=== PATIENT | female | born 1965 | race Hispanic/Latino ===

== ENCOUNTER 2019-08-10 18:23 | Emergency (ER) | payer OTHER, SELFPAY ==
[2019-08-10 18:50] LABS: Urine Blood 1+ (NEG); Urine Glucose NEGATIVE (NEG); Urine Protein NEGATIVE (NEG); Urine Specific Gravity >1.030 (1.005-1.030)
[2019-08-10 19:41] LABS: Absolute Lymphocytes (CBC) 2.3 K/uL (0.7-4.9); Basophils % 1.1 % (0-1.3); Hematocrit 32.2 % (36.0-45.0); Lymphocytes % 29.3 % (15.3-44.8); MPV 10.4 fL (7.6-11.3); RBC Red Blood Cell Count 4.62 M/uL (3.86-4.86)
[2019-08-10 20:06] LABS: Potassium 3.6 mmol/L (3.5-5.1)
[2019-08-10 20:08] LABS: ALT/SGPT 26 U/L (12-78); AST/SGOT 15 U/L (15-37); Albumin 3.8 g/dL (3.4-5.0); Alkaline Phosphatase 28 U/L (45-117); Bilirubin Direct < 0.1 mg/dL (0-0.2); Bilirubin Total 0.3 mg/dL (0.2-1.0); Lipase 93 U/L (73-393)
[2019-08-10] MEDS ORDERED: KETOROLAC 30 MG/ML INJ ONE (20:30)
[2019-08-10 20:35] LABS: Blood Morphology Comment NOTED (NOT SEEN); Elliptocytes 1+; Hypochromasia 1+; Platelet Estimate ADEQ; Urine White Blood Cell Casts OK
[2019-08-10 21:04] LABS: Urine Bacteria >50 /HPF (<20); Urine Culture Reflex Order REFLEXED
--- NOTE | 2019-08-10 21:19 | RAD REPORT ---
EXAM DESCRIPTION: CT - Abdomen Pelvis W Contrast - 08/10/2019 8:33 pm CLINICAL HISTORY: ABD PAIN COMPARISON: None. TECHNIQUE: Biphasic, helical CT imaging of the abdomen and pelvis was performed following 100 ml non -ionic IV contrast. No oral contrast administered. All CT scans are performed using dose optimization technique as appropriate and may include automated exposure control or mA/KV adjustment according to patient size. FINDINGS: No suspicious findings in the lung bases. Small hiatal hernia present. The liver, spleen, and pancreas show no suspicious findings. Cholecystectomy clips are present. No bi liary tree dilatation. Symmetric renal function is seen with no hydronephrosis or suspicious renal mass. No pyelonephritis o r acute parenchymal process. Contracted urinary bladder shows no suspicious finding. Uterus and ovari es show no suspicious findings. No adrenal abnormalities. No dilated bowel loops or bowel wall thickening. Appendix is normal. No free air, free fluid or infla mmatory stranding. No hernia, mass or bulky lymphadenopathy. No suspicious bony findings. IMPRESSION: No appendicitis or other acute right lower quadrant finding. No acute GI process identif iable. No acute or FREIGHT HUSTLER process seen. Small right ovarian cysts or follicles present not regarded as signi ficant.
[2019-08-10] MEDS ORDERED: CEFTRIAXONE/SWI 1gm 1 GM/10 ML SYR ONE (21:27)
--- NOTE | 2019-08-10 21:29 | ER ---
Nurse's Notes [facility] Name: Chelsea Sapp Age: 54 yrs Sex: Female : 1965 Arrival Date: 08/10/2019 Time: 18:25 Bed 14 Private MD: Diagnosis: Urinary tract infection, site not specified Presentation: 08/10 18:27 Presenting complaint: Patient states: RLQ pain, diarrhea, vaginal spotting started sr5 yesterday. Transition of care: patient was not received from another setting of care. Onset of symptoms was August 09, 2019. Risk Assessment: Do you want to hurt yourself or someone else? Patient reports no desire to harm self or others. Initial Sepsis Screen: Does the patient meet any 2 criteria? No. Patient's initial sepsis screen is negative. Does the patient have a suspected source of infection? No. Patient's initial sepsis screen is negative. Care prior to arrival: None. 18:27 Method Of Arrival: Ambulatory sr5 18:27 Acuity: CAMERON 3 sr5 Triage Assessment: 18:29 General: Appears in no apparent distress. Behavior is calm, cooperative. Pain: sr5 Complains of pain in right lower quadrant Pain currently is 10 out of 10 on a pain scale. Quality of pain is described as pressure, sharp. GI: Reports lower abdominal pain, diarrhea, vaginal bleeding Patient currently denies. : Denies burning with urination, pain urinary frequency. 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 - Social history:: Smoking status: Patient/guardian denies using tobacco, the patient reports quitting approximately 1 years ago. - Ebola Screening: : Patient negative for fever greater than or equal to 101.5 degrees Fahrenheit, and additional compatible Ebola Virus Disease symptoms. Screenin:25 Abuse screen: Denies threats or abuse. Nutritional screening: No deficits noted. lc1 Tuberculosis screening: No symptoms or risk factors identified. Fall Risk None identified. Assessment: 19:21 General: Appears in no apparent distress. comfortable, well groomed, Behavior is calm, lc1 cooperative. Pain: Complains of pain in abdomen and right lower quadrant Pain currently is 10 out of 10 on a pain scale. Quality of pain is described as sharp, Pain began 1 day ago. Is continuous. Neuro: No deficits noted. Cardiovascular: No deficits noted. Respiratory: Airway is patent Trachea midline Respiratory effort is even, unlabored. GI: Bowel sounds present X 4 quads. Abdomen is tender to palpation in right lower quadrant Reports diarrhea. : No signs and/or symptoms were reported regarding the genitourinary system. EENT: No signs and/or symptoms were reported regarding the EENT system. Derm: No signs and/or symptoms reported regarding the dermatologic system. Musculoskeletal: No signs and/or symptoms reported regarding the musculoskeletal system. 19:27 : Reports vaginal bleeding that is that started 08/09, along with the abdominal pain lc1 and diarrhea. LMP was 07/31. 20:00 Reassessment: No changes from previously documented assessment. Patient and/or family lc1 updated on plan of care and expected duration. Pain level reassessed. Patient is alert, oriented x 3, equal unlabored respirations, skin warm/dry/pink. Patient states symptoms have not improved. 21:00 Reassessment: No changes from previously documented assessment. Patient and/or family lc1 updated on plan of care and expected duration. Pain level reassessed. Patient is alert, oriented x 3, equal unlabored respirations, skin warm/dry/pink. Patient states symptoms have improved. Vital Signs: 18:29 BP 143 / 91; Pulse 97; Resp 16; Temp 98.0; Pulse Ox 100% on R/A; Weight 54.43 kg; sr5 Height 5 ft. 2 in. (157.48 cm); Pain 10/10; 19:25 BP 127 / 80; Pulse 89; Resp 18; Pulse Ox 100% on R/A; lc1 20:00 BP 129 / 90; Pulse 90; Resp 18; Pulse Ox 100% on R/A; lc1 21:00 BP 132 / 85; Pulse 91; Resp 18; Pulse Ox 100% on R/A; lc1 21:45 BP 126 / 96; Pulse 92; Resp 18; Temp 98.6(O); Pulse Ox 100% on R/A; lc1 18:29 Body Mass Index 21.95 (54.43 kg, 157.48 cm) sr5 ED Course: 18:25 Patient arrived in ED. rg4 18:29 Triage completed. sr5 18:29 Arm band placed on. sr5 18:55 [facility] kb 18:56 Garrick Nguyen MD is Attending Physician. kb 19:08 Nathalia Dunn is Primary Nurse. lc1 19:25 Patient has correct armband on for positive identification. Placed in gown. Bed in low lc1 position. Adult w/ patient. Pulse ox on. NIBP on. 19:29 Inserted saline lock: 20 gauge in left antecubital area, using aseptic technique. 6 19:54 Radiology exam delayed due to lab results not completed at this time. (BUN/Creatinine). 20:34 CT Abd/Pelvis - IV Contrast Only In Process Unspecified. EDMS 21:00 Door closed. Noise minimized. Lights dimmed. Warm blanket given. lc1 21:00 No provider procedures requiring assistance completed. 1 21:45 IV discontinued, intact, bleeding controlled, Pressure dressing applied. lc1 Administered Medications: 20:50 Drug: TORadol - Ketorolac 15 mg Route: IVP; Site: right antecubital; 1 21:13 Follow up: Response: Pain is decreased; RASS: Alert and Calm (0) 1 21:28 Drug: Rocephin 1 grams Route: IV; Rate: calculated rate; Site: right antecubital; 1 21:29 Follow up: Response: No adverse reaction lc1 21:47 Follow up: Response: No adverse reaction; IV Status: Completed infusion [facility] Outcome: 21:28 Discharge ordered by . kb 21:45 Discharged to home ambulatory. lc1 21:45 Condition: good 21:45 Discharge instructions given to patient, Instructed on discharge instructions, follow up and referral plans. medication usage, Demonstrated understanding of instructions, follow-up care, medications, Prescriptions given X 1. 21:47 Patient left the ED. lc1 Addendum: 08/13/2019 07:30 Addendum: Culture Results: Positive urine culture. No further action required. Bacteria e b sensitive to prescribed antibiotic. Signatures: Dispatcher [employer] EDFL Charo Browne FNP-C INDUSTRIAL DESIGN ENGINEER-Joshua Denton Nathalia Dunn lc1 Caesar Batres RN RN sr5 Janette Peterson rg4 Zayra Carrizales Candace cm6 Corrections: (The following items were deleted from the chart) 08/10 19:28 19:21 Musculoskeletal: No signs and/or symptoms reported regarding the musculoskeletal lc1 system. lc1
--- NOTE | 2019-08-10 21:30 | EDPHYS ---
Physician Documentation [facility] Name: Chelsea Sapp Age: 54 yrs Sex: Female : 1965 Arrival Date: 08/10/2019 Time: 18:25 Bed 14 Private MD: ED Physician Garrick Nguyen HPI: 08/10 19:55 This 54 yrs old Female presents to ER via Ambulatory with complaints of kb Abdominal Pain, Vaginal Bleeding. 19:55 The patient presents with abdominal pain. kb 19:55 Onset: The symptoms/episode began/occurred yesterday. The symptoms do not radiate. kb Associated signs and symptoms: Pertinent positives: diarrhea, vaginal bleeding. The symptoms are described as constant. Modifying factors: The symptoms are alleviated by nothing, the symptoms are aggravated by nothing. Severity of pain: At its worst the pain was mild moderate in the emergency department the pain is unchanged. The patient has not experienced similar symptoms in the past. The patient has not recently seen a physician. 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 - Social history:: Smoking status: Patient/guardian denies using tobacco, the patient reports quitting approximately 1 years ago. - Ebola Screening: : Patient negative for fever greater than or equal to 101.5 degrees Fahrenheit, and additional compatible Ebola Virus Disease symptoms. ROS: 19:50 Constitutional: Negative for fever, chills, and weight loss, ENT: Negative for injury, kb pain, and discharge, Neck: Negative for injury, pain, and swelling, Cardiovascular: Negative for chest pain, palpitations, and edema, Respiratory: Negative for shortness of breath, cough, wheezing, and pleuritic chest pain, Back: Negative for injury and pain, MS/Extremity: Negative for injury and deformity, Skin: Negative for injury, rash, and discoloration, Neuro: Negative for headache, weakness, numbness, tingling, and seizure. 19:50 Abdomen/GI: Positive for abdominal pain, diarrhea. 19:50 : Positive for vaginal bleeding. Exam: 19:52 Constitutional: This is a well developed, well nourished patient who is awake, alert, kb and in no acute distress. Head/Face: Normocephalic, atraumatic. ENT: Nares patent. No nasal discharge, no septal abnormalities noted. Tympanic membranes are normal and external auditory canals are clear. Oropharynx with no redness, swelling, or masses, exudates, or evidence of obstruction, uvula midline. Mucous membranes moist. Neck: Trachea midline, no thyromegaly or masses palpated, and no cervical lymphadenopathy. Supple, full range of motion without nuchal rigidity, or vertebral point tenderness. No Meningismus. Chest/axilla: Normal chest wall appearance and motion. Nontender with no deformity. No lesions are appreciated. Cardiovascular: Regular rate and rhythm with a normal S1 and S2. No gallops, murmurs, or rubs. Normal PMI, no JVD. No pulse deficits. Respiratory: Lungs have equal breath sounds bilaterally, clear to auscultation and percussion. No rales, rhonchi or wheezes noted. No increased work of breathing, no retractions or nasal flaring. Back: No spinal tenderness. No costovertebral tenderness. Full range of motion. Skin: Warm, dry with normal turgor. Normal color with no rashes, no lesions, and no evidence of cellulitis. MS/ Extremity: Pulses equal, no cyanosis. Neurovascular intact. Full, normal range of motion. Neuro: Awake and alert, GCS 15, oriented to person, place, time, and situation. Cranial nerves II-XII grossly intact. Motor strength 5/5 in all extremities. Sensory grossly intact. Cerebellar exam normal. Normal gait. 19:52 Abdomen/GI: Inspection: abdomen appears normal, Bowel sounds: normal, in all quadrants, Palpation: soft, in all quadrants, mild abdominal tenderness, in the right lower quadrant and left lower quadrant, moderate abdominal tenderness, in the right upper quadrant and left upper quadrant. Vital Signs: 18:29 BP 143 / 91; Pulse 97; Resp 16; Temp 98.0; Pulse Ox 100% on R/A; Weight 54.43 kg; sr5 Height 5 ft. 2 in. (157.48 cm); Pain 10/10; 19:25 BP 127 / 80; Pulse 89; Resp 18; Pulse Ox 100% on R/A; lc1 20:00 BP 129 / 90; Pulse 90; Resp 18; Pulse Ox 100% on R/A; lc1 21:00 BP 132 / 85; Pulse 91; Resp 18; Pulse Ox 100% on R/A; lc1 21:45 BP 126 / 96; Pulse 92; Resp 18; Temp 98.6(O); Pulse Ox 100% on R/A; lc1 18:29 Body Mass Index 21.95 (54.43 kg, 157.48 cm) sr5 MDM: 18:56 Patient medically screened. kb 19:55 Data reviewed: vital signs, nurses notes. Data interpreted: Pulse oximetry: on room air kb is 100 %. Interpretation: normal. 21:26 Counseling: I had a detailed discussion with the patient and/or guardian regarding: the kb historical points, exam findings, and any diagnostic results supporting the discharge/admit diagnosis, lab results, radiology results, the need for outpatient follow up, a family practitioner, to return to the emergency department if symptoms worsen or persist or if there are any questions or concerns that arise at home. 08/10 18:46 Order name: Urine Dipstick--Ancillary (enter results); Complete Time: 18:56 ar5 08/10 18:46 Order name: Urine --Ancillary (enter results); Complete Time: 18:56 ar5 08/10 18:56 Order name: Urine Microscopic Only; Complete Time: 21:06 kb 08/10 18:56 Order name: Basic Metabolic Panel; Complete Time: 20:08 kb 08/10 18:56 Order name: CBC with Diff; Complete Time: 20:37 kb 08/10 19:01 Order name: Lipase; Complete Time: 20:16 kb 08/10 18:56 Order name: IV Saline Lock; Complete Time: 21:13 kb 08/10 18:56 Order name: Labs collected and sent; Complete Time: 21:13 kb 08/10 19:01 Order name: LFT's; Complete Time: 20:16 kb 08/10 19:03 Order name: CT Abd/Pelvis - IV Contrast Only; Complete Time: 21:26 kb 08/10 20:36 Order name: CBC Smear Scan; Complete Time: 20:37 EDMS 08/10 21:06 Order name: Urine Culture EDMS Administered Medications: 20:50 Drug: TORadol - Ketorolac 15 mg Route: IVP; Site: right antecubital; lc1 21:13 Follow up: Response: Pain is decreased; RASS: Alert and Calm (0) 1 21:28 Drug: Rocephin 1 grams Route: IV; Rate: calculated rate; Site: right antecubital; lc1 21:29 Follow up: Response: No adverse reaction lc1 21:47 Follow up: Response: No adverse reaction; IV Status: Completed infusion lc1 Disposition: 08/11 05:54 Co-signature as Attending Physician, Garrick Nguyen MD I agree with the assessment and rn plan of care. Disposition: 08/10/19 21:28 Discharged to Home. Impression: Urinary tract infection, site not specified. - Condition is Stable. - Discharge Instructions: Urinary Tract Infection, Adult, [id number]. - Prescriptions for Macrobid 100 mg Oral Capsule - take 1 capsule by ORAL route every 12 hours for 10 days; 20 capsule. - Medication Reconciliation Form, Thank You Letter, Antibiotic Education, Prescription Opioid Use form. - Follow up: Emergency Department; When: As needed; Reason: Worsening of condition. Follow up: Private Physician; When: 2 - 3 days; Reason: Recheck today's complaints, Continuance of care, Re-evaluation by your physician. Signatures: Dispatcher [employer] EDHI Charo Browne, GOLF BALL TRIMMER-C GOLF BALL TRIMMER-Fritzb Garrick Nguyen MD MD rn Calhoun, Nathalia 1 Resecker, Caesar RN RN sr5 Corrections: (The following items were deleted from the chart) 08/10 19:50 19:50 Abdomen/GI: Positive for abdominal pain, kb 21:47 21:28 08/10/2019 21:28 Discharged to Home. Impression: Urinary tract infection, site lc1 not specified. Condition is Stable. Forms are Medication Reconciliation Form, Thank You Letter, Antibiotic Education, Prescription Opioid Use. Follow up: Emergency Department; When: As needed; Reason: Worsening of condition. Follow up: Private Physician; When: 2 - 3 days; Reason: Recheck today's complaints, Continuance of care, Re-evaluation by your physician. kb
[2019-08-10 22:28] VITALS: O2SAT 100
[2019-08-10 22:33] VITALS: BP 126/96; TEMP 98.6
== END 2019-08-10 21:47 | disposition home or self-care (01) ==
LOC: ER 18:23
DX: N39.0 Urinary tract infection, site not specified (principal)
CPT/HCPCS: 36415; 74177; 80048; 80076; 81003; 81015; 81025; 83690; 85025; 87077; 87086; 87088; 87186; 96365; 96375; 99284; J0696; Q9967

== ENCOUNTER 2020-05-06 17:57 | Inpatient (IN) | payer OTHER, SELFPAY ==
--- OUTSIDE RECORDS SUMMARY | 2020-05-06 17:59 | XMS REPORT | Continuity of Care Document ---
:1965 Author Organization [facility] t Address [address] [place] [address] Care Team Providers Name Role Phone Sea Barbosa Attending Clinician Problems This patient has no known problems. Allergies, Adverse Reactions, Alerts This patient has no known allergies or adverse reactions. Medications This patient has no known medications. Procedures This patient has no known procedures. Encounters Start End Encounter Admission Attending Care Care Encounter Source Date/Time Date/Time Type Type Clinicians Facility Department ID 2019-05-01 2019-05-01 Telephone GISSELLE Guzman [id number] 00:00:00 00:00:00 Lizbeth Osei NET DEVELOPER CONSULTANT [id number] REGIONAL [id number] MATERNAL [id number] & CHILD [address] [place] [address] Results This patient has no known results.
[2020-05-06] MEDS ORDERED: NA CHLORIDE 0.9% 2,000 ML ONE (18:43)
[2020-05-06] MEDS ORDERED: PIPER/TAZO/NS 3.375gm 3.375 GM/100 ML BAG ONE (19:06)
[2020-05-06] MEDS ORDERED: FENTANYL CITR 100 MCG/2 ML ONE (19:06)
[2020-05-06] MEDS ORDERED: ACETAMINOPHEN 500 MG TAB ONE (19:06)
[2020-05-06] MEDS ORDERED: CLINDAMYCIN 600MG/D5W 600 MG/50 ML BAG IV ONE (19:06)
[2020-05-06 19:20] LABS: Basophils % 0.5 % (0-1.3); Hematocrit 40.7 % (36.0-45.0); RBC Red Blood Cell Count 4.93 M/uL (3.86-4.86)
[2020-05-06 19:21] LABS: Protime INR 1.15
--- NOTE | 2020-05-06 19:24 | RAD REPORT ---
EXAM DESCRIPTION: RAD - Chest Single View - 05/06/2020 7:01 pm CLINICAL HISTORY: FEVER COMPARISON: None TECHNIQUE: AP portable chest image was obtained 05/06/2020 7:01 pm . FINDINGS: Lungs are clear. Heart and vasculature are normal. No measurable pleural effusion and no p neumothorax. No acute bony abnormality seen. No acute aortic findings suspected. IMPRESSION: No acute cardiopulmonary process.
[2020-05-06 19:45] LABS: ALT/SGPT 58 U/L (12-78); AST/SGOT 44 U/L (15-37); Albumin 3.6 g/dL (3.4-5.0); Alkaline Phosphatase 59 U/L (45-117); BUN Blood Urea Nitrogen 16 mg/dL (7-18); Bicarbonate 23 mmol/L (21-32); Bilirubin Direct 0.3 mg/dL (0-0.2); Bilirubin Total 0.9 mg/dL (0.2-1.0); CKMB Creatine Kinase MB < 1.0 ng/mL (0.3-3.6); Creatine Phosphokinase 33 U/L (26-192); Glucose Level 94 mg/dL (74-106); Lipase 48 U/L (73-393); Potassium 3.5 mmol/L (3.5-5.1); Protein, Total 9.2 g/dL (6.4-8.2); Sodium Level 134 mmol/L (136-145); Troponin (Emerg Dept Use Only) < 0.02 ng/mL (0.0-0.045)
--- NOTE | 2020-05-06 20:42 | RAD REPORT ---
EXAM DESCRIPTION: CT - Facial Bones W Con Mpr - 05/06/2020 8:14 pm CLINICAL HISTORY: Right-sided facial swelling COMPARISON: None. TECHNIQUE: Axial 2 millimeter thick images of the facial bones were obtained with sagittal and coron al reconstruction imaging. All CT scans are performed using dose optimization technique as appropriate and may include automated exposure control or mA/KV adjustment according to patient size. FINDINGS: Edema is seen in the right-sided facial tissues. Adjacent to the lateral margin of the max illary sinus, there is a 10 x 3 mm focal air in fluid collection. This is most likely a small abscess . This may be superior migration from the maxilla. The lateral maxillary sinus wall is intact. There is mucosal thickening but no air-fluid level in the right maxillary sinus. No bone destructive changes are identified. Mucosal thickening and air-fluid level are present fillin g the left maxillary sinus. Frontal, ethmoid and sphenoid sinuses show no suspicious findings. No jenni be or orbital content abnormality. No vascular abnormality. No abnormal lymphadenopathy seen. The pharyngeal mucosa is unremarkable. No tonsil, epiglottis, tongue base or vocal cord abnormality seen. IMPRESSION: Small 10 x 3 mm air in fluid collection along the lower lateral wall of the right maxill gregorio sinus suspected to be a small abscess. This may be due to superior migration from the maxilla pro cess. The right maxillary sinus shows mucosal thickening without air-fluid level. Lateral sinus wall is int act.
[2020-05-06 21:21] LABS: Urine Blood TRACE (NEG); Urine Glucose NEGATIVE (NEG); Urine Protein TRACE (NEG); Urine pH 5.5 (5.0-7.0)
--- NOTE | 2020-05-06 21:56 | ER ---
Nurse's Notes [facility] Name: Chelsea Sapp Age: 55 yrs Sex: Female : 1965 Arrival Date: 05/06/2020 Time: 18:00 Bed 3 Private MD: Diagnosis: Cellulitis of face;Periapical abscess with sinus Presentation: 05/06 18:15 Chief complaint: Patient states: Swelling of R side of face since yesterday. Denies ca1 tooth cavity on that side. Denies difficulty swallowing and breathing. Coronavirus screen: Client denies travel out of the [place] in the last 14 days. At this time, the client does not indicate any symptoms associated with coronavirus-19. Ebola Screen: Patient negative for fever greater than or equal to 101.5 degrees Fahrenheit, and additional compatible Ebola Virus Disease symptoms Patient denies exposure to infectious person. Patient denies travel to an Ebola-affected area in the 21 days before illness onset. No symptoms or risks identified at this time. Initial Sepsis Screen: Does the patient meet any 2 criteria? No. Patient's initial sepsis screen is negative. Does the patient have a suspected source of infection? No. Patient's initial sepsis screen is negative. Risk Assessment: Do you want to hurt yourself or someone else? Patient reports no desire to harm self or others. Onset of symptoms was May 06, 2020. 18:15 Method Of Arrival: Ambulatory ca1 18:15 Acuity: CAMERON 2 ca1 MANAGER OF CLINICAL: 23:02 lmp unknown mg2 Historical: - Allergies: 18:18 No Known Allergies; ca1 - Home Meds: 18:18 None [Active]; ca1 - PMHx: 18:18 None; ca1 - PSHx: 18:18 Cholecystectomy; ca1 - Immunization history:: Flu vaccine status is unknown. - Social history:: Smoking status: unknown. Screenin:40 Abuse screen: Denies threats or abuse. Nutritional screening: No deficits noted. em Tuberculosis screening: No symptoms or risk factors identified. Fall Risk None identified. Assessment: 21:00 General: Appears in no apparent distress. comfortable, Behavior is calm, cooperative. mg2 Pain: Complains of pain in face. Neuro: Level of Consciousness is awake, alert, obeys commands, Oriented to person, place, time, situation. Cardiovascular: Capillary refill < 3 seconds Patient's skin is warm and dry. Respiratory: Airway is patent Respiratory effort is even, unlabored, Respiratory pattern is regular, symmetrical. GI: No signs and/or symptoms were reported involving the gastrointestinal system. EENT: swelling noted in the right cheek. Derm: Skin is intact, Skin is pink, warm \T\ dry. Vital Signs: 18:15 BP 125 / 94; Pulse 145; Resp 17 S; Temp 99.4(O); Pulse Ox 99% on R/A; Weight 56.7 kg ca1 (R); Height 5 ft. 2 in. (157.48 cm) (M); Pain 10/10; 20:05 BP 109 / 79; Pulse 107; Resp 18; Pulse Ox 99% ; mg2 21:00 BP 111 / 72; Pulse 98; Resp 18; Pulse Ox 100% on R/A; mg2 22:57 BP 113 / 69; Pulse 100; Resp 18; Temp 98.4; Pulse Ox 100% on R/A; mg2 18:15 Body Mass Index 22.86 (56.70 kg, 157.48 cm) ca1 ED Course: 18:00 Patient arrived in ED. mr 18:15 Arm band placed on right wrist. ca1 18:17 Triage completed. ca1 18:19 Bjorn Vora PA is PHCP. jr8 18:19 Garrick Nguyen MD is Attending Physician. jr8 18:33 Blaise Barriga, RN is Primary Nurse. em 18:40 Patient has correct armband on for positive identification. Placed in gown. Bed in low em position. Call light in reach. alarm security or surveillance monitor on. Pulse ox on. NIBP on. 18:40 Initial lab(s) drawn, by me, sent to lab. Inserted saline lock: 20 gauge in left wrist, em using aseptic technique. Blood collected. 19:01 Chest Single View XRAY In Process Unspecified. EDMS 20:15 CT Facial Bones W/ Con \T\ Mpr In Process Unspecified. EDMS 21:55 Sharif Barker is Hospitalizing Provider. jr8 23:02 No provider procedures requiring assistance completed. Patient admitted, IV remains in mg2 place. Administered Medications: 18:40 Drug: NS 0.9% (30 ml/kg) 30 ml/kg Route: IV; Rate: bolus; Site: left wrist; em 19:07 Drug: Acetaminophen 1000 mg Route: PO; 20:52 Follow up: Response: No adverse reaction mg2 19:09 Drug: fentaNYL (PF) 50 mcg {Note: RASS 0.} Route: IVP; Site: left forearm; 20:05 Follow up: Response: No adverse reaction mg2 19:11 Drug: Clindamycin 600 mg Route: IVPB; Infused Over: 30 mins; Site: left forearm; 19:41 Drug: Zosyn 3.375 grams Route: IVPB; Infused Over: 60 mins; Site: left forearm; 22:02 Drug: Decadron - Dexamethasone 10 mg Route: IVP; Site: left wrist; rv 22:16 Follow up: Response: No adverse reaction mg2 Outcome: 21:55 Decision to Hospitalize by Provider. jr8 23:02 Admitted to Tele accompanied by [facility], via wheelchair, room 406, with chart, Report mg2 called to JUSTINA Locke 23:02 Condition: stable 23:02 Instructed on the need for admit, Demonstrated understanding of instructions. 23:07 Patient left the ED. mg2 Signatures: Dispatcher [employer] Leydi Knight Edgar, RN JUSTINA em Bjorn Vora PA PA jr8 [facility] Toro Millan RN RN mg2 Freddie Prakash RN RN Carito French RN RN ca1 Corrections: (The following items were deleted from the chart) 23:04 22:57 BP 113 / 69; Pulse 100bpm; Resp 18bpm; Pulse Ox 100% RA; Temp 99.5F; mg2 mg2
--- NOTE | 2020-05-06 21:56 | EDPHYS ---
Physician Documentation [facility] Name: Chelsea Sapp Age: 55 yrs Sex: Female : 1965 Arrival Date: 05/06/2020 Time: 18:00 Bed 3 Private MD: ED Physician Garrick Nguyen HPI: 05/06 20:52 This 55 yrs old Female presents to ER via Ambulatory with complaints of Facial jr8 Swelling. 20:52 Patient stated that she had facial swelling that started early today but has worsened. jr8 HR upon arrival was 150. Non toxic in appearance. Denies dental pain . Severity of symptoms: At their worst the symptoms were moderate in the emergency department the symptoms are unchanged. The patient has not experienced similar symptoms in the past. The patient has not recently seen a physician. 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 - Social history:: Smoking status: unknown. ROS: 20:52 Eyes: Negative for injury, pain, redness, and discharge, ENT: Negative for injury, jr8 pain, and discharge, Neck: Negative for injury, pain, and swelling, Cardiovascular: Negative for chest pain, palpitations, and edema, Respiratory: Negative for shortness of breath, cough, wheezing, and pleuritic chest pain, Abdomen/GI: Negative for abdominal pain, nausea, vomiting, diarrhea, and constipation, Back: Negative for injury and pain, MS/Extremity: Negative for injury and deformity, Neuro: Negative for headache, weakness, numbness, tingling, and seizure. 20:52 Skin: Positive for swelling, of the face. Exam: 20:52 Eyes: Pupils equal round and reactive to light, extra-ocular motions intact. Lids and jr8 lashes normal. Conjunctiva and sclera are non-icteric and not injected. Cornea within normal limits. Periorbital areas with no swelling, redness, or edema. ENT: Nares patent. No nasal discharge, no septal abnormalities noted. Tympanic membranes are normal and external auditory canals are clear. Oropharynx with no redness, swelling, or masses, exudates, or evidence of obstruction, uvula midline. Mucous membranes moist. Neck: Trachea midline, no thyromegaly or masses palpated, and no cervical lymphadenopathy. Supple, full range of motion without nuchal rigidity, or vertebral point tenderness. No Meningismus. Cardiovascular: Tachycardic with a normal S1 and S2. No gallops, murmurs, or rubs. Normal PMI, no JVD. No pulse deficits. Respiratory: Lungs have equal breath sounds bilaterally, clear to auscultation and percussion. No rales, rhonchi or wheezes noted. No increased work of breathing, no retractions or nasal flaring. Abdomen/GI: Soft, non-tender, with normal bowel sounds. No distension or tympany. No guarding or rebound. No evidence of tenderness throughout. Back: No spinal tenderness. No costovertebral tenderness. Full range of motion. Skin: Warm, dry with normal turgor. Normal color with no rashes, no lesions, and no evidence of cellulitis. MS/ Extremity: Pulses equal, no cyanosis. Neurovascular intact. Full, normal range of motion. Neuro: Awake and alert, GCS 15, oriented to person, place, time, and situation. Cranial nerves II-XII grossly intact. Motor strength 5/5 in all extremities. Sensory grossly intact. Cerebellar exam normal. Normal gait. 20:52 Head/face: Noted is swelling, that is moderate, of the right cheek, tenderness, that is moderate, of the right cheek, small amount of lower periorbital edema noted to right side as well from extension of swelling from maxilla region . Vital Signs: 18:15 BP 125 / 94; Pulse 145; Resp 17 S; Temp 99.4(O); Pulse Ox 99% on R/A; Weight 56.7 kg ca1 (R); Height 5 ft. 2 in. (157.48 cm) (M); Pain 10/10; 20:05 BP 109 / 79; Pulse 107; Resp 18; Pulse Ox 99% ; mg2 21:00 BP 111 / 72; Pulse 98; Resp 18; Pulse Ox 100% on R/A; mg2 22:57 BP 113 / 69; Pulse 100; Resp 18; Temp 98.4; Pulse Ox 100% on R/A; mg2 18:15 Body Mass Index 22.86 (56.70 kg, 157.48 cm) ca1 MDM: 18:20 Patient medically screened. 8 20:54 Data reviewed: vital signs, nurses notes, lab test result(s), radiologic studies, CT [facility] scan, plain films. Data interpreted: Pulse oximetry: on room air is 99 %. Interpretation: normal. Counseling: I had a detailed discussion with the patient and/or guardian regarding: the historical points, exam findings, and any diagnostic results supporting the discharge/admit diagnosis, lab results, radiology results, the need for further work-up and treatment in the hospital. 21:54 ED course: Talked to Dr. Muñoz who will see patient in inpatient room in the AM. Also [facility] talked with Dr. Morocho who will see patient once stabilized and discharge so he can do the tooth extraction and I\T\D if necessary. Will admit to hospitalist . 05/06 18:32 Order name: Basic Metabolic Panel; Complete Time: 20:11 [facility] 05/06 18:32 Order name: Blood Culture Adult (2) [facility] 05/06 18:32 Order name: CBC with Diff; Complete Time: 19:29 [facility] 05/06 18:32 Order name: Ckmb; Complete Time: 20:11 [facility] 05/06 18:32 Order name: CPK; Complete Time: 20:11 [facility] 05/06 18:32 Order name: Lactate; Complete Time: 19:29 [facility] 05/06 18:32 Order name: LFT's; Complete Time: 20:11 [facility] 05/06 18:32 Order name: Lipase; Complete Time: 20:11 [facility] 05/06 18:32 Order name: Procalcitonin; Complete Time: 20:22 [facility] 05/06 18:32 Order name: Protime (+inr); Complete Time: 20:11 [facility] 05/06 18:32 Order name: Ptt, Activated; Complete Time: 20:11 [facility] 05/06 18:32 Order name: Troponin (emerg Dept Use Only); Complete Time: 20:11 05/06 18:32 Order name: Urine Microscopic Only [facility] 05/06 18:32 Order name: TSH; Complete Time: 20:11 [facility] 05/06 18:28 Order name: EKG; Complete Time: 18:29 ca1 05/06 18:28 Order name: EKG - Nurse/Tech; Complete Time: 18:28 ca1 05/06 18:32 Order name: Chest Single View XRAY; Complete Time: 19:29 05/06 18:32 Order name: Accucheck; Complete Time: 18:34 05/06 18:32 Order name: T4 Free; Complete Time: 20:11 05/06 19:30 Order name: CT Facial Bones W/ Con \T\ Mpr; Complete Time: 20:43 05/06 20:53 Order name: Urine --Ancillary (enter results); Complete Time: 21:27 tt3 05/06 20:53 Order name: Urine Dipstick--Ancillary (enter results); Complete Time: 21:27 tt3 05/06 22:16 Order name: COVID-19 mg2 05/06 22:39 Order name: CONS Physician Consult [facility] 05/06 18:32 Order name: Cardiac monitoring; Complete Time: 18:34 05/06 18:32 Order name: IV Saline Lock - Large Bore; Complete Time: 19:11 05/06 18:32 Order name: Labs collected and sent; Complete Time: 18:34 05/06 18:32 Order name: O2 Per Protocol; Complete Time: 18:34 05/06 18:32 Order name: O2 Sat Monitoring; Complete Time: 18:34 05/06 18:32 Order name: Urine Dipstick-Ancillary (obtain specimen); Complete Time: 20:53 jr8 Administered Medications: 18:40 Drug: NS 0.9% (30 ml/kg) 30 ml/kg Route: IV; Rate: bolus; Site: left wrist; em 19:07 Drug: Acetaminophen 1000 mg Route: PO; wh 20:52 Follow up: Response: No adverse reaction mg2 19:09 Drug: fentaNYL (PF) 50 mcg {Note: RASS 0.} Route: IVP; Site: left forearm; wh 20:05 Follow up: Response: No adverse reaction mg2 19:11 Drug: Clindamycin 600 mg Route: IVPB; Infused Over: 30 mins; Site: left forearm; wh 19:41 Drug: Zosyn 3.375 grams Route: IVPB; Infused Over: 60 mins; Site: left forearm; wh 22:02 Drug: Decadron - Dexamethasone 10 mg Route: IVP; Site: left wrist; rv 22:16 Follow up: Response: No adverse reaction mg2 Disposition: 05/07 07:04 Co-signature as Attending Physician, Garrick Nguyen MD. rn Disposition: 05/06/20 21:55 Hospitalization ordered by Sharif Barker for Inpatient Admission. Preliminary diagnosis are Cellulitis of face, Periapical abscess with sinus. - Bed requested for Telemetry/MedSurg (Inpatient). - Status is Inpatient Admission. mg2 - Condition is Stable. - Problem is new. - Symptoms have improved. Signatures: Dispatcher [employer] Blaise Teixeira, RN RN em Garrick Nguyen MD MD rn Bjorn Vora PA PA jr8 Radha Peterson RN RN Kaitlin Garcia Toro Millan RN RN mg2 Freddie Prakash RN RN rv Acob, Carito RN RN ca1 Corrections: (The following items were deleted from the chart) 05/06 22:44 21:55 Hospitalization Ordered by Sharif Barker for Inpatient Admission. Preliminary cg diagnosis is Cellulitis of face; Periapical abscess with sinus. Bed requested for Telemetry/MedSurg (Inpatient). Status is Inpatient Admission. Condition is Stable. Problem is new. Symptoms have improved. jr8 23:07 22:44 05/06/2020 21:55 Hospitalization Ordered by Sharif Barker for Inpatient mg2 Admission. Preliminary diagnosis is Cellulitis of face; Periapical abscess with sinus. Bed requested for Telemetry/MedSurg (Inpatient). Status is Inpatient Admission. Condition is Stable. Problem is new. Symptoms have improved. cg
[2020-05-06] MEDS ORDERED: dexAMETHasone 10 MG/ML VIAL ONE (22:13)
--- NOTE | 2020-05-06 23:00 | P.HP ---
Certification for Inpatient With expected LOS: >2 Midnights Patient will require the following post-hospital care: None Practitioner: I am a practitioner with admitting privileges, knowledge of patient current condition, hospital course, and medical plan of care. Services: Services provided to patient in accordance with Admission requirements found in Title 42 Section 412.3 of the Code of Federal Regulations Patient History Date of Service: 05/06/20 Reason for admission: FACIAL CELLULITIS History of Present Illness: 55-year-old female with no significant past medical history presents to the emergency room complaining of facial swelling. Patient states that she noted some facial swelling earlier today and has progressively worsened. States that she has not had any issues prior to this. Has not seen a dentist in many years. Denies dental pain. In the emergency room patient was noted to have an elevated heart rate of almost 150. She does not appear toxic, in distress or septic. She is alert and oriented. Pleasant and cooperative. Patient is noted to have swelling on the right side ever face with some mild erythema. Facial CT shows a small 10 x 3 mm air in fluid collection consistent with a small abscess at the lower lateral wall of the right maxillary sinus. Chest x-ray shows no acute cardiopulmonary process. Patient will be admitted and further evaluated. Allergies No Known Allergies Allergy (Unverified 05/06/20 22:52) Home medications list reviewed: Yes - Past Medical/Surgical History Diabetic: No -: None -: None Psychosocial/ Personal History: Lives at home with 2 children - Family History Family History: Reviewed- Non-Contributory - Social History Smoking Status: Never smoker Alcohol use: No CD- Drugs: No Caffeine use: No Place of Residence: Home Review of Systems General: Fever, As per HPI Eyes: Unremarkable ENT: Mouth Swelling, As per HPI Respiratory: Unremarkable Cardiovascular: Unremarkable Gastrointestinal: Unremarkable Genitourinary: Unremarkable Musculoskeletal: Unremarkable Integumentary: Unremarkable Neurological: Unremarkable Lymphatics: Unremarkable Physical Examination - Vital Signs Temperature: 99.4 F Blood Pressure: 109/79 Pulse: 107 Respirations: 18 Pulse Ox (%): 99 (RA) - Physical Exam General: Alert, In no apparent distress, Oriented x3 HEENT: Atraumatic, PERRLA, Mucous membr. moist/pink, Other (Right cheek swelling with erythema, multiple caries and poor dentition) Neck: Supple, No Thyromegaly, Other (Trachea midline) Respiratory: Clear to auscultation bilaterally, Normal air movement Cardiovascular: No edema, Normal pulses Capillary refill: <2 Seconds Gastrointestinal: Normal bowel sounds, Soft and benign, Non-distended Musculoskeletal: No clubbing, No swelling, No contractures, No erythema Integumentary: No rashes, No breakdown, No significant lesion, No tenderness/swelling Neurological: Normal gait, Normal speech, Normal strength at 5/5 x4 extr, Normal tone - Studies Laboratory Data (last 24 hrs) 05/06/20 18:40: PT 13.5 H, INR 1.15, APTT 34.0 05/06/20 18:40: WBC 18.1 H, Hgb 13.8, Hct 40.7, Plt Count 259 05/06/20 18:40: Sodium 134 L, Potassium 3.5, BUN 16, Creatinine 0.92, Glucose 94, Total Bilirubin 0.9, AST 44 H, ALT 58, Alkaline Phosphatase 59, Lipase 48 L Assessment and Plan - Plan Impression: Facial cellulitis with small abscess seen on CT complicated by history of poor oral dentition and multiple caries: Plan: Facial cellulitis with small abscess seen on CT complicated by history of poor oral dentition and multiple caries: Patient be started on IV antibiotics clindamycin and Zosyn for empirical coverage. ENT was consulted-Dr. Muñoz who will see patient tomorrow. Patient also instructed to follow up with FS Dr. Molina after discharge. Clear liquid diet. Monitor vitals. Discharge Plan: Home Plan to discharge in: Greater than 2 days - Advance Directives Does patient have a Living Will: No Does patient have a Durable POA for Healthcare: No - Code Status/Comfort Care Code Status Assessed: Yes Time Spent Managing Pts Care (In Minutes): 55
[2020-05-06 23:36] VITALS: BMI 22.4
[2020-05-06] MEDS ORDERED: ACETAMINOPHEN 500 MG TAB PO PRN (23:45)
[2020-05-06] MEDS ORDERED: POTASSIUM CL SA 10 MEQ TAB PO ONE (23:49)
[2020-05-07] MEDS: NA CHLORIDE 0.9% 1,000 ML IV SCH ×2 (00:11→19:45)
[2020-05-07] MEDS ORDERED: PIPER/TAZO/NS 3.375gm 3.375 GM/100 ML BAG ONE (00:22)
[2020-05-07] MEDS ORDERED: CLINDAMYCIN 600MG/D5W 600 MG/50 ML BAG IV ONE (00:22)
[2020-05-07 00:26] LABS: Urine Appearance CLEAR; Urine Bilirubin NEGATIVE (NEG); Urine Blood NEGATIVE (NEG); Urine Color YELLOW; Urine Glucose NEGATIVE (NEG); Urine Protein NEGATIVE (NEG); Urine Specific Gravity >=1.030 (1.005-1.030); Urine pH 5.5 (5.0-7.0)
[2020-05-07] MEDS ORDERED: CLINDAMYCIN PHOSPHATE 600 MG in NA CHLORIDE 0.9% 50 ML IV SCH (01:00)
[2020-05-07] MEDS ORDERED: CLINDAMYCIN 600MG/D5W 600 MG/50 ML BAG IV SCH (01:00)
[2020-05-07 01:06] LABS: Urine Bacteria <20 /HPF (<20); Urine Culture Reflex Order REFLEXED; Urine RBC <5 /HPF (NONE SEEN)
[2020-05-07] MEDS ORDERED: PIPER/TAZO/NS 3.375gm 3.375 GM/100 ML BAG IVPB SCH ×2 (02:00→09:00)
[2020-05-07 05:53] LABS: Absolute Lymphocytes (CBC) 0.8 K/uL (0.7-4.9); Basophils % 0.1 % (0-1.3); Hematocrit 34.4 % (36.0-45.0); Lymphocytes % 7.6 % (15.3-44.8); MPV 9.8 fL (7.6-11.3)
[2020-05-07 06:01] LABS: BUN Blood Urea Nitrogen 14 mg/dL (7-18); Bicarbonate 20 mmol/L (21-32); Glucose Level 116 mg/dL (74-106); Magnesium 2.3 mg/dL (1.8-2.4); Potassium 4.3 mmol/L (3.5-5.1); Sodium Level 137 mmol/L (136-145)
[2020-05-07 07:20] LABS: Anisocytosis 1+; Blood Morphology Comment NOTED (NOT SEEN); Platelet Estimate ADEQ; White Blood Cell Scan OK (OK)
--- NOTE | 2020-05-07 07:20 | CON ---
Date of Consultation: 05/07/2020 Reason For Consultation: Facial swelling. History Of Present Illness: The patient is a 55-year-old female, who complains of a 2 to 3 day history of right facial pain and swelling. She was in her usual state of health on Wednesday, Aprber . She recalls eating some chips and is concerned she may have scratched the inside of her mouth. She subsequently was eating some chicken and noticed some soreness or pain with chewing on t he right side. Over the ensuing 48 hours, she developed right facial pain and swelling, and came to the emergency room for evaluation. Past Medical History: None. Past Surgical History: None. Home Medications: None. Allergies: NONE. In-hospital Medications: IV clindamycin and IV Zosyn. Social History: Denies tobacco, alcohol, or drug use. Review of Systems: Reviewed as documented in the emergency room documentation by Bjorn Gordon and is essentially unchang ed. Physical Examination: Vital Signs: Stable. The patient is currently afebrile. General: The patient is awake, alert, oriented, and conversive. She appears comfortable in bed. HEENT: She has mild facial swelling of the right cheek and right lower eyelid without palpable crepi tus. Her cheek is mildly tender. There is some induration over the lower part of the cheek, just la teral to the nasolabial fold. There is no significant redness of the skin at this time. Her externa l ears, external nose and lips are unremarkable. Intraorally, she has very poor dentition with sever e gingivitis. There is moderate edema and tenderness of the right upper gingiva without visible poin ting from an abscess. There are no loose teeth on palpation. The tongue, floor, mouth, and orophary nx are unremarkable. Neck: Soft and supple without significant palpable lymphadenopathy. She has full range of motion. Data: The patient's white count on admission was elevated at 18. This morning, she improved with a white count of approximately 11. Contrasted CT of the face is personally reviewed by me. There is m oderate soft tissue swelling of the right cheek. There is a subtle area of hyperlucency of 3 x 10 mm along the face of the maxilla. There is moderate mucosal thickening of the right maxillary sinus. There is moderate to severe opacification of the left maxillary sinus. There are multiple periapical lucencies of the maxillary teeth, which appear worse on the left side despite the patient's right-si ded facial cellulitis. There is a small area of air density within the area around the soft tissue s welling against the cheek. There is no obvious discontinuity within the face of the bony maxillary w all. I reviewed these findings with the ER staff at the time of her admission and have a strong susp icion for a dental origin for her infection. Assessment: Facial cellulitis. Plan: We will continue initial trial of medical therapy at this time. We will switch from full liqu id diet to clear liquid diet this morning. I will plan to reassess the patient around 12 or 1230 thi s afternoon and make a decision in regard to surgical intervention. If the patient is significantly improved, we will continue medical therapy. If she is not improving, we will make a plan for operati ve intervention, including an intraoral incision, drainage of abscess. My hope is that with the very small abscess cavity on the CT scan, she may respond to medical therapy. She will require urgent de ntal or maxillofacial surgery intervention to care for the teeth as a primary source of this infectio n. We will continue to follow along with you. MC Voice ID: [id number] Report ID: [id number]
[2020-05-07] MEDS: ENOXAPARIN 40 MG/0.4 ML SQ SCH (07:41)
[2020-05-07] MEDS: CLINDAMYCIN PHOSPHATE IV SCH ×2 (07:54→16:14)
[2020-05-07] MEDS: NA CHLORIDE 0.9% IV SCH ×2 (07:54→16:14)
--- NOTE | 2020-05-07 15:27 | P.PN ---
Subjective Date of Service: 05/07/20 Chief Complaint: FACIAL CELLULITIS Patient states her right facial swelling is better compared to yesterday. Physical Examination - Vital Signs Temperature: 97.8 F Blood Pressure: 105/56 Pulse: 88 Respirations: 16 Pulse Ox (%): 99 - Physical Exam General: Alert, In no apparent distress HEENT: Other (Right facial swelling) Respiratory: Clear to auscultation bilaterally, Normal air movement Cardiovascular: No edema, Regular rate/rhythm, Normal S1 S2 Gastrointestinal: Normal bowel sounds, Soft and benign, No tenderness Integumentary: No rashes Neurological: Other (Nonfocal) - Studies Laboratory Data (last 24 hrs) 05/06/20 18:40: PT 13.5 H, INR 1.15, APTT 34.0 05/06/20 18:40: WBC 18.1 H, Hgb 13.8, Hct 40.7, Plt Count 259 05/06/20 18:40: Sodium 134 L, Potassium 3.5, BUN 16, Creatinine 0.92, Glucose 94, Total Bilirubin 0.9, AST 44 H, ALT 58, Alkaline Phosphatase 59, Lipase 48 L Microbiology Data (last 24 hrs): 05/06/20 22:20 Nasopharnyx Coronavirus COVID-19 PCR - Final Assessment And Plan - Current Problems (Diagnosis) (1) Cellulitis and abscess of face Current Visit: Yes Status: Acute (2) Leukocytosis Current Visit: Yes Status: Acute - Plan Change antibiotics to IV Unasyn and clindamycin. Patient seen and evaluated by ENT-Dr. Muñoz. She is planned for examination and abscess drainage today. Pain management as needed.
[2020-05-07] MEDS: AMPICILLIN/SULBACT 1.5 GM in NA CHLORIDE 0.9% 100 ML IVPB SCH (16:14)
[2020-05-07] MEDS ORDERED: LIDOCAINE 1% W/EPI 1:100,000 MDV 20 ML VIAL ONE (16:29)
[2020-05-07] MEDS ORDERED: Ringers Lactate 1,000 ML IV ONE (16:30)
[2020-05-07] MEDS ORDERED: propofoL 200 MG/20 ML VIAL IV ONE (16:34)
[2020-05-07] MEDS ORDERED: LIDOCAINE 1% MPF 5 ML VIAL ONE (16:34)
[2020-05-07] MEDS ORDERED: FENTANYL CITR 100 MCG/2 ML ONE (16:34)
[2020-05-07] MEDS ORDERED: MIDAZOLAM HCL 2 MG/2 ML INJ ONE (16:34)
[2020-05-07] MEDS ORDERED: GLYCOPYRROLATE 0.2 MG/ML SYR ONE ×2 (16:34→16:35)
[2020-05-07] MEDS ORDERED: NEOSTIGMINE 1 MG/ML -5 ML ONE (16:35)
[2020-05-07] MEDS ORDERED: dexAMETHasone 4 MG/ML VIAL ONE (16:35)
[2020-05-07] MEDS ORDERED: ROCURONIUM 50 MG/5 ML VIAL IV ONE (16:36)
[2020-05-07] MEDS ORDERED: ONDANSETRON 4 MG/2 ML VIAL ONE (16:36)
[2020-05-07] MEDS ORDERED: KETOROLAC 30 MG/ML INJ ONE (17:35)
[2020-05-07] MEDS ORDERED: CHLORHEXIDINE 0.12% 473ML BOT MM ONE (17:45)
--- NOTE | 2020-05-07 17:59 | P.BOP ---
Preoperative diagnosis: facial abscess Postoperative diagnosis: facial cellulitis Primary procedure: I&D right face, intraoral approach Front Office Administrator: NONE,NONE Estimated blood loss: <10ml Specimen: none Findings: No мария purulence Anesthesia: General Complications: None Implants: none Fluids & blood products: crystalloid 200ml Transferred to: Recovery Room Condition: Good
[2020-05-07 18:33] VITALS: O2SAT 99
[2020-05-07] MEDS ORDERED: HYDROCODONE/APAP 5/325 MG TAB PO PRN (20:13)
--- NOTE | 2020-05-07 20:40 | OP ---
Surgeon: Daxa Muñoz MD Preoperative Diagnosis: Right facial abscess of odontogenic origin. Postoperative Diagnosis: Right facial abscess of odontogenic origin with suspicion for facial cellul itis. Indication For Procedure: Ms. Sapp presented with right facial swelling and facial pain. She was noted to have significant soft tissue swelling with a 10 x 3 mm abscess on the face of the right maxi lla with concerns radiographically on my read for a dental origin. She had mild to moderate mucosal thickening of the right maxillary sinus without obstruction of the ostiomeatal complex and multiple p eriapical lucencies on her maxillary teeth. She was treated with IV antibiotics for 3 doses with mil d improvement. However, due to the persistent presence of swelling, decision was made to proceed wit h operative intervention. The risks, benefits, and alternatives to the procedure were discussed with the patient, who agreed to proceed. Description Of Procedure: The patient was brought to the operating room. She was placed under gener al anesthetic via oral endotracheal tube. The head of bed was rotated approximately 45 degrees. A s mall mouth prop was placed between the left teeth to allow for better visualization. Cheek retractor was used to retract the upper lip and right oral commissure. The mucosa along the upper gingival bu ccal sulcus was injected with 2 mL of 1% lidocaine with epinephrine. A 1 cm incision through the muc griffin and submucosal tissues was made using a 15 blade scalpel. A clamp was used to probe into the sof t tissues of the cheek and along the face of the maxilla taking care to avoid extension towards the i nfraorbital foramen. After multiple areas of probing, no discrete fluid collection or pus was noted. Irrigation through an Angiocath was performed to irrigate and flush out the soft tissues, but again no мария purulence was noted. After multiple aliquots of irrigation, gauze sponge was applied to th e incision for several minutes to aid in hemostasis. The incision was left to heal spontaneously and the patient was returned to care of Anesthesia for awakening and extubation in the operating room. Disposition: The patient will return to the inpatient floor and continue IV antibiotics. She can re sume soft diet as tolerated. She is recommended to use chlorhexidine 3 times a day and to rinse her mouth well with water after meals. If she is doing well and tolerating diet and improved, she can be discharged in the morning according to the primary team. NIYA/MU Voice ID: [id number] Report ID: [id number]
[2020-05-07] MEDS: CHLORHEXIDINE 0.12% 473ML BOT MM SCH (21:00)
[2020-05-07] MEDS: MORPHINE 2 MG/ML SYR IV PRN (21:10)
[2020-05-08] MEDS: CLINDAMYCIN PHOSPHATE IV SCH ×2 (00:04→07:35)
[2020-05-08] MEDS: NA CHLORIDE 0.9% IV SCH ×2 (00:04→07:35)
[2020-05-08] MEDS: AMPICILLIN/SULBACT 1.5 GM in NA CHLORIDE 0.9% 100 ML IVPB SCH ×2 (00:04→07:35)
[2020-05-08] MEDS: NA CHLORIDE 0.9% 1,000 ML IV SCH (00:08)
[2020-05-08] MEDS: MORPHINE 2 MG/ML SYR IV PRN (04:25)
[2020-05-08] MEDS: ENOXAPARIN 40 MG/0.4 ML SQ SCH (07:35)
[2020-05-08] MEDS: CHLORHEXIDINE 0.12% 473ML BOT MM SCH (07:37)
[2020-05-08] MEDS ORDERED: KETOROLAC 30 MG/ML INJ IV PRN (10:52)
--- NOTE | 2020-05-08 11:02 | P.DS ---
Admission Date: 05/06/20 Discharge Date: 05/08/20 Disposition: ROUTINE DISCHARGE Discharge Condition: FAIR Reason for Admission: FACIAL CELLULITIS - Problems (1) Cellulitis and abscess of face Current Visit: Yes Status: Acute (2) Leukocytosis Current Visit: Yes Status: Acute Vital Signs/Physical Exam: Temp Pulse Resp BP Pulse Ox 98.4 F 84 18 118/64 98 05/08/20 08:00 05/08/20 08:00 05/08/20 08:00 05/08/20 08:00 05/08/20 08:00 Laboratory Data at Discharge: WBC 11.1 K/uL (4.3-10.9) H D 05/07/20 05:28 Hgb 11.6 g/dL (12.0-15.0) L 05/07/20 05:28 Hct 34.4 % (36.0-45.0) L D 05/07/20 05:28 Plt Count 207 K/uL (152-406) D 05/07/20 05:28 PT 13.5 SECONDS (9.5-12.5) H 05/06/20 18:40 INR 1.15 05/06/20 18:40 APTT 34.0 SECONDS (24.3-36.9) 05/06/20 18:40 Sodium 137 mmol/L (136-145) 05/07/20 05:28 Potassium 4.3 mmol/L (3.5-5.1) 05/07/20 05:28 BUN 14 mg/dL (7-18) 05/07/20 05:28 Creatinine 0.60 mg/dL (0.55-1.3) 05/07/20 05:28 Glucose 116 mg/dL (74-106) H 05/07/20 05:28 Magnesium 2.3 mg/dL (1.8-2.4) 05/07/20 05:28 Magnesium Cancelled 05/07/20 05:28 Total Bilirubin 0.9 mg/dL (0.2-1.0) 05/06/20 18:40 AST 44 U/L (15-37) H 05/06/20 18:40 ALT 58 U/L (12-78) 05/06/20 18:40 Alkaline Phosphatase 59 U/L (45-117) 05/06/20 18:40 Lipase 48 U/L (73-393) L 05/06/20 18:40 Home Medications: Amox/Clavulanate [Augmentin 875-125 Tab] 1 each PO BID #20 tab 05/08/20 Chlorhexidine 0.12% [Periogard*] 15 ml MM TID #1 btl 05/08/20 Codeine/APAP [Tylenol W/Codeine #3 tab] 1 tab PO Q6HP PRN #30 tab 05/08/20 Ibuprofen 800 mg PO Q8H PRN #60 tablet 05/08/20 clindamycin HCL [Clindamycin HCl] 300 mg PO Q6H #28 capsule 05/08/20 New Medications: Codeine/APAP [Tylenol W/Codeine #3 tab] 1 tab PO Q6HP PRN #30 tab PRN Reason: Pain Amox/Clavulanate [Augmentin 875-125 Tab] 1 each PO BID #20 tab clindamycin HCL [Clindamycin HCl] 300 mg PO Q6H #28 capsule Ibuprofen 800 mg PO Q8H PRN #60 tablet PRN Reason: pain Chlorhexidine 0.12% [Periogard*] 15 ml MM TID #1 btl Patient Discharge Instructions: You nee to see a dentist to examine your teeth and gums and treat gingivitis and caries. Diet: Regular (Soft diet) Activity: Ad chava Followup: Daxa Muñoz MD [ACTIVE - CAN ADMIT] - 1 Week
--- NOTE | 2020-05-08 12:06 | EKG ---
Test Date: 2020-05-06 Test Time: 18:26:19 Remote Encoding Operations Supervisor: EDGAR MEASUREMENT RESULTS: Intervals: Rate: 136 GA: 138 QRSD: 72 QT: 288 QTc: 433 [place]: P: 71 GA: 138 QRS: 67 T: 70 INTERPRETIVE STATEMENTS: Sinus tachycardia Otherwise normal ECG No previous ECG available for comparison Electronically Signed On 05-08-20 12:01:46 CDT by Walter Crane
[2020-05-08 12:08] VITALS: BP 111/66; TEMP 99.1
== END 2020-05-08 13:30 | disposition home or self-care (01) | DRG 580 ==
LOC: ER 17:57 → ERHOLD 22:37 → 4TH 23:02
PROVIDERS: ADMIT Internal Medicine; ATTEND Internal Medicine
PROC: 0J910ZZ Drainage of Face Subcutaneous Tissue and Fascia, Open Approach (ICD-10-PCS; principal; 2020-05-07 17:00)
DX: L03.211 Cellulitis of face (principal); L02.01 Cutaneous abscess of face; K02.9 Dental caries, unspecified; D72.829 Elevated white blood cell count, unspecified; Z90.49 Acquired absence of other specified parts of digestive tract; Z20.828 Contact with and (suspected) exposure to other viral communicable diseases
CPT/HCPCS: 36415; 70487; 71045; 76377; 80048; 80076; 81001; 81003; 81025; 82550; 82553; 83605; 83690; 83735; 84145; 84439; 84443; 84484; 85025; 85610; 85730; 87040; 87086; 87088; 93005; 99285; J0295; J1100; J1650; J2250; J2270; J2405; J2543; J2704; J2710; J3010; J7030; J7120; Q9967; S0077; U0002

== ENCOUNTER 2020-06-22 12:56 | Emergency (ER) | payer OTHER ==
--- OUTSIDE RECORDS SUMMARY | 2020-06-22 12:58 | XMS REPORT | Continuity of Care Document ---
:1965 Author Organization [facility] t Address [address] [place] [address] Care Team Providers Name Role Phone Sea [...] 2019-05-01 2019-05-01 Telephone GISSELLE Guzman [id number] 00:00:00 00:00:00 Lizbeth Osei MANAGED SERVICES CONSULTANT [id number] [facility] [id number] MATERNAL [phone] & CHILD [address] [place] [address] Results This patient has no known results.
[2020-06-22] MEDS ORDERED: HYDROCODONE/APAP 10/325 TAB ONE (13:31)
[2020-06-22] MEDS ORDERED: IBUPROFEN 400 MG TAB ONE (13:32)
[2020-06-22] MEDS ORDERED: DIAZEPAM 5 MG TABLET ONE (13:32)
--- NOTE | 2020-06-22 14:48 | RAD REPORT ---
EXAM DESCRIPTION: RAD - Lumbar Spine 3 Views - 06/22/2020 1:59 pm CLINICAL HISTORY: Back pain FINDINGS: [id number] scoliosis No fracture or dislocation is seen. Minimal spondylosis involves the lumbar spine
--- NOTE | 2020-06-22 14:59 | EDPHYS ---
Physician Documentation [facility] Name: Chelsea Sapp Age: 55 yrs Sex: Female : 1965 Arrival Date: 06/22/2020 Time: 13:00 Bed 13 Private MD: ED Physician Simón Pederson HPI: 06/22 13:17 This 55 yrs old Female presents to ER via Ambulatory with complaints of jmm Nausea, Back Pain. 13:17 The patient presents with pain that is acute. Onset: The symptoms/episode jmm began/occurred this morning. The pain radiates to the right leg. Associated signs and symptoms: Pertinent negatives: abdominal pain, chest pain, dysuria, fever, hematuria, incontinence, numbness, tingling, urinary retention, weakness. This is a 55 year old female with no chronic medical conditions that presents to the ED with complaints of right sided back pain with radiation down her right leg. Patient states she awoke with the pain this morning. Denies weakness, incontinence, bowel or urinary complaints. Denies known injury. . Historical: - Allergies: 13:11 No Known Allergies; hb - Home Meds: 13:11 None [Active]; hb - PMHx: 13:11 None; hb - PSHx: 13:11 Cholecystectomy; hb - Immunization history:: Adult Immunizations up to date. - Social history:: Smoking status: Patient denies any tobacco usage or history of. ROS: 13:17 Constitutional: Negative for fever, chills, and weight loss, Cardiovascular: Negative jmm for chest pain, palpitations, and edema, Respiratory: Negative for shortness of breath, cough, wheezing, and pleuritic chest pain. 13:17 Back: Positive for pain with movement. 13:17 MS/extremity: Positive for pain. 13:17 All other systems are negative. Exam: 13:17 Constitutional: This is a well developed, well nourished patient who is awake, alert, jmm and in no acute distress. Head/Face: atraumatic. Eyes: EOMI, no conjunctival erythema appreciated ENT: Moist Mucus Membranes Neck: Trachea midline, Supple Chest/axilla: Normal chest wall appearance and motion. Cardiovascular: Regular rate and rhythm. No edema appreciated Respiratory: Normal respirations, no respiratory distress appreciated Abdomen/GI: Non distended, soft 13:17 Skin: General appearance color normal MS/ Extremity: Moves all extremities, no obvious deformities appreciated, no edema noted to the lower extremities Neuro: Awake and alert, normal gait Psych: Behavior is normal, Mood is normal, Patient is cooperative and pleasant 13:17 Back: vertebral tenderness, is appreciated at L1, L2 and L3, Straight leg raises: right lower extremity illicits pain, at 45 degrees. 13:17 Neuro: extensor hallucis longus intact bilaterally. 13:17 Psych: Behavior/mood is pleasant, cooperative. 16:50 ECG was reviewed by the Attending Physician. [facility] Vital Signs: 13:10 BP 130 / 89; Pulse 110; Resp 16; Temp 97.8; Pulse Ox 100% on R/A; Pain 8/10; hb 14:21 BP 132 / 88; Pulse 94; Resp 16; Pulse Ox 99% on R/A; hb 15:30 BP 124 / 80; Pulse 77; Resp 16; Pulse Ox 99% on R/A; Pain 9/10; hb 16:30 BP 131 / 84; Pulse 84; Resp 15; Pulse Ox 100% on R/A; Pain 3/10; hb 17:23 BP 129 / 89; Pulse 80; Resp 15; Pulse Ox 99% on R/A; Pain 9/10; hb 17:50 BP 128 / 85; Pulse 88; Resp 16; Pulse Ox 100% ; ll1 MDM: 13:06 Patient medically screened. [facility] 14:55 Data reviewed: vital signs, nurses notes. Counseling: I had a detailed discussion with [facility] the patient and/or guardian regarding: the historical points, exam findings, and any diagnostic results supporting the discharge/admit diagnosis, radiology results, the need for outpatient follow up, to return to the emergency department if symptoms worsen or persist or if there are any questions or concerns that arise at home. ED course: Pain relieved in the back, still some pain radiating down the right leg. I do not suspect cauda equina. Patient is advised to follow up with pcp for reevaluation. patient understood and agrees with the plan of care. . 17:33 ED course: Upon initial discharge, the patient developed mid sternal chest pain [facility] described as sharp and burning which did not radiate. Further labs and imaging were negative. Symptoms were alleviated with GI cocktail. HEART score = 3, still considered low risk. Patient is given strict return precautions. Patient understood and agrees with the plan of care. . 06/22 15:28 Order name: Basic Metabolic Panel; Complete Time: 16:16 [facility] 06/22 15:28 Order name: CBC with Diff; Complete Time: 15:52 [facility] 06/22 15:28 Order name: LFT's; Complete Time: 16:16 [facility] 06/22 15:28 Order name: Magnesium; Complete Time: 16:16 [facility] 06/22 15:28 Order name: NT PRO-BNP; Complete Time: 16:16 [facility] 06/22 15:28 Order name: PT-INR; Complete Time: 15:52 [facility] 06/22 13:13 Order name: Lumbar Spine (3 Views) XRAY; Complete Time: 14:51 [facility] 06/22 15:28 Order name: Troponin (emerg Dept Use Only); Complete Time: 16:16 [facility] 06/22 15:28 Order name: XRAY Chest (1 view); Complete Time: 16:49 [facility] 06/22 15:29 Order name: CT Aorta for Dissection; Complete Time: 16:49 [facility] 06/22 15:28 Order name: EKG; Complete Time: 15:28 [facility] 06/22 15:28 Order name: Cardiac monitoring; Complete Time: 15:50 [facility] 06/22 15:28 Order name: EKG - Nurse/Tech; Complete Time: 15:50 [facility] 06/22 15:28 Order name: IV Saline Lock; Complete Time: 15:50 [facility] 06/22 15:28 Order name: Labs collected and sent; Complete Time: 15:50 [facility] 06/22 15:28 Order name: O2 Per Protocol; Complete Time: 15:50 [facility] 06/22 15:28 Order name: O2 Sat Monitoring; Complete Time: 15:50 jmm EC:50 Rate is 78 beats/min. Rhythm is regular. QRS Rossiter is Normal. MN interval is normal. QRS jmm interval is normal. QT interval is normal. No Q waves. T waves are Flattened in lead aVL. No ST changes noted. Reviewed by me. Administered Medications: 13:21 Drug: Ibuprofen 800 mg Route: PO; hb 14:21 Follow up: Response: No adverse reaction hb 13:22 Drug: [place] 10 mg-325 mg 1 tabs Route: PO; hb 14:21 Follow up: Response: No adverse reaction hb 13:22 Drug: Valium 5 mg Route: PO; hb 14:21 Follow up: Response: No adverse reaction hb 17:20 Drug: GI Cocktail without - (Maalox Suspension 30 ml, Lidocaine Liquid 2 % 15 hb ml) Route: PO; 18:32 Follow up: Response: No adverse reaction; RASS: Alert and Calm (0) ll1 17:20 Drug: morphine 2 mg Route: IVP; Site: right antecubital; hb 18:32 Follow up: Response: No adverse reaction; RASS: Alert and Calm (0) ll1 17:20 Drug: Zofran (Ondansetron) 4 mg Route: IVP; Site: right antecubital; hb 18:32 Follow up: Response: No adverse reaction; RASS: Alert and Calm (0) ll1 Disposition: 06/22/20 17:35 Discharged to Home. Impression: Chest pain, unspecified, Sciatica, right side. - Condition is Stable. - Discharge Instructions: Nonspecific Chest Pain, Sciatica. - Prescriptions for Ultracet 37.5- 325 mg Oral Tablet - take 1 tablet by ORAL route every 6 hours - for up to 5 days; do not exceed 8 tablets per day.; 20 tablet. orphenadrine citrate 100 mg Oral Tablet Sustained Release - take 1 tablet by ORAL route 2 times per day As needed; 20 tablet. Pepcid 20 mg Oral Tablet - take 1 tablet by ORAL route once daily; 20 tablet. - Work release form, Medication Reconciliation Form, Thank You Letter, Antibiotic Education, Prescription Opioid Use form. - Follow up: Private Physician; When: 2 - 3 days; Reason: Recheck today's complaints, Continuance of care, Re-evaluation by your physician. Addendum: 06/24/2020 08:46 Co-signature as Attending Physician, Simón Pederson MD I agree with the assessment and c abad plan of care. Signatures: Dispatcher [employer] Simón Vega MD MD cha Mickail, Joel, PA PA jmm Baxter, Heather, RN RN Alex Guzman RN RN ll1 Corrections: (The following items were deleted from the chart) 06/22 15:33 14:58 06/22/2020 14:58 Discharged to Home. Impression: Sciatica, right side. Condition jmm is Stable. Forms are Medication Reconciliation Form, Thank You Letter, Antibiotic Education, Prescription Opioid Use. Follow up: Private Physician; When: 2 - 3 days; Reason: Recheck today's complaints, Continuance of care, Re-evaluation by your physician. elyssa 17:58 17:35 06/22/2020 17:35 Discharged to Home. Impression: Chest pain, unspecified; ll1 Sciatica, right side. Condition is Stable. Prescriptions for Ultracet 37.5-325 mg Oral Tablet - take 1 tablet by ORAL route every 6 hours - for up to 5 days; do not exceed 8 tablets per day.; 20 tablet, Zanaflex 4 mg Oral Tablet - take 1 tablet by ORAL route every 8 hours As needed; 20 tablet, Medrol (Gelacio) 4 mg Oral Tablets, Dose Pack - take 1 tablet by ORAL route as directed - follow package instructions; 1 packet. and Forms are Medication Reconciliation Form, Thank You Letter, Antibiotic Education, Prescription Opioid Use. Follow up: Private Physician; When: 2 - 3 days; Reason: Recheck today's complaints, Continuance of care, Re-evaluation by your physician. elysas
--- NOTE | 2020-06-22 14:59 | ER ---
Nurse's Notes [facility] Name: Chelsea Sapp Age: 55 yrs Sex: Female : 1965 Arrival Date: 06/22/2020 Time: 13:00 Bed 13 Private MD: Diagnosis: Chest pain, unspecified;Sciatica, right side Presentation: 06/22 13:10 Chief complaint: Low back pain that radiates to right leg and right arm pain since hb yesterday. Denies injury, works as [employer]. Coronavirus screen: At this time, the client does not indicate any symptoms associated with coronavirus-19. Ebola Screen: No symptoms or risks identified at this time. Initial Sepsis Screen: Does the patient meet any 2 criteria? HR > 90 bpm. No. Patient's initial sepsis screen is negative. Does the patient have a suspected source of infection? No. Patient's initial sepsis screen is negative. Risk Assessment: Do you want to hurt yourself or someone else? Patient reports no desire to harm self or others. Onset of symptoms was June 21, 2020. 13:10 Method Of Arrival: Ambulatory hb 13:10 Acuity: CAMERON 4 hb 15:32 Acuity: CAMERON 2 iw Triage Assessment: 13:11 General: Appears in no apparent distress. Behavior is calm, cooperative. Pain: Pain hb currently is 8 out of 10 on a pain scale. EENT: No signs and/or symptoms were reported regarding the EENT system. Neuro: Level of Consciousness is awake, alert, obeys commands, Oriented to person, place, time, situation. Cardiovascular: Capillary refill < 3 seconds Patient's skin is warm and dry. Respiratory: Respiratory effort is even, unlabored, Respiratory pattern is regular, symmetrical. GI: No signs and/or symptoms were reported involving the gastrointestinal system. : No signs and/or symptoms were reported regarding the genitourinary system. Derm: Skin is pink, warm \T\ dry. Musculoskeletal: Reports low back pain that radiates to right leg, right arm pain. Historical: - Allergies: 13:11 No Known Allergies; hb - Home Meds: 13:11 None [Active]; hb - PMHx: 13:11 None; hb - PSHx: 13:11 Cholecystectomy; hb - Immunization history:: Adult Immunizations up to date. - Social history:: Smoking status: Patient denies any tobacco usage or history of. Screenin:13 Abuse screen: Denies threats or abuse. Denies injuries from another. Nutritional hb screening: No deficits noted. Tuberculosis screening: No symptoms or risk factors identified. Fall Risk None identified. Assessment: 13:12 General: see triage . hb 14:00 Reassessment: Patient appears in no apparent distress at this time. Patient and/or hb family updated on plan of care and expected duration. Pain level reassessed. Patient is alert, oriented x 3, equal unlabored respirations, skin warm/dry/pink. 14:55 Reassessment: Patient appears in no apparent distress at this time. Patient and/or hb family updated on plan of care and expected duration. Pain level reassessed. Patient is alert, oriented x 3, equal unlabored respirations, skin warm/dry/pink. 16:25 Reassessment: Pt c/o sudden onset sharp substernal chest pain. MADISON Mendoza notified. Orders hb given. 17:22 Reassessment: Pt reports chest pain 9/10, medicated as ordered. VSS. hb Vital Signs: 13:10 BP 130 / 89; Pulse 110; Resp 16; Temp 97.8; Pulse Ox 100% on R/A; Pain 8/10; hb 14:21 BP 132 / 88; Pulse 94; Resp 16; Pulse Ox 99% on R/A; hb 15:30 BP 124 / 80; Pulse 77; Resp 16; Pulse Ox 99% on R/A; Pain 9/10; hb 16:30 BP 131 / 84; Pulse 84; Resp 15; Pulse Ox 100% on R/A; Pain 3/10; hb 17:23 BP 129 / 89; Pulse 80; Resp 15; Pulse Ox 99% on R/A; Pain 9/10; hb 17:50 BP 128 / 85; Pulse 88; Resp 16; Pulse Ox 100% ; ll1 ED Course: 13:00 Patient arrived in ED. mr 13:06 Reji White PA is PHCP. jmm 13:06 Simón Pederson MD is Attending Physician. jmm 13:10 Sharee Barriga, RN is Primary Nurse. hb 13:11 Triage completed. hb 13:11 Arm band placed on. hb 13:13 Patient has correct armband on for positive identification. Bed in low position. Call hb light in reach. 13:54 Lumbar Spine (3 Views) XRAY In Process Unspecified. EDMS 15:40 EKG done, by ED staff, reviewed by Reji WALLACE. dh3 15:57 XRAY Chest (1 view) In Process Unspecified. EDMS 16:12 CT Aorta for Dissection In Process Unspecified. EDMS 16:32 Inserted saline lock: 20 gauge in right antecubital area, using aseptic technique. hb Blood collected. 17:50 IV discontinued, intact, bleeding controlled, No redness/swelling at site. Pressure ll1 dressing applied. 18:30 No provider procedures requiring assistance completed. ll1 Administered Medications: 13:21 Drug: Ibuprofen 800 mg Route: PO; hb 14:21 Follow up: Response: No adverse reaction hb 13:22 Drug: [place] 10 mg-325 mg 1 tabs Route: PO; hb 14:21 Follow up: Response: No adverse reaction hb 13:22 Drug: Valium 5 mg Route: PO; hb 14:21 Follow up: Response: No adverse reaction hb 17:20 Drug: GI Cocktail without - (Maalox Suspension 30 ml, Lidocaine Liquid 2 % 15 hb ml) Route: PO; 18:32 Follow up: Response: No adverse reaction; RASS: Alert and Calm (0) ll1 17:20 Drug: morphine 2 mg Route: IVP; Site: right antecubital; hb 18:32 Follow up: Response: No adverse reaction; RASS: Alert and Calm (0) ll1 17:20 Drug: Zofran (Ondansetron) 4 mg Route: IVP; Site: right antecubital; hb 18:32 Follow up: Response: No adverse reaction; RASS: Alert and Calm (0) ll1 Outcome: 14:58 Discharge ordered by . elyssa 17:35 Discharge ordered by . elyssa 17:58 Patient left the ED. ll1 17:58 Discharged to home ambulatory. ll1 17:58 Condition: stable 17:58 Discharge instructions given to patient, Instructed on discharge instructions, follow up and referral plans. no drinking with medication, no driving heavy equipment, medication usage, Demonstrated understanding of instructions, follow-up care, medications, Prescriptions given X 3. Signatures: Dispatcher [employer] EDReji Hawk PA PA jmm Rivera, Mary mr Williams, Irene, RN RN iw Sharee Barriga RN RN Nery Muñoz [facility] Alex Fagan RN RN ll1 Corrections: (The following items were deleted from the chart) 16:58 16:25 Reassessment: Pt c/o sudden onset sharp substernal chest pain. MADISON Mendoza notified. hb hb
[2020-06-22 15:49] LABS: Absolute Lymphocytes (CBC) 2.1 K/uL (0.7-4.9); Basophils % 1.1 % (0-1.3); Hematocrit 34.2 % (36.0-45.0); MPV 10.1 fL (7.6-11.3); Protime INR 0.95; RBC Red Blood Cell Count 4.05 M/uL (3.86-4.86)
[2020-06-22 16:09] LABS: ALT/SGPT 22 U/L (12-78); AST/SGOT 18 U/L (15-37); Albumin 3.8 g/dL (3.4-5.0); Alkaline Phosphatase 33 U/L (45-117); BUN Blood Urea Nitrogen 11 mg/dL (7-18); Bicarbonate 27 mmol/L (21-32); Bilirubin Direct 0.1 mg/dL (0-0.2); Bilirubin Total 0.5 mg/dL (0.2-1.0); Glucose Level 89 mg/dL (74-106); Magnesium 2.3 mg/dL (1.8-2.4); NT PRO-BNP 34 pg/mL (<125); Potassium 4.1 mmol/L (3.5-5.1); Protein, Total 7.5 g/dL (6.4-8.2); Sodium Level 141 mmol/L (136-145); Troponin (Emerg Dept Use Only) < 0.02 ng/mL (0.0-0.045)
--- NOTE | 2020-06-22 16:40 | RAD REPORT ---
EXAM DESCRIPTION: CT - Angio Aorta For Dissection - 06/22/2020 4:12 pm CLINICAL HISTORY: . Chest and abd pain COMPARISON: CT abdomen 2019 TECHNIQUE: Computed tomography angiography of the chest, abdomen pelvis were obtained. 100 cc Isovue 370 was administered intravenously. Coronal and sagittal reconstruction were performed. MIP 3D reconstruction was performed All CT scans are performed using dose optimization technique as appropriate and may include automated exposure control or mA/KV adjustment according to patient size. FINDINGS: An aortic dissection is not seen. An aortic aneurysm is not displayed. The celiac, SMA and ANGIE are patent . A lung consolidation is not present. A pericardial effusion is not seen. A pleural effusion is not n oted. The liver has a diffuse heterogeneous density. Spleen, adrenals and kidneys appear unremarkable The pancreatic body and tail are absent. The pancreatic head is mildly prominent. The density is norm al. Normal appendix. No evidence of diverticulitis. 2 centimeter left ovarian cyst without significant fr ee fluid. Small hiatal hernia Endometrial stripe is prominent IMPRESSION: Negative for an aortic dissection. Diffusely heterogeneous hepatic density may indicate inflammation 2 centimeter left ovarian cyst without significant free fluid Absent body and tail of the pancreas. Mild prominence of the pancreatic head. Given the normal densit y this probably is not significant. Followup pelvic ultrasound is recommended in 2 months for re-eval uation Endometrial stripe is prominent. If the patient is premenopausal this is normal If the patient is postmenopausal this could indicate hyperplasia, polyp or neoplasm
--- NOTE | 2020-06-22 16:48 | RAD REPORT ---
EXAM DESCRIPTION: Omar Single View06/22/2020 3:56 pm CLINICAL HISTORY: Chest pain COMPARISON: April 2020 FINDINGS: The lungs appear clear of acute infiltrate. The heart is normal size IMPRESSION: No acute abnormalities displayed
[2020-06-22] MEDS ORDERED: ONDANSETRON 4 MG/2 ML VIAL ONE (17:29)
[2020-06-22] MEDS ORDERED: LIDOCAINE VISCOUS 2% SOLN 15 ML UDC ONE (17:29)
[2020-06-22] MEDS ORDERED: MAGNES/ALUMIN/SIMET 30ML UCUP ONE (17:29)
[2020-06-22] MEDS ORDERED: MORPHINE 2 MG/ML SYR ONE (17:29)
[2020-06-22 18:14] VITALS: TEMP 97.8
[2020-06-22 18:20] VITALS: BP 129/89; O2SAT 99
--- NOTE | 2020-06-24 07:27 | EKG ---
Test Date: 2020-06-22 Test Time: 15:38:17 Calender Let Off Operator: BILLIE MEASUREMENT RESULTS: Intervals: Rate: 78 VT: 160 QRSD: 74 QT: 366 QTc: 417 [place]: P: 69 VT: 160 QRS: 65 T: 68 INTERPRETIVE STATEMENTS: Normal sinus rhythm Septal infarct, age undetermined Abnormal ECG Compared to ECG 05/06/2020 18:26:19 Myocardial infarct finding now present Sinus tachycardia no longer present Electronically Signed On 06-24-20 07:23:50 TUBE HANDLER by Walter Crane
== END 2020-06-22 17:58 | disposition home or self-care (01) ==
LOC: ER 12:56
DX: R07.9 Chest pain, unspecified (principal); M54.31 Sciatica, right side
CPT/HCPCS: 93005; 85025; 80048; 36415; 83735; 85610; 82565; 80076; 84484; 83880; 71275; 74175; 71045; 72100; 96375; 96374; 99284; Q9967; J2270; J2405

== ENCOUNTER 2021-05-19 10:21 | Emergency (ER) | payer OTHER ==
[2021-05-19 10:58] LABS: Urine Blood 3+ (Negative); Urine Glucose Negative (Negative); Urine Protein 3+ (Negative); Urine Specific Gravity >=1.030 (1.005-1.030); Urine pH 5.5 (5.0-7.0)
--- NOTE | 2021-05-19 11:44 | RAD REPORT ---
EXAM DESCRIPTION: US - Transvaginal Study Probe - 05/19/2021 11:27 am CLINICAL HISTORY: Abdominal pain/vaginal bleeding COMPARISON: none FINDINGS: The uterus measures 8 x 4 x 5cm. A fibroid is not seen. Endometrial stripe measures 4 mill imeters The ovaries are normal in size and echotexture. 1.8 centimeter right ovarian cyst. No significant free fluid is seen. IMPRESSION: No significant abnormalities is displayed
[2021-05-19 11:50] LABS: Absolute Lymphocytes (CBC) 1.5 K/uL (0.7-4.9); Basophils % 0.6 % (0-1.3); Lymphocytes % 20.1 % (15.3-44.8); MPV 9.3 fL (7.6-11.3); RBC Red Blood Cell Count 4.58 M/uL (3.86-4.86)
--- NOTE | 2021-05-19 12:02 | RAD REPORT ---
EXAM DESCRIPTION: CT - Abdomen Pelvis Wo Contrast - 05/19/2021 11:20 am CLINICAL HISTORY: Abdominal pain COMPARISON: 2019 TECHNIQUE: Computed axial tomography of the abdomen and pelvis was obtained. IV and oral contrast we re not requested. All CT scans are performed using dose optimization technique as appropriate and may include automated exposure control or mA/KV adjustment according to patient size. FINDINGS: The evaluation of solid organs, vessels and bowel is limited secondary to the lack of con trast administration. Scattered ground-glass opacities within the lower lobes. The liver, spleen, pancreas, and kidneys appear grossly normal. Bilateral nephrocalcinosis within the kidneys. No hydronephrosis. The appendix is normal. There is no evidence of diverticulitis. 1.8 centimeter right ovarian cyst. Nabothian cysts within the cervix. Small to moderate hiatal hernia IMPRESSION: Scattered ground-glass opacities within the lower lobes may indicate pneumonia. Bronchoa lveolar cell carcinoma can have this appearance but is considered less likely. Followup is recommende d Bilateral nephrocalcinosis within the kidneys. No hydronephrosis.
[2021-05-19] MEDS ORDERED: KETOROLAC 30 MG/ML INJ ONE (12:05)
[2021-05-19 12:24] LABS: Potassium 4.1 mmol/L (3.5-5.1)
--- NOTE | 2021-05-19 12:47 | EDPHYS ---
Physician Documentation [facility] Name: Chelsea Sapp Age: 56 yrs Sex: Female : 1965 Arrival Date: 05/19/2021 Time: 10:23 Bed 13 Private MD: ED Physician Garrick Nguyen HPI: 05/19 11:04 This 56 yrs old Female presents to ER via Ambulatory with complaints of jr8 Vaginal Bleeding. 11:04 Onset: The symptoms/episode began/occurred gradually, 4 day(s) ago. Modifying factors: jr8 The symptoms are alleviated by nothing, the symptoms are aggravated by nothing. Associated signs and symptoms: Pertinent positives: cramping. Severity of symptoms: At their worst the symptoms were moderate, in the emergency department the symptoms are unchanged. The patient has not experienced similar symptoms in the past. The patient has not recently seen a physician. This is a 56-year-old female patient that presented to the emergency room with complaints of vaginal bleeding and cramping that started 4 days ago. Patient stated that she had recently received a Regeneron shot for Covid. Has had irregular menstrual cycles as she has been going through menopause. When this started 4 days ago was very painful which she has not experienced in the past. Said that she goes through about 3 pads per day currently. Denies any other symptoms at this time.. 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 - Social history:: Smoking status: Patient denies any tobacco usage or history of. ROS: 11:04 Cardiovascular: Negative for chest pain, palpitations, and edema, Respiratory: Negative jr8 for shortness of breath, cough, wheezing, and pleuritic chest pain. 11:04 Abdomen/GI: Positive for abdominal pain, nausea. 11:04 : Positive for vaginal bleeding, menstrual abnormality, Negative for urinary symptoms. 11:04 All other systems are negative. Exam: 11:04 Constitutional: This is a well developed, well nourished patient who is awake, alert, jr8 and in no acute distress. Cardiovascular: Regular rate and rhythm with a normal S1 and S2. No gallops, murmurs, or rubs. Normal PMI, no JVD. No pulse deficits. Respiratory: Lungs have equal breath sounds bilaterally, clear to auscultation and percussion. No rales, rhonchi or wheezes noted. No increased work of breathing, no retractions or nasal flaring. Back: No spinal tenderness. No costovertebral tenderness. Full range of motion. Skin: Warm, dry with normal turgor. Normal color with no rashes, no lesions, and no evidence of cellulitis. MS/ Extremity: Pulses equal, no cyanosis. Neurovascular intact. Full, normal range of motion. Neuro: Awake and alert, GCS 15, oriented to person, place, time, and situation. Cranial nerves II-XII grossly intact. Motor strength 5/5 in all extremities. Sensory grossly intact. 11:04 Abdomen/GI: Inspection: obese Bowel sounds: active, all quadrants, Palpation: soft, in all quadrants, moderate abdominal tenderness, in the suprapubic area, right lower quadrant and left lower quadrant, mass, is not appreciated, rebound tenderness, is not appreciated, voluntary guarding, is not appreciated, involuntary guarding, is not appreciated, no appreciated organomegaly, Indicators: McBurney's point is not tender, Tidwell's sign is negative, Rovsing's sign is negative, Liver: tenderness, is not appreciated. Vital Signs: 10:30 BP 126 / 90; Pulse 104; Resp 16; Temp 98.3; Pulse Ox 99% on R/A; Pain 10/10; hb 11:44 BP 137 / 79; Pulse 90; Resp 18; Temp 98.0(O); Pulse Ox 100% ; kh1 13:02 BP 128 / 74; Pulse 86; Resp 18; Temp 98.0; Pulse Ox 99% on R/A; kh1 MDM: 10:34 Patient medically screened. jr8 12:45 Data reviewed: vital signs, nurses notes, lab test result(s), radiologic studies, CT jr8 scan, ultrasound, and as a result, I will discharge patient. Data interpreted: Pulse oximetry: on room air is 100 %. Interpretation: normal. Counseling: I had a detailed discussion with the patient and/or guardian regarding: the historical points, exam findings, and any diagnostic results supporting the discharge/admit diagnosis, lab results, radiology results, the need for outpatient follow up, an OB/Gyne specialist, to return to the emergency department if symptoms worsen or persist or if there are any questions or concerns that arise at home. ED course: Patient is labs hemodynamically stable. Ultrasound without acute findings and CT without acute findings. The groundglass opacities most likely secondary to Covid but has discussed this with the patient as well and need for follow-up. Most likely the vaginal bleeding is just coincidental and related to her menopause. If she were to have worsening of bleeding or any other change in symptoms to come back for further evaluation. Otherwise needs to follow-up with procurement manager at this time.. 10 10:54 Order name: Basic Metabolic Panel jr8 05/19 10:54 Order name: CBC with Diff; Complete Time: 12:05 jr8 05/19 10:54 Order name: US Transvaginal Study (Probe); Complete Time: 11:57 jr8 05/19 10:54 Order name: CT Abd/Pelvis - Without Contrast; Complete Time: 12:03 jr8 05/19 10:55 Order name: Basic Metabolic Panel; Complete Time: 12:45 EDMS 05/19 10:57 Order name: Urine Dipstick-Ancillary; Complete Time: 11:04 EDMS 05/19 10:54 Order name: IV Saline Lock; Complete Time: 11:38 jr8 05/19 10:54 Order name: Labs collected and sent; Complete Time: 11:38 jr8 05/19 10:54 Order name: Urine Dipstick-Ancillary (obtain specimen); Complete Time: 11:38 jr8 Administered Medications: 11:43 Drug: Ketorolac 15 mg Route: IVP; Site: right antecubital; [facility] Disposition: 15:27 Co-signature as Attending Physician, Garrick Nguyen MD I agree with the assessment and rn plan of care. Attestation: The patient's history, exam findings, diagnostics, and a summary of any interventions or procedures was reviewed in detail with Bjorn WALLACE. Disposition Summary: 05/19/21 12:47 Discharge Ordered Location: Home [facility] Problem: new jr8 Symptoms: have improved jr8 Condition: Stable jr8 Diagnosis - Dysmenorrhea, unspecified jr8 - Abnormal uterine and vaginal bleeding, unspecified jr8 Followup: jr8 - With: Private Physician - When: 5 - 6 days - Reason: Recheck today's complaints, Continuance of care, Re-evaluation by your physician Discharge Instructions: - Discharge Summary Sheet jr8 - Abnormal Uterine Bleeding jr8 - Dysmenorrhea jr8 Forms: - Medication Reconciliation Form jr8 - Thank You Letter jr8 - Antibiotic Education jr8 - Prescription Opioid Use jr8 Signatures: Dispatcher [employer] EDGarrick Ramos MD MD rn Roszak, Josh, PA PA jr8 Sharee Barriga RN RN hb Harris, Kecia [facility]
--- NOTE | 2021-05-19 12:47 | ER ---
Nurse's Notes [facility] Name: Chelsea Sapp Age: 56 yrs Sex: Female : 1965 Arrival Date: 05/19/2021 Time: 10:23 Bed 13 Private MD: Diagnosis: Dysmenorrhea, unspecified;Abnormal uterine and vaginal bleeding, unspecified Presentation: 05/19 10:30 Chief complaint: Vaginal bleeding and severe lower abdominal cramping x 3 days, pain hb with urination today. Seen at [place] ED yesterday, told she has kidney stones. Tested COVID + 05/09. Coronavirus screen: At this time, the client does not indicate any symptoms associated with coronavirus-19. Ebola Screen: No symptoms or risks identified at this time. Initial Sepsis Screen: Does the patient meet any 2 criteria? No. Patient's initial sepsis screen is negative. Does the patient have a suspected source of infection? No. Patient's initial sepsis screen is negative. Risk Assessment: Do you want to hurt yourself or someone else? Patient reports no desire to harm self or others. Onset of symptoms was May 19, 2021. 10:30 Method Of Arrival: Ambulatory hb 10:30 Acuity: CAMERON 3 hb Triage Assessment: 11:46 General: Behavior is calm, cooperative, appropriate for age. 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 - Social history:: Smoking status: Patient denies any tobacco usage or history of. Screenin:43 Abuse screen: Denies threats or abuse. Nutritional screening: No deficits noted. On kh1 Difficulty chewing/swallowing? No. Tuberculosis screening: No symptoms or risk factors identified. Never had TB. Possible symptoms: None Risk factors: None. Fall Risk None identified. No fall in past 12 months (0 pts). No secondary diagnosis (0 pts). IV access (20 points). Ambulatory Aid- None/Bed Rest/Nurse Assist (0 pts). Gait- Normal/Bed Rest/Wheelchair (0 pts). Assessment: 11:45 General: Appears in no apparent distress. uncomfortable. Pain: Complains of pain in [facility] abdomen and left lower quadrant and right lower quadrant Pain radiates to back Pain currently is 10 out of 10 on a pain scale. Quality of pain is described as crampy, Pain began 2-3 days ago. : Urine is blood tinged, Reports vaginal bleeding that is bright red, moderate flow. Vital Signs: 10:30 BP 126 / 90; Pulse 104; Resp 16; Temp 98.3; Pulse Ox 99% on R/A; Pain 10/10; hb 11:44 BP 137 / 79; Pulse 90; Resp 18; Temp 98.0(O); Pulse Ox 100% ; kh1 13:02 BP 128 / 74; Pulse 86; Resp 18; Temp 98.0; Pulse Ox 99% on R/A; kh1 ED Course: 10:23 Patient arrived in ED. ds1 10:33 Triage completed. hb 10:34 Bjorn Vora PA is PHCP. jr8 10:34 Garrick Nguyen MD is Attending Physician. jr8 10:34 Arm band placed on. hb 10:36 Carin Abebe is Primary Nurse. kh1 11:19 CT Abd/Pelvis - Without Contrast In Process Unspecified. EDMS 11:28 US Transvaginal Study (Probe) In Process Unspecified. EDMS 11:38 Basic Metabolic Panel Sent. kh1 11:38 Basic Metabolic Panel Sent. kh1 11:39 CBC with Diff Sent. kh1 11:43 Inserted saline lock: 20 gauge in right antecubital area, using aseptic technique. kh1 Blood collected. 11:46 Patient has correct armband on for positive identification. Placed in gown. Bed in low kh1 position. Call light in reach. Side rails up X 1. Adult w/ patient. cafeteria monitor on. Pulse ox on. NIBP on. 13:02 IV discontinued, intact, bleeding controlled, No redness/swelling at site. Pressure kh1 dressing applied. 13:02 No provider procedures requiring assistance completed. kh1 Administered Medications: 11:43 Drug: Ketorolac 15 mg Route: IVP; Site: right antecubital; kh1 Outcome: 12:47 Discharge ordered by . jr8 13:02 Discharged to home ambulatory, with family. kh1 13:02 Condition: good 13:02 Discharge instructions given to patient, Instructed on discharge instructions, follow up and referral plans. Demonstrated understanding of instructions, follow-up care. 13:04 Patient left the ED. kh1 Signatures: Dispatcher [employer] EDOK Christel Barboza ds1 Bjorn Vora PA PA jr8 Sharee Barriga RN RN hb Harris, Kecia kh1
[2021-05-19 13:16] VITALS: TEMP 98
[2021-05-19 13:20] VITALS: BP 128/74; O2SAT 99
== END 2021-05-19 13:04 | disposition home or self-care (01) ==
LOC: ER 10:21
DX: N94.6 Dysmenorrhea, unspecified (principal)
CPT/HCPCS: 36415; 74176; 76830; 80048; 81003; 85025; 96374; 99284

== ENCOUNTER 2021-08-12 08:44 | Emergency (ER) | payer OTHER ==
--- OUTSIDE RECORDS SUMMARY | 2021-08-12 08:54 | XMS REPORT | Continuity of Care Document ---
:1965 Author Organization [facility] t Address [address] [place] [address] Care Team Providers Name Role Phone Pcp, Does Not Have A Primary Care Physician Hilda Landaverde DO Attending Clinician GENE Attending Clinician Unavailable Doctor Unassigned, Name Attending Clinician Unavailable Flavio LOVE, H Attending Clinician Therapy, Covid Infusion Attending Clinician Unavailable Dario Lantigua MD Attending Clinician Dario LANTIGUA Attending Clinician Unavailable Jackie Galvez Attending Clinician Singer MCCALL Attending Clinician Allen BOSEP, R Attending Clinician Marciano RN Attending Clinician Unavailable Megan WARD C Attending Clinician Guera Key Attending Clinician Res-Colpo/Leep Attending Clinician Unavailable Kenneth LOVE, W Attending Clinician Payers Payer Name Policy Type Policy Number Effective Date Expiration Date Rebecca KNIGHT [id number] 2020 HEALTH 00:00:00 Advance Directives Directive Decision Effective Termination Comments Source Date Date Healthcare Agents on N/A Univ ersity FileNameRelationshipHealthcare of [place] Agent [facility] PartnerHealth Care [phone] (Mobile) Problems Condition Condition Condition Status Onset Resolution Last Treating Co mments Source Name Details Category Date Date Treatment Clinician Date ASCUS with ASCUS with Disease Active Overview : Univers positive positive 03-17 Formattin ity of high risk high risk 00:00: [place] HPV HPV 00 note Medical cervical cervical might be Bran ch different from the original. 03/30/2019 - Colpo- biopsies benign. Needs cotesting 1 year. ASCUS with ASCUS with Disease Active Overview : Univers positive positive 03-17 Formattin ity of high risk high risk 00:00: [place] of this [place] HPV HPV 00 note Medical cervical cervical might be Bran ch different from the original. 03/30/2019 - Colpo- biopsies benign. Needs cotesting 1 year. Trichomona Trichomona Disease Active U nivers l l 03-16 ity of vulvovagin vulvovagin [place] itis itis 00 Medical Branch Contracept Contracept Disease Active 2019-0 U nivers tino tino 03-10 it[place] of management management [place] 00 [place] Well woman Well woman Disease Active 2019- U nivers exam exam 03-10 ity of 00:00: [place] [facility] Contracept Contracept Disease Active 2019-0 U nivers tino tino 03-10 ity of management management [place] Irregular Irregular Disease Active Overview: Univers menses menses 03-10 Formattin ity of 00:00: g of this note Medical might be Branch different from the original. Needs emb History of History of Disease Active 2019-0 U nivers tubal tubal 03-10 ity of ligation ligation 00:00: [place] [facility] No known No known Disease Unive rs active active ity of problems problems [facility] Allergies, Adverse Reactions, Alerts Allergy Allergy Status Severity Reaction(s) Onset Inactive Treating Comm ents Source Name Type Date Date Clinician NO KNOWN Drug Active Univers ALLERGIE Class ity of [facility] [place] [facility] [place] Social History Social Habit Start Date Stop Date Quantity Comments Source Exposure to Yes [facility] SARS-CoV-2 (event) Medica l Branch Tobacco use and 2019-04-26 2019-04-26 Never used [facility] exposure 00:00:00 00:00:00 [facility] Alcohol intake 2019-04-26 2019-04-26 0 /d [facility] 00:00:00 00:00:00 [facility] Sex Ass[birth year] At [birth year] [facility] 00:00:00 00:00:00 [facility] Smoking Status Start Date Stop Date Source Never smoker [facility] Medications Ordered Filled Start Stop Current Ordering Indication Dosage Frequency Signature Comments Components Source Medication Medication Date Date Medication? Clinician (SIG) Name Name ondansetron 2020-08- No 4mg 4 mg, Univ ers (ZOFRAN-ODT 05-17 Oral, ity of ) 16:00: 14:57 ONCE, 1 [place] disintegrat 00 :00 dose, On Medi dez ing tablet Sat Branch 4 mg 05/17/21 at 1100, Routine casirivimab 2020- No [id number] 1200mg 1,200 mg, Univers -imdevimab 05-13 Subcutaneo it y of (REGEN-COV 21:30: 20:17 us, ONCE, [place] (EUA)) 00 :00 1 dose, On Medical injection Tue Branch 1,200 mg 05/13/21 at 1630, Routine ibuprofen 2020- No 600mg 600 mg, Uni vers (IBU) 05-10 Oral, ity of tablet 600 00:45: 23:53 ONCE, 1 [place] mg 00 :00 dose, On Medical Fri Branch 05/09/21 at 1945, THOMAS ibuprofen Yes [id number] 600mg Take 1 [facility] 600 mg 9-24 tablet by ity of tablet 00:00: mouth [place] 00 every 6 Medical (six) Branch hours as needed for Pain (scale 4-6). benzonatate Yes [id number] 100mg Take 1 [facility] 100 mg 9-24 capsule by ity of capsule 00:00: mouth 3 [place] 00 (three) Medical times Branch daily as needed for Cough. ondansetron 2021-0 Yes [id number] 4mg Take 1 Univers (ZOFRAN 9-24 tablet by ity of ODT) 4 mg 00:00: mouth [place] disintegrat 00 every 8 Medic al ing tablet (eight) Branch hours as needed for Nausea and Vomiting (N/V). ibuprofen 1-0 Yes [id number] 600mg Take 1 [facility] 600 mg 9-24 tablet by ity of tablet 00:00: mouth [place] 00 every 6 Medical (six) Branch hours as needed for Pain (scale 4-6). benzonatate 2021-0 Yes [id number] 100mg Take 1 [facility] 100 mg 9-24 capsule by ity of capsule 00:00: mouth 3 [place] 00 (three) Medical times Branch daily as needed for Cough. ondansetron 2020-0 Yes [id number] 4mg Take 1 Univers (ZOFRAN 9-24 tablet by ity of ODT) 4 mg 00:00: mouth [place] disintegrat 00 every 8 Medic al ing tablet (eight) Branch hours as needed for Nausea and Vomiting (N/V). ibuprofen 2020-0 Yes [id number] 600mg Take 1 [facility] 600 mg 9-24 tablet by ity of tablet 00:00: mouth [place] 00 every 6 Medical (six) Branch hours as needed for Pain (scale 4-6). benzonatate 1-0 Yes [id number] 100mg Take 1 Univers 100 mg 9-24 capsule by ity of capsule 00:00: mouth 3 [place] 00 (three) Medical times Branch daily as needed for Cough. ondansetron 1-0 Yes [id number] 4mg Take 1 Univers (ZOFRAN 9-24 tablet by ity of ODT) 4 mg 00:00: mouth [place] disintegrat 00 every 8 Medic al ing tablet (eight) Branch hours as needed for Nausea and Vomiting (N/V). ibuprofen 2021-0 Yes [id number] 600mg Take 1 [facility] 600 mg 9-24 tablet by ity of tablet 00:00: mouth [place] 00 every 6 Medical (six) Branch hours as needed for Pain (scale 4-6). benzonatate 2021-0 Yes [id number] 100mg Take 1 Univers 100 mg 9-24 capsule by ity of capsule 00:00: mouth 3 [place] 00 (three) Medical times Branch daily as needed for Cough. ondansetron 2021-0 Yes [id number] 4mg Take 1 Univers (ZOFRAN 9-24 tablet by ity of ODT) 4 mg 00:00: mouth [place] disintegrat 00 every 8 Medic al ing tablet (eight) Branch hours as needed for Nausea and Vomiting (N/V). ibuprofen 1-0 Yes [id number] 600mg Take 1 Univers 600 mg 9-24 tablet by ity of tablet 00:00: mouth [place] 00 every 6 Medical (six) Branch hours as needed for Pain (scale 4-6). benzonatate 2021-0 Yes [id number] 100mg Take 1 Univers 100 mg 9-24 capsule by ity of capsule 00:00: mouth 3 [place] 00 (three) Medical times Branch daily as needed for Cough. ondansetron 2020-0 Yes [id number] 4mg Take 1 Univers (ZOFRAN 9-24 tablet by ity of ODT) 4 mg 00:00: mouth [place] disintegrat 00 every 8 Medic al ing tablet (eight) Branch hours as needed for Nausea and Vomiting (N/V). ibuprofen 2020-0 Yes [id number] 600mg Take 1 Univers 600 mg 9-24 tablet by ity of tablet 00:00: mouth [place] 00 every 6 Medical (six) Branch hours as needed for Pain (scale 4-6). benzonatate 2021-0 Yes [id number] 100mg Take 1 Univers 100 mg 9-24 capsule by ity of capsule 00:00: mouth 3 [place] 00 (three) Medical times Branch daily as needed for Cough. ondansetron 2021-0 Yes [id number] 4mg Take 1 Univers (ZOFRAN 9-24 tablet by ity of ODT) 4 mg 00:00: mouth [place] disintegrat 00 every 8 Medic al ing tablet (eight) Branch hours as needed for Nausea and Vomiting (N/V). ibuprofen 2021-0 Yes [id number] 600mg Take 1 Univers 600 mg 9-24 tablet by ity of tablet 00:00: mouth [place] 00 every 6 Medical (six) Branch hours as needed for Pain (scale 4-6). benzonatate 2021-0 Yes [id number] 100mg Take 1 Univers 100 mg 9-24 capsule by ity of capsule 00:00: mouth 3 [place] 00 (three) Medical times Branch daily as needed for Cough. ondansetron 0 Yes [id number] 4mg Take 1 Univers (ZOFRAN 9-24 tablet by ity of ODT) 4 mg 00:00: mouth [place] disintegrat 00 every 8 Medic al ing tablet (eight) Branch hours as needed for Nausea and Vomiting (N/V). iopamidol 2020- No [id number] 100mL 100 mL, Univers (ISOVUE 04-02 Intravenou ity o f 370-500 mL) 15:15: 13:53 s, ONCE, 1 [place] injection 00 :00 dose, Wed Medic al 100 mL 04/02/21 at Branch 1015, Routine ondansetron 2020- No 4mg 4 mg, Slow Univers (ZOFRAN 04-02 IV Push, ity of (PF)) 14:30: 13:35 ONCE, 1 [place] injection 4 00 :00 dose, Wed Med ical mg 04/02/21 at Branch 0930, Routine sodium Yes 5mL 5 mL, Univers chloride 04-02 Intravenou ity o f (NS) 13:44: s, PRN, [place] injection 5 59 Starting Medi dez mL Wed Branch 04/02/21 at 0844, Until Discontinu ed, Routine, IV line flushing NaCl 0.9% 2020- No 500mL at 999 Univ ers (NS) bolus 04-02 mL/hr, 500 it y of infusion 13:30: 14:56 mL, IV [place] 500 mL 00 :00 Infusion, Medical ONCE, 1 Branch dose, 04/02/21 at 0830, STAT dicyclomine 2020-0 Yes [id number] 10mg Take 1 Univers 10 mg 8-18 capsule by ity of capsule 00:00: mouth [place] 00 every 8 Medical (eight) Branch hours as needed for Abdominal pain. dicyclomine 2020-0 Yes [id number] 10mg Take 1 Univers 10 mg 8-18 capsule by ity of capsule 00:00: mouth [place] 00 every 8 Medical (eight) Branch hours as needed for Abdominal pain. dicyclomine 2020-0 Yes [id number] 10mg Take 1 Univers 10 mg 8-18 capsule by ity of capsule 00:00: mouth [place] 00 every 8 Medical (eight) Branch hours as needed for Abdominal pain. dicyclomine 2020-0 Yes [id number] 10mg Take 1 Univers 10 mg 8-18 capsule by ity of capsule 00:00: mouth [place] 00 every 8 Medical (eight) Branch hours as needed for Abdominal pain. dicyclomine 2020-0 Yes [id number] 10mg Take 1 Univers 10 mg 8-18 capsule by ity of capsule 00:00: mouth [place] 00 every 8 Medical (eight) Branch hours as needed for Abdominal pain. dicyclomine 2020-0 Yes [id number] 10mg Take 1 Univers 10 mg 8-18 capsule by ity of capsule 00:00: mouth [place] 00 every 8 Medical (eight) Branch hours as needed for Abdominal pain. dicyclomine 2020-0 Yes [id number] 10mg Take 1 Univers 10 mg 8-18 capsule by ity of capsule 00:00: mouth [place] 00 every 8 Medical (eight) Branch hours as needed for Abdominal pain. dicyclomine 2020-0 Yes [id number] 10mg Take 1 Univers 10 mg 8-18 capsule by ity of capsule 00:00: mouth [place] 00 every 8 Medical (eight) Branch hours as needed for Abdominal pain. cephALEXin 2020- No [id number] 500mg Take 1 Univers (KEFLEX) 8-18 -26 capsule by ity of 500 mg 00:00: 04:59 mouth 3 [place] capsule 00 :00 (three) Medical times Branch daily for 7 days. methocarbam Yes 500mg 500 mg, Un odell oL 12-14 Oral, QID, ity of (ROBAXIN) 13:00: First dose [place] tablet 500 00 on Sat Medical mg 12/14/20 at Branch 0800, Until Discontinu ed, Routine traMADoL 2020- No 50mg 50 mg, Univer s (ULTRAM) 12-14 Oral, ity of tablet 50 04:00: 03:02 ONCE, 1 [place] mg 00 :00 dose, Fri Medical 12/13/20 at Branch 2300, THOMAS ketorolac 2020-2020- No 60mg 60 mg, Unive rs (TORADOL) 12-14 Intramuscu ity of injection 04:00: 03:05 lar, ONCE, [place] 60 mg 00 :00 1 dose, Medical Fri Branch 12/13/20 at 2300, THOMAS
Fa [facility] member approving Restricted medication : CHAN JURADO methocarbam 2020-0 Yes [id number] 500mg Take 1 Univers oL 4-30 tablet by ity of (ROBAXIN) 00:00: mouth 4 [place] 500 mg 00 (four) Medical tablet times Branch daily as needed for Pain (scale 7-10). Diclofenac 2020-0 Yes [id number] Apply to Univers Sodium 4-30 area(s) 2 ity of (VOLTAREN) 00:00: (two) [place] 1 % gel 00 times Medical daily. Branch traMADoL 50 2020-0 Yes [id number] 50mg Take 1 Univ ers mg tablet 4-30 tablet by ity o f 00:00: mouth [place] 00 every 6 Medical (six) Branch hours as needed for Pain (scale 7-10). Indication s: acute pain methocarbam 2020-0 Yes [id number] 500mg Take 1 Univers oL 4-30 tablet by ity of (ROBAXIN) 00:00: mouth 4 [place] 500 mg 00 (four) Medical tablet times Branch daily as needed for Pain (scale 7-10). Diclofenac 2020-0 Yes [id number] Apply to Univers Sodium 4-30 area(s) 2 ity of (VOLTAREN) 00:00: (two) [place] 1 % gel 00 times Medical daily. Branch traMADoL 50 2020-0 Yes [id number] 50mg Take 1 Univ ers mg tablet 4-30 tablet by ity o f 00:00: mouth [place] 00 every 6 Medical (six) Branch hours as needed for Pain (scale 7-10). Indication s: acute pain methocarbam 2020-0 Yes [id number] 500mg Take 1 Univers oL 4-30 tablet by ity of (ROBAXIN) 00:00: mouth 4 [place] 500 mg 00 (four) Medical tablet times Branch daily as needed for Pain (scale 7-10). Diclofenac 2020-0 Yes [id number] Apply to Univers Sodium 4-30 area(s) 2 ity of (VOLTAREN) 00:00: (two) [place] 1 % gel 00 times Medical daily. Branch traMADoL 50 2020-0 Yes [id number] 50mg Take 1 Univ ers mg tablet 4-30 tablet by ity o f 00:00: mouth [place] 00 every 6 Medical (six) Branch hours as needed for Pain (scale 7-10). Indication s: acute pain methocarbam 2021-0 Yes [id number] 500mg Take 1 Univers oL 4-30 tablet by ity of (ROBAXIN) 00:00: mouth 4 [place] 500 mg 00 (four) Medical tablet times Branch daily as needed for Pain (scale 7-10). Diclofenac 202-0 Yes [id number] Apply to Univers Sodium 4-30 area(s) 2 ity of (VOLTAREN) 00:00: (two) [place] 1 % gel 00 times Medical daily. Branch traMADoL 50 2020-0 Yes [id number] 50mg Take 1 Univ ers mg tablet 4-30 tablet by ity o f 00:00: mouth [place] 00 every 6 Medical (six) Branch hours as needed for Pain (scale 7-10). Indication s: acute pain methocarbam 2020-0 Yes [id number] 500mg Take 1 Univers oL 4-30 tablet by ity of (ROBAXIN) 00:00: mouth 4 [place] 500 mg 00 (four) Medical tablet times Branch daily as needed for Pain (scale 7-10). Diclofenac 2020-0 Yes [id number] Apply to Univers Sodium 4-30 area(s) 2 ity of (VOLTAREN) 00:00: (two) [place] 1 % gel 00 times Medical daily. Branch traMADoL 50 2020-0 Yes [id number] 50mg Take 1 Univ ers mg tablet 4-30 tablet by ity o f 00:00: mouth [place] 00 every 6 Medical (six) Branch hours as needed for Pain (scale 7-10). Indication s: acute pain methocarbam 2021-0 Yes [id number] 500mg Take 1 Univers oL 4-30 tablet by ity of (ROBAXIN) 00:00: mouth 4 [place] 500 mg 00 (four) Medical tablet times Branch daily as needed for Pain (scale 7-10). Diclofenac 2021-0 Yes [id number] Apply to Univers Sodium 4-30 area(s) 2 ity of (VOLTAREN) 00:00: (two) [place] 1 % gel 00 times Medical daily. Branch traMADoL 50 2020-0 Yes [id number] 50mg Take 1 Univ ers mg tablet 4-30 tablet by ity o f 00:00: mouth [place] 00 every 6 Medical (six) Branch hours as needed for Pain (scale 7-10). Indication s: acute pain methocarbam 2021-0 Yes [id number] 500mg Take 1 Univers oL 4-30 tablet by ity of (ROBAXIN) 00:00: mouth 4 [place] 500 mg 00 (four) Medical tablet times Branch daily as needed for Pain (scale 7-10). Diclofenac 1-0 Yes [id number] Apply to Univers Sodium 4-30 area(s) 2 ity of (VOLTAREN) 00:00: (two) [place] 1 % gel 00 times Medical daily. Branch traMADoL 50 2020-0 Yes [id number] 50mg Take 1 Univ ers mg tablet 4-30 tablet by ity o f 00:00: mouth [place] 00 every 6 Medical (six) Branch hours as needed for Pain (scale 7-10). Indication s: acute pain methocarbam 2020-0 Yes [id number] 500mg Take 1 Univers oL 4-30 tablet by ity of (ROBAXIN) 00:00: mouth 4 [place] 500 mg 00 (four) Medical tablet times Branch daily as needed for Pain (scale 7-10). Diclofenac 2020-0 Yes [id number] Apply to Univers Sodium 4-30 area(s) 2 ity of (VOLTAREN) 00:00: (two) [place] 1 % gel 00 times Medical daily. Branch traMADoL 50 2020-0 Yes [id number] 50mg Take 1 Univ ers mg tablet 4-30 tablet by ity o f 00:00: mouth [place] 00 every 6 Medical (six) Branch hours as needed for Pain (scale 7-10). Indication s: acute pain methocarbam 1-0 Yes [id number] 500mg Take 1 Univers oL 4-30 tablet by ity of (ROBAXIN) 00:00: mouth 4 [place] 500 mg 00 (four) Medical tablet times Branch daily as needed for Pain (scale 7-10). Diclofenac 2021-0 Yes [id number] Apply to Univers Sodium 4-30 area(s) 2 ity of (VOLTAREN) 00:00: (two) [place] 1 % gel 00 times Medical daily. Branch traMADoL 50 2020-0 Yes [id number] 50mg Take 1 Univ ers mg tablet 4-30 tablet by ity o f 00:00: mouth [place] 00 every 6 Medical (six) Branch hours as needed for Pain (scale 7-10). Indication s: acute pain ketorolac No 30mg 30 mg, Unive rs (TORADOL) 12-05 Slow IV ity of injection 18:45: 17:44 Push, [place] 30 mg 00 :00 ONCE, 1 Medical dose, [facility] 12/05/20 at 1345, THOMAS
Fa culty member approving Restricted medication : Julia CLINTON nitroglycer 2020- No .5[in_u 0.5 Inch, Univers in (NITROL) 12-05 s] Transderma i ty of 2 % 16:45: 15:51 l (Apply [place] ointment 00 :00 To Skin), Medica l 0.5 Inch ONCE, 1 Branch dose, [facility] 12/05/20 at 1145, THOMAS aspirin No 324mg 324 mg, Unive rs chewable 12-05 Oral, ity of tablet 324 16:45: 15:51 ONCE, 1 [place] mg 00 :00 dose, [facility] Medical 12/05/20 at Branch 1145, Routine multivitami 2019- No [id number] 1{tbl} Take 1 Univers n tablet 8-15 08-15 tablet by ity o f 00:00: 04:59 mouth [place] 00 :00 daily. [facility] Branch multivitami 2020- No [id number] 1{tbl} Take 1 Univers n tablet 8-15 08-15 tablet by ity o f 00:00: 04:59 mouth [place] 00 :00 daily. [facility] Branch multivitami 2020- No [id number] 1{tbl} Take 1 Univers n tablet 8-15 08-15 tablet by ity o f 00:00: 04:59 mouth [place] 00 :00 daily. [facility] Branch multivitami 2020- No [id number] 1{tbl} Take 1 Univers n tablet 8-15 08-15 tablet by ity o f 00:00: 04:59 mouth [place] 00 :00 daily. [facility] Branch multivitami 2019- No [id number] 1{tbl} Take 1 Univers n tablet 8-15 08-15 tablet by ity o f 00:00: 04:59 mouth [place] 00 :00 daily. Medical Branch multivitami 2020- No [id number] 1{tbl} Take 1 Univers n tablet 8-15 08-15 tablet by ity o f 00:00: 04:59 mouth [place] 00 :00 daily. [facility] Branch multivitami 2020- No [id number] 1{tbl} Take 1 Univers n tablet 8-15 08-15 tablet by ity o f 00:00: 04:59 mouth [place] 00 :00 daily. [facility] Branch multivitami 2020- No [id number] 1{tbl} Take 1 Univers n tablet 8-15 08-15 tablet by ity o f 00:00: 04:59 mouth [place] 00 :00 daily. [facility] Branch ibuprofen 2019- No [id number] 600mg Take 3 Univers 200 mg 8-15 -19 tablets by ity of tablet 00:00: 04:59 mouth [place] 00 :00 every 6 Medical (six) Branch hours as needed for Pain (scale 4-6) for up to 3 days. ibuprofen 2019- No [id number] 600mg Take 3 Univers 200 mg 8-15 08-19 tablets by ity of tablet 00:00: 04:59 mouth [place] 00 :00 every 6 Medical (six) Branch hours as needed for Pain (scale 4-6) for up to 3 days. metroNIDAZO 2018- 2019- No [id number] 2000mg Take 4 Univers LE 500 mg -08 23-02 tablets by ity of tablet 00:00: 04:59 mouth [place] 00 :00 now for 1 Medical dose. Branch metroNIDAZO 2019- No [id number] 2000mg Take 4 Univers LE 500 mg 8- 08-02 tablets by ity of tablet 00:00: 04:59 mouth [place] 00 :00 now for 1 Medical dose. Branch norethindro Yes [id number] 1{tbl} Take 1 Univers ne 0.35 mg 7-26 tablet by ity of tablet 00:00: mouth [place] 00 daily. Medical Branch norethindro Yes [id number] 1{tbl} Take 1 Univers ne 0.35 mg 7-26 tablet by ity of tablet 00:00: mouth [place] 00 daily. [facility] Yes [id number] 1{tbl} Take 1 Univers ne 0.35 mg 7-26 tablet by ity of tablet 00:00: mouth [place] 00 daily. [facility] Yes [id number] 1{tbl} Take 1 Univers ne 0.35 mg 7-26 tablet by ity of tablet 00:00: mouth [place] 00 daily. [facility] Yes [id number] 1{tbl} Take 1 Univers ne 0.35 mg 7-26 tablet by ity of tablet 00:00: mouth [place] 00 daily. [facility] Yes [id number] 1{tbl} Take 1 Univers ne 0.35 mg 7-26 tablet by ity of tablet 00:00: mouth [place] 00 daily. [facility] Yes [id number] 1{tbl} Take 1 Univers ne 0.35 mg 7-26 tablet by ity of tablet 00:00: mouth [place] 00 daily. [facility] Yes [id number] 1{tbl} Take 1 Univers ne 0.35 mg 7-26 tablet by ity of tablet 00:00: mouth [place] 00 daily. [facility] Yes [id number] 1{tbl} Take 1 Univers ne 0.35 mg 7-26 tablet by ity of tablet 00:00: mouth [place] 00 daily. [facility] Yes [id number] 1{tbl} Take 1 Univers ne 0.35 mg 7-26 tablet by ity of tablet 00:00: mouth [place] 00 daily. [facility] Yes [id number] 1{tbl} Take 1 Univers ne 0.35 mg 7-26 tablet by ity of tablet 00:00: mouth [place] 00 daily. [facility] Yes [id number] 1{tbl} Take 1 Univers ne 0.35 mg 7-26 tablet by ity of tablet 00:00: mouth [place] 00 daily. [facility] Yes [id number] 1{tbl} Take 1 Univers ne 0.35 mg 7-26 tablet by ity of tablet 00:00: mouth [place] 00 daily. [facility] Yes [id number] 1{tbl} Take 1 Univers ne 0.35 mg 7-26 tablet by ity of tablet 00:00: mouth [place] 00 daily. [facility] Yes [id number] 1{tbl} Take 1 Univers ne 0.35 mg 7-26 tablet by ity of tablet 00:00: mouth [place] 00 daily. [facility] Yes [id number] 1{tbl} Take 1 Univers ne 0.35 mg 7-26 tablet by ity of tablet 00:00: mouth [place] 00 daily. [facility] Yes [id number] 1{tbl} Take 1 Univers ne 0.35 mg 7-26 tablet by ity of tablet 00:00: mouth [place] 00 daily. [facility] Yes [id number] 1{tbl} Take 1 Univers ne 0.35 mg 7-26 tablet by ity of tablet 00:00: mouth [place] 00 daily. [facility] Yes [id number] 1{tbl} Take 1 Univers ne 0.35 mg 7-26 tablet by ity of tablet 00:00: mouth [place] 00 daily. [facility] Yes [id number] 1{tbl} Take 1 Univers ne 0.35 mg 7-26 tablet by ity of tablet 00:00: mouth [place] 00 daily. [facility] Yes [id number] 1{tbl} Take 1 Univers ne 0.35 mg 7-26 tablet by ity of tablet 00:00: mouth [place] 00 daily. [facility] Yes [id number] 1{tbl} Take 1 Univers ne 0.35 mg 7-26 tablet by ity of tablet 00:00: mouth [place] 00 daily. [facility] Yes [id number] 1{tbl} Take 1 Univers ne 0.35 mg 7-26 tablet by ity of tablet 00:00: mouth [place] 00 daily. [facility] Yes [id number] 1{tbl} Take 1 Univers ne 0.35 mg 7-26 tablet by ity of tablet 00:00: mouth [place] 00 daily. [facility] Yes [id number] 1{tbl} Take 1 Univers ne 0.35 mg 7-26 tablet by ity of tablet 00:00: mouth [place] 00 daily. [facility] Yes [id number] 1{tbl} Take 1 Univers ne 0.35 mg 7-26 tablet by ity of tablet 00:00: mouth [place] 00 daily. [facility] Yes [id number] 1{tbl} Take 1 Univers ne 0.35 mg 7-26 tablet by ity of tablet 00:00: mouth [place] 00 daily. [facility] Yes [id number] 1{tbl} Take 1 Univers ne 0.35 mg 7-26 tablet by ity of tablet 00:00: mouth [place] 00 daily. [facility] [id number] 1{tbl} Take 1 Univers ne 0.35 mg 7-26 tablet by ity of tablet 00:00: mouth [place] 00 daily. [facility] Yes [id number] 1{tbl} Take 1 Univers ne 0.35 mg 7-26 tablet by ity of tablet 00:00: mouth [place] 00 daily. [facility] Branch levoFLOXaci 2018-0 Yes 500mg Take 1 Uni vers n 500 mg 7-27 tablet by ity of tablet 00:00: mouth [place] 00 every 24 Medical (twenty- Branch ur) hours. levoFLOXaci 2018-0 Yes 500mg Take 1 Uni vers n 500 mg 7-27 tablet by ity of tablet 00:00: mouth [place] 00 every 24 [facility] hours. levoFLOXaci 2018-0 Yes 500mg Take 1 Uni vers n 500 mg 7-27 tablet by ity of tablet 00:00: mouth [place] 00 every 24 Medical (twenty- Branch ur) hours. levoFLOXaci 2018-0 Yes 500mg Take 1 Uni vers n 500 mg 7-27 tablet by ity of tablet 00:00: mouth [place] 00 every 24 Medical (twenty- Branch ur) hours. levoFLOXaci 2018-0 Yes 500mg Take 1 Uni vers n 500 mg 7-27 tablet by ity of tablet 00:00: mouth [place] 00 every 24 Medical (twenty- Branch ur) hours. levoFLOXaci 2018-0 Yes 500mg Take 1 Uni vers n 500 mg 7-27 tablet by ity of tablet 00:00: mouth [place] 00 every 24 Medical (twenty-fo Branch ur) hours. levoFLOXaci 2018-0 Yes 500mg Take 1 Uni vers n 500 mg 7-27 tablet by ity of tablet 00:00: mouth [place] 00 every 24 Medical (twenty-fo Branch ur) hours. levoFLOXaci 2018-0 Yes 500mg Take 1 Uni vers n 500 mg 7-27 tablet by ity of tablet 00:00: mouth [place] 00 every 24 Medical (twenty-fo Branch ur) hours. levoFLOXaci 2018-0 Yes 500mg Take 1 Uni vers n 500 mg 7-27 tablet by ity of tablet 00:00: mouth [place] 00 every 24 Medical (twenty-fo Branch ur) hours. levoFLOXaci 2018-0 Yes 500mg Take 1 Uni vers n 500 mg 7-27 tablet by ity of tablet 00:00: mouth [place] 00 every 24 Medical (twenty-fo Branch ur) hours. levoFLOXaci 2018-0 Yes 500mg Take 1 Uni vers n 500 mg 7-27 tablet by ity of tablet 00:00: mouth [place] 00 every 24 Medical (twenty-fo Branch ur) hours. levoFLOXaci 2018-0 Yes 500mg Take 1 Uni vers n 500 mg 7-27 tablet by ity of tablet 00:00: mouth [place] 00 every 24 Medical (twenty-fo Branch ur) hours. levoFLOXaci 2018-0 Yes 500mg Take 1 Uni vers n 500 mg 7-27 tablet by ity of tablet 00:00: mouth [place] 00 every 24 Medical (twenty-fo Branch ur) hours. levoFLOXaci 2018-0 Yes 500mg Take 1 Uni vers n 500 mg 7-27 tablet by ity of tablet 00:00: mouth [place] 00 every 24 Medical (twenty-fo Branch ur) hours. levoFLOXaci 2018-0 Yes 500mg Take 1 Uni vers n 500 mg 7-27 tablet by ity of tablet 00:00: mouth [place] 00 every 24 Medical (twenty-fo Branch ur) hours. levoFLOXaci 2018-0 Yes 500mg Take 1 Uni vers n 500 mg 7-27 tablet by ity of tablet 00:00: mouth [place] 00 every 24 Medical (twenty-fo Branch ur) hours. levoFLOXaci 2018-0 Yes 500mg Take 1 Uni vers n 500 mg 7-27 tablet by ity of tablet 00:00: mouth [place] 00 every 24 Medical (twenty-fo Branch ur) hours. levoFLOXaci 2018-0 Yes 500mg Take 1 Uni vers n 500 mg 7-27 tablet by ity of tablet 00:00: mouth [place] 00 every 24 Medical (twenty-fo Branch ur) hours. levoFLOXaci 2018-0 Yes 500mg Take 1 Uni vers n 500 mg 7-27 tablet by ity of tablet 00:00: mouth [place] 00 every 24 Medical (twenty-fo Branch ur) hours. levoFLOXaci 2018-0 Yes 500mg Take 1 Uni vers n 500 mg 7-27 tablet by ity of tablet 00:00: mouth [place] 00 every 24 Medical (twenty-fo Branch ur) hours. levoFLOXaci 2018-0 Yes 500mg Take 1 Uni vers n 500 mg 7-27 tablet by ity of tablet 00:00: mouth [place] 00 every 24 Medical (twenty-fo Branch ur) hours. levoFLOXaci 2018-0 Yes 500mg Take 1 Uni vers n 500 mg 7-27 tablet by ity of tablet 00:00: mouth [place] 00 every 24 Medical (twenty-fo Branch ur) hours. levoFLOXaci 2018-0 Yes 500mg Take 1 Uni vers n 500 mg 7-27 tablet by ity of tablet 00:00: mouth [place] 00 every 24 Medical (twenty-fo Branch ur) hours. levoFLOXaci 2018-0 Yes 500mg Take 1 Uni vers n 500 mg 7-27 tablet by ity of tablet 00:00: mouth [place] 00 every 24 Medical (twenty-fo Branch ur) hours. levoFLOXaci 2018-0 Yes 500mg Take 1 Uni vers n 500 mg 7-27 tablet by ity of tablet 00:00: mouth [place] 00 every 24 Medical (twenty-fo Branch ur) hours. levoFLOXaci 2018-0 Yes 500mg Take 1 Uni vers n 500 mg 7-27 tablet by ity of tablet 00:00: mouth [place] 00 every 24 Medical (twenty-fo Branch ur) hours. levoFLOXaci 2018-0 Yes 500mg Take 1 Uni vers n 500 mg 7-27 tablet by ity of tablet 00:00: mouth [place] 00 every 24 Medical (twenty-fo Branch ur) hours. levoFLOXaci 2018-0 Yes 500mg Take 1 Uni vers n 500 mg 7-27 tablet by ity of tablet 00:00: mouth [place] 00 every 24 Medical (twenty-fo Branch ur) hours. levoFLOXaci 2018-0 Yes 500mg Take 1 Uni vers n 500 mg 7-27 tablet by ity of tablet 00:00: mouth [place] 00 every 24 Medical (twenty-fo Branch ur) hours. levoFLOXaci 2018-0 Yes 500mg Take 1 Uni vers n 500 mg 7-27 tablet by ity of tablet 00:00: mouth [place] 00 every 24 Medical (twenty-fo Branch ur) hours. levoFLOXaci 2018-0 Yes 500mg Take 1 Uni vers n 500 mg 7-27 tablet by ity of tablet 00:00: mouth [place] 00 every 24 Medical (twenty-fo Branch ur) hours. traMADOL 50 2018-0 Yes 50mg Take 1 Univ ers mg tablet 6-08 tablet by ity o f 00:00: mouth [place] 00 every 6 Medical (six) Branch hours as needed (PAIN). traMADOL 50 2018-0 Yes 50mg Take 1 Univ ers mg tablet 6-08 tablet by ity o f 00:00: mouth [place] 00 every 6 Medical (six) Branch hours as needed (PAIN). traMADOL 50 2018-0 Yes 50mg Take 1 Univ ers mg tablet 6-08 tablet by ity o f 00:00: mouth [place] 00 every 6 Medical (six) Branch hours as needed (PAIN). traMADOL 50 2018-0 Yes 50mg Take 1 Univ ers mg tablet 6-08 tablet by ity o f 00:00: mouth [place] 00 every 6 Medical (six) Branch hours as needed (PAIN). traMADOL 50 2018-0 Yes 50mg Take 1 Univ ers mg tablet 6-08 tablet by ity o f 00:00: mouth [place] 00 every 6 Medical (six) Branch hours as needed (PAIN). traMADOL 50 2018-0 Yes 50mg Take 1 Univ ers mg tablet 6-08 tablet by ity o f 00:00: mouth [place] 00 every 6 Medical (six) Branch hours as needed (PAIN). traMADOL 50 2018-0 Yes 50mg Take 1 Univ ers mg tablet 6-08 tablet by ity o f 00:00: mouth [place] 00 every 6 Medical (six) Branch hours as needed (PAIN). traMADOL 50 2018-0 Yes 50mg Take 1 Univ ers mg tablet 6-08 tablet by ity o f 00:00: mouth [place] 00 every 6 Medical (six) Branch hours as needed (PAIN). traMADOL 50 2018-0 Yes 50mg Take 1 Univ ers mg tablet 6-08 tablet by ity o f 00:00: mouth [place] 00 every 6 Medical (six) Branch hours as needed (PAIN). traMADOL 50 2018-0 Yes 50mg Take 1 Univ ers mg tablet 6-08 tablet by ity o f 00:00: mouth [place] 00 every 6 Medical (six) Branch hours as needed (PAIN). traMADOL 50 2018-0 Yes 50mg Take 1 Univ ers mg tablet 6-08 tablet by ity o f 00:00: mouth [place] 00 every 6 Medical (six) Branch hours as needed (PAIN). traMADOL 50 2018-0 Yes 50mg Take 1 Univ ers mg tablet 6-08 tablet by ity o f 00:00: mouth [place] 00 every 6 Medical (six) Branch hours as needed (PAIN). traMADOL 50 2018-0 Yes 50mg Take 1 Univ ers mg tablet 6-08 tablet by ity o f 00:00: mouth [place] 00 every 6 Medical (six) Branch hours as needed (PAIN). traMADOL 50 2018-0 Yes 50mg Take 1 Univ ers mg tablet 6-08 tablet by ity o f 00:00: mouth [place] 00 every 6 Medical (six) Branch hours as needed (PAIN). traMADOL 50 2018-0 Yes 50mg Take 1 Univ ers mg tablet 6-08 tablet by ity o f 00:00: mouth [place] 00 every 6 Medical (six) Branch hours as needed (PAIN). traMADOL 50 2018-0 Yes 50mg Take 1 Univ ers mg tablet 6-08 tablet by ity o f 00:00: mouth [place] 00 every 6 Medical (six) Branch hours as needed (PAIN). traMADOL 50 2018-0 Yes 50mg Take 1 Univ ers mg tablet 6-08 tablet by ity o f 00:00: mouth [place] 00 every 6 Medical (six) Branch hours as needed (PAIN). traMADOL 50 2018-0 Yes 50mg Take 1 Univ ers mg tablet 6-08 tablet by ity o f 00:00: mouth [place] 00 every 6 Medical (six) Branch hours as needed (PAIN). traMADOL 50 2018-0 Yes 50mg Take 1 Univ ers mg tablet 6-08 tablet by ity o f 00:00: mouth [place] 00 every 6 Medical (six) Branch hours as needed (PAIN). traMADOL 50 2018-0 Yes 50mg Take 1 Univ ers mg tablet 6-08 tablet by ity o f 00:00: mouth [place] 00 every 6 Medical (six) Branch hours as needed (PAIN). traMADOL 50 0 Yes 50mg Take 1 Univ ers mg tablet 6-08 tablet by ity o f 00:00: mouth [place] 00 every 6 Medical (six) Branch hours as needed (PAIN). traMADOL 50 0 Yes 50mg Take 1 Univ ers mg tablet 6-08 tablet by ity o f 00:00: mouth [place] 00 every 6 Medical (six) Branch hours as needed (PAIN). traMADOL 50 2017-0 2020- No 50mg Take 1 Uni vers mg tablet 6-08 04-30 tablet by ity of 00:00: 00:00 mouth [place] 00 :00 every 6 Medical (six) Branch hours as needed (PAIN). Immunizations Ordered Filled Immunization Date Status Comments [facility] e Immunization Name Name Influenza Virus 2016-06-05 Completed Universit y of Vaccine [facility] ID 00:00:00 [place] [facility] 18-64 Y[facility] Branch Influenza Virus 2016-06-05 Completed Universit y of Vaccine [facility] ID 00:00:00 [place] [facility] 18-64 YRS Branch Influenza Virus 2016-06-05 Completed Universit y of Vaccine [facility] ID 00:00:00 [place] [facility] 18-64 YRS Branch Influenza Virus 2016-06-05 Completed Universit y of Vaccine [facility] ID 00:00:00 [place] [facility] 18-64 YRS Branch Influenza Virus 2016-06-05 Completed Universit y of Vaccine [facility] ID 00:00:00 [place] [facility] 18-64 YRS Branch Influenza Virus 2016-06-05 Completed Universit y of Vaccine [facility] ID 00:00:00 [place] [facility] 18-64 YRS Branch Influenza Virus 2016-06-05 Completed Universit y of Vaccine [facility] ID 00:00:00 [place] [facility] 18-64 YRS Branch Influenza Virus 2016-06-05 Completed Universit y of Vaccine [facility] ID 00:00:00 [place] [facility] 18-64 YRS Branch Influenza Virus 2016-06-05 Completed Universit y of Vaccine [facility] ID 00:00:00 [place] [facility] 18-64 YRS Branch Influenza Virus 2016-06-05 Completed Universit y of Vaccine [facility] ID 00:00:00 [place] [facility] 18-64 YRS Branch Influenza Virus 2016-06-05 Completed Universit y of Vaccine [facility] ID 00:00:00 [place] [facility] 18-64 YRS Branch Influenza Virus 2016-06-05 Completed Universit y of Vaccine [facility] ID 00:00:00 [facility] ical 18-64 YRS Branch Influenza Virus 2016-06-05 Completed Universit y of Vaccine [facility] ID 00:00:00 [place] [facility] 18-64 YRS Branch Influenza Virus 2016-06-05 Completed Universit y of Vaccine Quad ID 00:00:00 [facility] ical 18-64 YRS Branch Influenza Virus 2016-06-05 Completed Universit y of Vaccine [facility] ID 00:00:00 [facility] ical 18-64 YRS Branch Influenza Virus 2016-06-05 Completed Universit y of Vaccine [facility] ID 00:00:00 [facility] ical 18-64 YRS Branch Influenza Virus 2016-06-05 Completed Universit y of Vaccine [facility] ID 00:00:00 [facility] ical 18-64 YRS Branch Influenza Virus 2016-06-05 Completed Universit y of Vaccine [facility] ID 00:00:00 [facility] ical 18-64 YRS Branch Influenza Virus 2016-06-05 Completed Universit y of Vaccine [facility] ID 00:00:00 [facility] ical 18-64 YRS Branch Influenza Virus 2016-06-05 Completed Universit y of Vaccine [facility] ID 00:00:00 [facility] ical 18-64 YRS Branch Influenza Virus 2016-06-05 Completed Universit y of Vaccine [facility] ID 00:00:00 [facility] ical 18-64 YRS Branch Influenza Virus 2016-06-05 Completed Universit y of Vaccine [facility] ID 00:00:00 [facility] ical 18-64 YRS Branch Influenza Virus 2016-06-05 Completed Universit y of Vaccine [facility] ID 00:00:00 [facility] ical 18-64 YRS Branch Influenza Virus 2016-06-05 Completed Universit y of Vaccine [facility] ID 00:00:00 [facility] ical 18-64 YRS Branch Influenza Virus 2016-06-05 Completed Universit y of Vaccine [facility] ID 00:00:00 [place] [facility] 18-64 YRS Branch Influenza Virus 2016-06-05 Completed Universit y of Vaccine [facility] ID 00:00:00 [place] [facility] 18-64 YRS Branch Influenza Virus 2016-06-05 Completed Universit y of Vaccine [facility] ID 00:00:00 [place] [facility] 18-64 YRS Branch Influenza Virus 2016-06-05 Completed Universit y of Vaccine [facility] ID 00:00:00 [facility] ical 18-64 YRS Branch Influenza Virus 2016-06-05 Completed Universit y of Vaccine [facility] ID 00:00:00 [facility] ical 18-64 YRS Branch Influenza Virus 2016-06-05 Completed Universit y of Vaccine [facility] ID 00:00:00 [place] [facility] 18-64 YRS Branch Influenza Virus 2016-06-05 Completed Universit y of Vaccine [facility] ID 00:00:00 [facility] ical 18-64 YRS Branch Vital Signs Vital Name Observation Time Observation Value Comments Source Systolic blood 2021-05-17 14:44:00 153 mm[Hg] Univer sity of pressure [facility] Diastolic blood 2021-05-17 14:44:00 106 mm[Hg] Unive rsity of pressure [facility] Heart rate 2021-05-17 14:44:00 110 /min Universi ty of [facility] Body temperature 2021-05-17 14:44:00 36.83 Jessica [facility] ersity of [facility] Respiratory rate 2021-05-17 14:44:00 18 /min Univ ersity of [facility] Body weight 2021-05-17 14:44:00 54.432 kg Universi ty of [place] [facility] [place] BMI 2021-05-17 14:44:00 21.95 kg/m2 Universi ty of [facility] Oxygen saturation in 2021-05-17 14:44:00 99 /min University of Arterial blood by [place] C[facility] [employer] Pulse oximetry Branch Systolic blood 2021-05-13 21:05:00 132 mm[Hg] Univer sity of pressure [facility] Diastolic blood 2021-05-13 21:05:00 89 mm[Hg] Unive rsity of pressure [facility] Heart rate 2021-05-13 21:05:00 113 /min Universi ty of [facility] Body temperature 2021-05-13 21:05:00 37.28 Jessica Univ ersity of [facility] Respiratory rate 2021-05-13 21:05:00 22 /min Univ ersity of [facility] Oxygen saturation in 2021-05-13 21:05:00 97 /min University of Arterial blood by [place] [facility] [employer] P[facility] oximetry Branch Body height 2021-05-13 20:16:00 157.5 cm Universi ty of [place] [facility] [place] Body weight 2021-05-13 20:16:00 54.432 kg Universi ty of [place] [facility] BMI 2021-05-13 20:16:00 21.95 kg/m2 Universi ty of [place] [facility] Systolic blood 2021-05-09 23:58:00 135 mm[Hg] Univer sity of pressure [place] [facility] Diastolic blood 2021-05-09 23:58:00 91 mm[Hg] Unive rsity of pressure [place] [facility] Heart rate 2021-05-09 23:58:00 103 /min Universi ty of [place] [facility] Body temperature 2021-05-09 23:58:00 37.5 Jessica Univ ersity of [place] [facility] Respiratory rate 2021-05-09 23:58:00 19 /min Univ ersity of [place] [facility] Oxygen saturation in 2021-05-09 23:58:00 99 /min University of Arterial blood by [employer] Pulse oximetry Branch Body weight 2021-05-09 22:45:00 56.7 kg Universi ty of [place] [facility] BMI 2021-05-09 22:45:00 22.86 kg/m2 Universi ty of [place] [facility] Systolic blood 2021-04-02 13:22:00 137 mm[Hg] Univer sity of pressure [place] [facility] Diastolic blood 2021-04-02 13:22:00 91 mm[Hg] Unive rsity of pressure [place] [facility] Heart rate 2021-04-02 13:22:00 102 /min Universi ty of [place] [facility] Body temperature 2021-04-02 13:22:00 36.83 Jessica Univ ersity of [place] [facility] Respiratory rate 2021-04-02 13:22:00 18 /min Univ ersity of [place] [facility] Body weight 2021-04-02 13:22:00 56.7 kg Universi ty of [place] [facility] BMI 2021-04-02 13:22:00 22.86 kg/m2 Universi ty of [place] [facility] Oxygen saturation in 2021-04-02 13:22:00 100 /min University of Arterial blood by [employer] Pulse oximetry Branch Systolic blood 2020-12-14 04:14:00 125 mm[Hg] Univer sity of pressure [place] [facility] Diastolic blood 2020-12-14 04:14:00 95 mm[Hg] Unive rsity of pressure [place] [facility] Heart rate 2020-12-14 04:14:00 93 /min Universi ty of [place] [facility] Respiratory rate 2020-12-14 04:14:00 16 /min Univ ersity of [place] [facility] Oxygen saturation in 2020-12-14 04:14:00 99 /min University of Arterial blood by [facility] dez Pulse oximetry Branch Body temperature 2020-12-14 02:38:00 37 Jessica Univ ersity of [place] [facility] Body height 2020-12-14 02:38:00 157.5 cm Universi ty of [place] [facility] Body weight 2020-12-14 02:38:00 56.7 kg Universi ty of [place] [facility] BMI 2020-12-14 02:38:00 22.86 kg/m2 Universi ty of [place] [facility] Systolic blood 2020-12-05 18:00:00 136 mm[Hg] Univer sity of pressure [place] [facility] Diastolic blood 2020-12-05 18:00:00 94 mm[Hg] Unive rsity of pressure [place] [facility] Heart rate 2020-12-05 18:00:00 94 /min Universi ty of [place] [facility] Respiratory rate 2020-12-05 18:00:00 13 /min Univ ersity of [place] [facility] Oxygen saturation in 2020-12-05 18:00:00 99 /min University of Arterial blood by [facility] P[facility] oxim[facility] Branch Body temperature 2020-12-05 14:51:00 37.44 Jessica Univ ersity of [place] [facility] Body height 2020-12-05 14:51:00 154.9 cm Universi ty of [place] [facility] Body weight 2020-12-05 14:51:00 54.432 kg Universi ty of [place] [facility] BMI 2020-12-05 14:51:00 22.67 kg/m2 Universi ty of [place] [facility] Systolic blood 2019-03-30 20:31:00 130 mm[Hg] Univer sity of pressure [place] [facility] Diastolic blood 2019-03-30 20:31:00 80 mm[Hg] Unive rsity of pressure [place] [facility] Heart rate 2019-03-30 20:31:00 86 /min Universi ty of [place] [facility] Body temperature 2019-03-30 20:31:00 36.78 Jessica Univ ersity of [place] [facility] Respiratory rate 2019-03-30 20:31:00 17 /min Univ ersity of [place] [facility] Body height 2019-03-30 20:31:00 152.4 cm Universi ty of [place] [facility] Body weight 2019-03-30 20:31:00 58.968 kg Universi ty of [place] [facility] BMI 2019-03-30 20:31:00 25.39 kg/m2 Universi ty of [place] [facility] Heart rate 2019-03-09 19:53:00 100 /min Universi ty of [place] [facility] Body temperature 2019-03-09 19:53:00 37.28 Jessica [facility] Respiratory rate 2019-03-09 19:53:00 16 /min [facility] Body height 2019-03-09 19:53:00 152.4 cm Universi ty of [place] [facility] Body weight 2019-03-09 19:53:00 59.591 kg Universi ty of [place] [facility] BMI 2019-03-09 19:53:00 25.66 kg/m2 Universi ty of [place] [facility] Systolic blood 2019-03-09 19:53:00 122 mm[Hg] Univer sity [facility] Diastolic blood 2019-03-09 19:53:00 83 mm[Hg] [facility] Procedures Procedure Date / Time Performing Clinician Source Performed CT ABDOMEN PELVIS WO 2021-05-17 15:26:48 Cyndee Landaverde [facility] CONTRAST Medical Branch URINALYSIS 2021-05-17 14:51:00 Cyndee L[facility]verde [facility] of [facility] CONSENT/REFUSAL FOR 2021-05-17 14:36:13 Doctor Unassigned, No Un iversity of [place] DIAGNOSIS AND TREATMENT Name Medical Branch CONSENT/REFUSAL FOR 2021-05-13 05:01:00 Doctor Unassigned, No Un [facility]ity [facility] [place] DIAGNOSIS AND TREATMENT Name Medical Branch CONSENT/REFUSAL FOR 2021-05-09 22:40:50 Doctor Unassigned, No Un [facility] [place] DIAGNOSIS AND TREATMENT Name Medical Branch CT ABDOMEN PELVIS W 2021-04-02 14:02:04 Estiven Long [facility] [place] CONTRAST Medical Branch COVID-19 (ID NOW RAPID 2021-04-02 13:43:00 Estiven Long [facility] TESTING) Medical Branch LIPASE 2021-04-02 13:30:00 Estiven Long o f [place] [facility] COMP. METABOLIC PANEL 2021-04-02 13:30:00 Estiven Long [facility] ([id number]) Medical Branch CBC WITH DIFF 2021-04-02 13:30:00 Singer [facility] URINALYSIS 2021-04-02 13:30:00 Singer [facility] POCT TEST 2021-04-02 13:30:00 Estiven Long [facility] NOTICE OF PRIVACY 2021-04-02 13:19:11 Doctor Unassigned, No [facility] Name [facility] CONSENT/REFUSAL FOR 2021-04-02 13:18:49 Doctor Unassigned, No Un iversity [facility] DIAGNOSIS AND TREATMENT Name [facility] XR LUMBAR SPINE 2 2020-12-14 03:13:05 Chan Jurado [facility] XR SPINE THORACIC 2 2020-12-14 03:13:05 Chan Jurado [facility] CONSENT/REFUSAL FOR 2020-12-14 02:25:16 Doctor Unassigned, No [facility] TROPONIN I 2020-12-05 18:08:00 Julia Clinton [facility] XR CHEST 1 VW 2020-12-05 16:11:02 Julia Clinton [facility] MAGNESIUM 2020-12-05 15:47:00 Julia Clinton [facility] TROPONIN I 2020-12-05 15:47:00 Julia Clinton [facility] COMP. METABOLIC PANEL 2020-12-05 15:47:00 Julia Clinton [facility] ([id number]) Medical Branch CBC WITH DIFF 2020-12-05 15:47:00 Julia Clinton [facility] D-DIMER 2020-12-05 15:47:00 Juila Clinton [facility] N-TERMINAL PRO-BNP 2020-12-05 15:47:00 Julia Clinton [facility] NOTICE OF PRIVACY 2020-12-05 14:37:06 Doctor Unassigned, No [facility] Name Medical Branch CONSENT/REFUSAL FOR 2020-12-05 14:36:53 [facility] [place] BCCS-RELATED 2019-05-05 05:01:00 Doctor Unassigned, No [facility] DOCUMENTATION Name [facility] DISCLOSURE AND CONSENT, 2019-03-31 05:01:00 Doctor Unassigned, N o [facility] MEDICAL AND SURGICAL Name Medical Bra nch PROCEDURES POCT TEST 2019-03-30 20:28:00 Nereida Key [facility] PAP SMEAR-LIQUID 2019-03-09 20:53:00 Lizbeth Guzman [facility] BASED- [facility] [place] ASSIGNMENT OF BENEFITS 2019-03-09 19:13:12 Doctor Unassigned, No General acute hospital Encounters Start End Encounter Admission Attending Care Care Encounter Source Date/Time Date/Time Type Type Clinicians Facility Department ID 2021-06-[address] [facility] [id number] Univers 03:18:14 ity of [facility] 2021-06-[address] [facility] [id number] Univers 01:17:58 ity of [facility] 2021-06-[address] [facility] [id number] Univers 16:20:25 ity [facility] 2021-06-[address] [facility] [id number] Univers 16:28:23 ity [facility] 2021-06-[address] [facility] [id number] Univers 14:35:21 ity [facility] 2021-05-17 2021-05-17 [facility] [id number] Univers 09:39:00 11:10:00 Cyndee Maher [id number] [facility] [id number] [facility] [id number] [place] [id number] Branch 2021-05-17 2021-05-[address] [facility] [id number] Univers 10:20:00 10:20:00 [id number] ity of [facility] 2021-05-17 2021-05-[address] [facility] [id number] Univers 10:20:00 10:20:00 AMY ity o f [facility] 2021-05-17 2021-05-17 Orders Doctor LISA [id number] Univers 00:00:00 00:00:00 Only Unassigned, ILANA [id number] ity of [place] [facility] [id number] [place] [id number] [facility] 009 Branch 2021-05-16 2021-05-[address] [facility] [id number] Univers 00:00:00 00:00:00 ity of [facility] 2021-05-15 2021-05-15 Letter Flavio [facility] [id number] Univers 00:00:00 00:00:00 (Out) Osvaldo Black [id number] i ty of [facility] [id number] [place] [id number] [facility] 370 Branch [place] 2021-05-13 2021-05-13 Nurse Therapy, Adc Covid Infusion [facility] [id number] Univers 15:04:20 16:04:20 Visit Kwabena Lantigua [id number] [id number] [place] [id number] [facility] 053 Branch 2021-05-13 2021-05-[address] [facility] [id number] Univers 16:00:00 16:00:00 [id number] ity of [facility] 2021-05-13 2021-05-13 Outpatient R HECTOR, [facility] [id number] Univers 16:00:00 16:00:00 KWABENA osheay of [facility] 2021-05-13 2021-05-13 Orders Doctor GONZALEZ [id number] Univers 00:00:00 00:00:00 Only Unassigned, ILANA [id number] ity of [place] [facility] [id number] [place] [phone] [facility] 009 Branch 2021-05-10 2021-05-10 Telephone Julia Clinton [facility] [id number] Univers 00:00:00 00:00:00 Jackie Maher [id number] i ty of [place] [id number] [facility] [id number] [facility] 084 Branch 2021-05-09 2021-05-09 Emergency Julia Clinton [facility] [id number] Univers 17:47:00 19:19:00 Jackie Maher [id number] i ty of [place] [id number] [facility] [phone] [place] [id number] Branch 2021-04-02 2021-04-02 Emergency Long, [facility] [id number] Univers 08:31:00 10:21:00 Estiven Maher 350.1.13.10 i ty of [place] 4.2.7.2.686 [facility] [phone] [facility] 084 Branch 2020-12-13 2020-12-13 Emergency Allen, [facility] [id number] Univers 21:40:00 23:17:00 Chan Maher 350.1.13.10 i ty of [place] 4.2.7.2.686 [facility] [phone] [facility] 084 Branch 2020-12-06 2020-12-06 Telephone LISA Tariq [id number] Univers 00:00:00 00:00:00 Olaf PRECIADO 350.1.13.10 ity of [facility] 4.2.7.2.686 [place] as [phone] [facility] 019 Branch 2020-12-05 2020-12-05 Emergency Julia Clinton [facility] 1.2.840.114 [id number] Univers 09:46:00 14:57:00 Jackie Maher 350.1.13.10 i ty of [place] 4.2.7.2.686 [facility] [phone] [facility] 084 Branch 2020-12-05 2020-12-05 Orders Doctor LISA 1.2.840.114 [id number] Univers 00:00:00 00:00:00 Only Unassigned, ILANA 350.1.13.10 ity of [place] [facility] 4.2.7.2.686 [place] as [phone] [address] 2019-05-05 2019-05-05 Orders Doctor LISA 1.2.840.114 [id number] Univers 00:00:00 00:00:00 Only Unassigned, ILANA 350.1.13.10 ity of [place] [facility] 4.2.7.2.686 [place]ando as [phone] [address] 2019-05-01 2019-05-01 Telephone [facility] 1.2.840.114 [id number] Univers 00:00:00 00:00:00 Lizbeth C RADIATOR REPAIRER 350.1.13.10 ity of [facility] 4.2.7.2.686 [place] as MATERNAL [phone] Med ical & CHILD [address] [place] [address] 2019-05-01 2019-05-01 Telephone [facility] 1.2.840.114 [id number] 00:00:00 00:00:00 Lizbeth C RADIATOR REPAIRER 350.1.13.10 REGIONAL 4.2.7.2.686 MATERNAL [phone] & CHILD [address] [place] [address] 2019-04-26 2019-04-26 [facility] 1.2.840.114 [id number] Univers 07:05:38 23:59:00 Encounter Lizbeth Osei SPECIALTY 350.1.13.10 [place] [phone] [address] 2019-04-03 2019-04-03 Telephone ADELITA KeyIT 1.2.840.114 [id number] Univers 00:00:00 00:00:00 [facility] HEALTH 350.1.13.10 i ty [place] [phone] [facility] [address] 2019-03-31 2019-03-31 Orders Doctor GONZALEZ 1.2.840.114 [id number] Univers 00:00:00 00:00:00 Only Unassigned, ILANA 350.1.13.10 ity of [place] [facility] 4.2.7.2.686 [place] as [phone] [facility] 009 Branch 2019-03-30 2019-03-30 Office Res-Chuy/Steffen, [facility] UNIVERSI T 1.2.840.114 [id number] Univers 14:31:59 16:30:31 Visit Alejo Cooper [facility] 350.1.13.10 ity of [facility] 4.2.7.2.[place] [id number] [facility] [address] 2019-03-17 2019-03-17 Telephone [facility], [facility] 1.2.840.114 [id number] Univers 00:00:00 00:00:00 Lizbeth C RADIATOR REPAIRER 350.1.13.10 ity of [facility] 4.2.7.2.686 [place] as MATERNAL [phone] Med ical & CHILD [address] [place] [address] 2019-03-17 2019-03-17 Telephone [facility], [facility] 1.2.840.114 [id number] Univers 00:00:00 00:00:00 Lizbeth C RADIATOR REPAIRER 350.1.13.10 ity of [facility] 4.2.7.2.686 [place] as MATERNAL [phone] [facility] ical & CHILD [address] [place] [address] 2019-03-17 2019-03-17 Telephone [facility], [facility] 1.2.840.114 [id number] Univers 00:00:00 00:00:00 Lizbeth C RADIATOR REPAIRER 350.1.13.10 ity of [facility] 4.2.7.2.686 [place] as MATERNAL [phone] Med ical &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
[2021-08-12] MEDS ORDERED: DIPHENHYDRAMINE 25 MG TAB/CAP ONE (09:46)
[2021-08-12] MEDS ORDERED: FAMOTIDINE 20 MG TAB ONE (09:47)
[2021-08-12] MEDS ORDERED: dexAMETHasone 10 MG/ML VIAL ONE (09:47)
--- NOTE | 2021-08-12 09:48 | ER ---
Nurse's Notes [facility] Name: Chelsea Sapp Age: 56 yrs Sex: Female : 1965 Arrival Date: 08/12/2021 Time: 08:46 Bed Treatment Private MD: Diagnosis: Rash and other nonspecific skin eruption Presentation: 08/12 09:07 Chief complaint: Patient states: here with other pt for rash; pt states rash is just on ll1 breasts... still believed rash from cat or boyfriend since they all sleep together. Coronavirus screen: Vaccine status: Patient reports being unvaccinated. Client denies travel out of the [place] in the last 14 days. At this time, the client does not indicate any symptoms associated with coronavirus-19. Ebola Screen: Patient negative for fever greater than or equal to 101.5 degrees Fahrenheit, and additional compatible Ebola Virus Disease symptoms Patient denies exposure to infectious person. Patient denies travel to an Ebola-affected area in the 21 days before illness onset. Onset: The symptoms/episode began/occurred gradually. Anaphylaxis evaluation, no signs or symptoms of anaphylaxis were noted. Initial Sepsis Screen: Does the patient meet any 2 criteria? No. Patient's initial sepsis screen is negative. Does the patient have a suspected source of infection? No. Patient's initial sepsis screen is negative. Risk Assessment: Do you want to hurt yourself or someone else? Patient reports no desire to harm self or others. Onset of symptoms was August 08, 2021. 09:07 Method Of Arrival: Ambulatory ll1 09:07 Acuity: CAMERON 4 ll1 Triage Assessment: 09:10 General: Appears in no apparent distress. well groomed, well developed, well nourished, ll1 Behavior is calm, cooperative, appropriate for age. Pain: Denies pain. 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 - Social history:: Smoking status: Patient denies any tobacco usage or history of. Screenin: Abuse screen: Denies threats or abuse. Nutritional screening: No deficits noted. ll1 Tuberculosis screening: No symptoms or risk factors identified. Fall Risk Total Flores Fall Scale indicates No Risk (0-24 pts). Assessment: 09:23 Reassessment: No changes from previously documented assessment. Patient and/or family ll1 updated on plan of care and expected duration. Pain level reassessed. Patient is alert, oriented x 3, equal unlabored respirations, skin warm/dry/pink. Respiratory: Airway is patent Respiratory effort is even, Breath sounds are clear bilaterally. Derm: Reports rash with itching to R breast. 10:10 Reassessment: No changes from previously documented assessment. Patient and/or family ll1 updated on plan of care and expected duration. Pain level reassessed. Patient is alert, oriented x 3, equal unlabored respirations, skin warm/dry/pink. Vital Signs: 09:07 BP 135 / 86; Pulse 98; Resp 18; Temp 97.5; Pulse Ox 100% ; Weight 67.13 kg; Height 5 ll1 ft. 0 in. (152.40 cm); 09:07 Body Mass Index 28.90 (67.13 kg, 152.40 cm) ll1 ED Course: 08:46 Patient arrived in ED. mr 09:10 Triage completed. ll1 09:17 Alex Fagan, JUSTINA is Primary Nurse. ll1 09:19 Bora Goodman NP is PHCP. pm1 09:19 Colton Richey MD is Attending Physician. pm1 09:25 Arm band placed on Patient placed in an exam room, on a stretcher. ll1 09:28 Patient has correct armband on for positive identification. Bed in low position. ll1 Cardiac monitoring not applicable on this patient. 09:28 No provider procedures requiring assistance completed. Patient did not have IV access ll1 during this emergency room visit. Administered Medications: 09:56 Drug: Decadron (dexamethasone) 10 mg Route: IM; Site: right gluteus; ll1 15:06 Follow up: Response: No adverse reaction ll1 09:56 Drug: Pepcid (famotidine) 20 mg Route: PO; ll1 10:10 Follow up: Response: No adverse reaction ll1 09:56 Drug: Benadryl (diphenhydrAMINE) 25 mg Route: PO; ll1 10:10 Follow up: Response: No adverse reaction ll1 Outcome: 09:47 Discharge ordered by . pm1 10:12 Patient left the ED. ll1 10:12 Discharged to home ambulatory. ll1 10:12 Condition: stable 10:12 Discharge instructions given to patient, family, Instructed on discharge instructions, follow up and referral plans. medication usage, Demonstrated understanding of instructions, follow-up care, medications, Prescriptions given X 3. Signatures: Leydi Bateman mr Bora Goodman NP SELF PROPELLED HOT MIX ROLLER OPERATOR pm1 Alex Fagan RN RN 1
--- NOTE | 2021-08-12 09:48 | EDPHYS ---
Physician Documentation [facility] Name: Chelsea Sapp Age: 56 yrs Sex: Female : 1965 Arrival Date: 08/12/2021 Time: 08:46 Bed Treatment Private MD: ED Physician Colton Richey HPI: 08/12 11:31 This 56 yrs old Female presents to ER via Ambulatory with complaints of Rash, kdr Itching. 11:31 The patient's rash thought to be caused by Contact allergy. The rash is located on the pm1 right breast. The rash can be described as raised, urticarial. Onset: The symptoms/episode began/occurred 2 day(s) ago. Associated signs and symptoms: Pertinent positives: itching, Pertinent negatives: fever. Severity of symptoms: in the emergency department the symptoms are worse. The patient has not experienced similar symptoms in the past. Patient's used new detergent and lots of it with laundry. 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 - Social history:: Smoking status: Patient denies any tobacco usage or history of. ROS: 11:31 Constitutional: Negative for fever, chills, and weight loss, Cardiovascular: Negative pm1 for chest pain, palpitations, and edema, Respiratory: Negative for shortness of breath, cough, wheezing, and pleuritic chest pain, Abdomen/GI: Negative for abdominal pain, nausea, vomiting, diarrhea, and constipation, MS/Extremity: Negative for injury and deformity. 11:31 Neuro: Negative for headache, weakness, numbness, tingling, and seizure. 11:31 Skin: Positive for of the right breast. 11:31 All other systems are negative. Exam: 11:31 Constitutional: This is a well developed, well nourished patient who is awake, alert, pm1 and in no acute distress. Head/Face: Normocephalic, atraumatic. Cardiovascular: Regular rate and rhythm with a normal S1 and S2. No gallops, murmurs, or rubs. Normal PMI, no JVD. No pulse deficits. Respiratory: Lungs have equal breath sounds bilaterally, clear to auscultation and percussion. No rales, rhonchi or wheezes noted. No increased work of breathing, no retractions or nasal flaring. 11:31 Skin: Appearance: normal except for affected area, consistent with contact dermatitis, health care recruiter by Jesi HORN. 11:31 Neuro: Exam negative for acute changes, Orientation: is normal, Mentation: is normal, Motor: is normal, moves all fours. Vital Signs: 09:07 BP 135 / 86; Pulse 98; Resp 18; Temp 97.5; Pulse Ox 100% ; Weight 67.13 kg; Height 5 ll1 ft. 0 in. (152.40 cm); 09:07 Body Mass Index 28.90 (67.13 kg, 152.40 cm) ll1 MDM: 09:29 Patient medically screened. pm1 09:45 Data reviewed: vital signs. Data interpreted: Pulse oximetry: on room air is 100 %. pm1 Interpretation: normal. Counseling: I had a detailed discussion with the patient and/or guardian regarding: the historical points, exam findings, and any diagnostic results supporting the discharge/admit diagnosis, the need for outpatient follow up, to return to the emergency department if symptoms worsen or persist or if there are any questions or concerns that arise at home. Administered Medications: 09:56 Drug: Decadron (dexamethasone) 10 mg Route: IM; Site: right gluteus; ll1 15:06 Follow up: Response: No adverse reaction ll1 09:56 Drug: Pepcid (famotidine) 20 mg Route: PO; ll1 10:10 Follow up: Response: No adverse reaction ll1 09:56 Drug: Benadryl (diphenhydrAMINE) 25 mg Route: PO; ll1 10:10 Follow up: Response: No adverse reaction ll1 Disposition: 11:31 Co-signature as Attending Physician, Colton Richey MD I agree with the assessment and kdr plan of care. Disposition Summary: 08/12/21 09:47 Discharge Ordered Location: Home pm1 Problem: new pm1 Symptoms: have improved pm1 Condition: Stable pm1 Diagnosis - Rash and other nonspecific skin eruption pm1 Followup: pm1 - With: Emergency Department - When: As needed - Reason: Worsening of condition Followup: pm1 - With: Private Physician - When: 2 - 3 days - Reason: Recheck today's complaints, Continuance of care, Re-evaluation by your physician Discharge Instructions: - Discharge Summary Sheet pm1 - Contact Dermatitis pm1 - Rash, Adult pm1 Forms: - Medication Reconciliation Form pm1 - Thank You Letter pm1 - Antibiotic Education pm1 - Prescription Opioid Use pm1 - Work release form ll1 Prescriptions: - Benadryl 25 mg Oral Capsule - take 1 capsule by ORAL route every 6 hours As needed; 30 tablet; Refills: 0, pm1 Product Selection Permitted - Pepcid 20 mg Oral Tablet - take 1 tablet by ORAL route every 12 hours for 10 days; 20 tablet; Refills: 0, pm1 Product Selection Permitted - Medrol (Gelacio) 4 mg Oral Tablets, Dose Pack - take 1 tablet by ORAL route as directed - follow package instructions; 1 pm1 packet; Refills: 0, Product Selection Permitted Signatures: Colton Richey MD MD kdr Bora Goodman NP TRUCK BODY BUILDER pm1 Alex Fagan RN RN 1 Corrections: (The following items were deleted from the chart) 21:30 11:31 The rash is located on the back, chest and abdomen, pm1 pm1 21:30 11:31 Patient used new detergent and lots of it with laundry. pm1 pm1 : 11:31 Skin: Positive for of the abdomen and chest and back, pm1 pm1 :31 11:31 Skin: Appearance: normal except for affected area, consistent with contact pm1 dermatitis, pm1
[2021-08-12 10:17] VITALS: BP 135/86; TEMP 97.5; O2SAT 100
== END 2021-08-12 10:12 | disposition home or self-care (01) ==
LOC: ER 08:44
DX: R21 Rash and other nonspecific skin eruption (principal)
CPT/HCPCS: 96372; 99283; J1100

== ENCOUNTER 2021-08-16 17:41 | Emergency (ER) | payer OTHER ==
--- OUTSIDE RECORDS SUMMARY | 2021-08-16 17:47 | XMS REPORT | Continuity of Care Document ---
:1965 Author Organization [facility] t Address [address] [place] [address] Care Team Providers Name Role Phone Pcp, Does Not Have A Primary Care Physician Hilda Landaverde DO Attending Clinician GENE Attending Clinician Unavailable Doctor Unassigned, Name Attending Clinician Unavailable Flavio LOVE, H Attending Clinician Therapy, Covid Infusion Attending Clinician Unavailable Dario Lantigua MD Attending Clinician Dario LANTIGUA Attending Clinician Unavailable Jackie Galvez Attending Clinician Singer MCCALL Attending Clinician Allen CORBIN, R Attending Clinician Marciano HORN Attending Clinician Unavailable Megan WARD C Attending Clinician Guera Key Attending Clinician Res-Colpo/Leep Attending Clinician Unavailable Kenneth LOVE, W Attending Clinician Payers Payer Name Policy Type Policy Number Effective Date Expiration Date S fan JOHNSONS [id number] 2020 HEALTH 00:00:00 Advance Directives Directive Decision Effective Termination Comments Source Date Date Healthcare Agents on N/A Univ ersity FileNameRelationshipHealthcare of [place] Agent [facility] Partner[facility] Care [phone] (Mobile) Problems Condition Condition Condition Status Onset [...] ity of management management 00:00[place] [facility] Well woman Well woman Disease Active 2019-0 U nivers exam exam 03-10 ity of 00:00: [place] [facility] Contracept Contracept Disease Active 2019-0 [...] tubal 03-10 ity of ligation ligation 00:00: [place] [address] Medical Branch No known No known Disease Unive rs active active ity of problems problems [facility] Allergies, Adverse Reactions, Alerts Allergy Allergy Status Severity Reaction(s) Onset Inactive Treating Comm ents Source Name Type Date Date Clinician NO KNOWN Drug Active Univers ALLERGIE Class ity of [facility] [place] [facility] [place] Social History Social Habit Start Date Stop Date Quantity Comments Source Exposure to Yes [facility] SARS-CoV-2 (event) Medica l Branch Tobacco use and 2019-04-26 2019-04-26 Never used [facility] exposure 00:00:00 00:00:00 [facility] Branch Alcohol intake 2019-04-26 2019-04-26 0 /d [facility] 00:00:00 00:00:00 [facility] Sex Ass[birth year] At [birth year] [facility] 00:00:00 00:00:00 [facility] Branch Smoking Status Start Date Stop Date Source Never smoker [facility] Medications Ordered Filled Start Stop Current Ordering Indication Dosage Frequency Signature Comments Components Source Medication Medication Date Date Medication? Clinician (SIG) Name Name ondansetron 2020-08- No 4mg 4 mg, Univ ers (ZOFRAN-ODT 005-17 Oral, ity of ) 16:00: 14:57 ONCE, 1 [place] disintegrat 00 :00 dose, On Medi dez ing tablet Sat Branch 4 mg 05/17/21 at 1100, Routine casirivimab 2020- No [id number] 1200mg 1,200 mg, Univers -imdevimab 05-13 Subcutaneo [...] Branch 05/09/21 at 1945, THOMAS ibuprofen Yes [id number] 600mg Take 1 Univers 600 mg 9-24 tablet by ity of tablet 00:00: mouth [place] 00 every 6 Medical (six) Branch hours as needed for Pain (scale 4-6). benzonatate Yes [id number] 100mg Take 1 Univers 100 mg 9-24 capsule by ity of capsule 00:00: mouth 3 [place] 00 (three) Medical times Branch daily as needed for Cough. ondansetron 2021-0 Yes [id number] 4mg Take 1 Univers (ZOFRAN 9-24 tablet by ity of ODT) 4 mg 00:00: mouth [place] disintegrat 00 every 8 Medic al ing tablet (eight) Branch hours as needed for Nausea and Vomiting (N/V). ibuprofen 1-0 Yes [id number] 600mg Take 1 Univers 600 mg 9-24 tablet by ity of tablet 00:00: mouth [place] 00 every 6 Medical (six) Branch hours as needed for Pain (scale 4-6). benzonatate 2021-0 Yes [id number] 100mg Take 1 Univers 100 mg 9-24 capsule by ity of capsule 00:00: mouth 3 [place] 00 (three) Medical times Branch daily as needed for Cough. ondansetron 2020-0 Yes [id number] 4mg Take 1 Univers (ZOFRAN 9-24 tablet by ity of ODT) 4 mg 00:00: mouth [place] disintegrat 00 every 8 Medic al ing tablet (eight) Branch hours as needed for Nausea and Vomiting (N/V). ibuprofen 2020-0 Yes [id number] 600mg Take 1 Univers 600 mg 9-24 tablet by ity of tablet 00:00: mouth [place] 00 every 6 Medical (six) Branch hours as needed for Pain (scale 4-6). benzonatate 1-0 Yes [id number] 100mg Take 1 Univers 100 mg 9-24 capsule by ity of capsule 00:00: mouth 3 [place] 00 (three) Medical times Branch daily as needed for Cough. ondansetron 1-0 Yes [id number] 4mg Take 1 Univers (ZOFRAN 9-24 tablet by ity of ODT) 4 mg 00:00: mouth [place] disintegrat 00 every 8 Medic al ing tablet (eight) Branch hours as needed for Nausea and Vomiting (N/V). ibuprofen 2021-0 Yes [id number] 600mg Take 1 Univers 600 mg 9-24 tablet by ity of tablet 00:00: mouth [place] 00 every 6 Medical (six) Branch hours as needed for Pain (scale 4-6). benzonatate 2021-0 Yes [id number] 100mg Take 1 Univers 100 mg 9-24 capsule by ity of capsule 00:00: mouth 3 [place] 00 (three) Medical times Branch daily as needed for Cough. ondansetron 1-0 Yes [id number] 4mg Take 1 Univers (ZOFRAN 9-24 tablet by ity of ODT) 4 mg 00:00: mouth [place] disintegrat 00 every 8 Medic al ing tablet (eight) Branch hours as needed for Nausea and Vomiting (N/V). ibuprofen 2020-0 Yes [id number] 600mg Take 1 Univers 600 mg 9-24 tablet by ity of tablet 00:00: mouth [place] 00 every 6 Medical (six) Branch hours as needed for Pain (scale 4-6). benzonatate 202-0 Yes [id number] 100mg Take 1 Univers 100 mg 9-24 capsule by ity of capsule 00:00: mouth 3 [place] 00 (three) Medical times Branch daily as needed for Cough. ondansetron 2020-0 Yes [id number] 4mg Take 1 Univers (ZOFRAN 9-24 tablet by ity of ODT) 4 mg 00:00: mouth [place] disintegrat 00 every 8 Medic al ing tablet (eight) Branch hours as needed for Nausea and Vomiting (N/V). ibuprofen 2020-0 Yes [id number] 600mg Take 1 Univers 600 mg 9-24 tablet by ity of tablet 00:00: mouth [place] 00 every 6 Medical (six) Branch hours as needed for Pain (scale 4-6). benzonatate 1-0 Yes [id number] 100mg Take 1 Univers 100 mg 9-24 capsule by ity of capsule 00:00: mouth 3 [place] 00 (three) Medical times Branch daily as needed for Cough. ondansetron 1-0 Yes [id number] 4mg Take 1 Univers (ZOFRAN 9-24 tablet by ity of ODT) 4 mg 00:00: mouth [place] disintegrat 00 every 8 Medic al ing tablet (eight) Branch hours as needed for Nausea and Vomiting (N/V). ibuprofen 2021-0 Yes [id number] 600mg Take 1 Univers 600 mg 9-24 tablet by ity of tablet 00:00: mouth [place] 00 every 6 Medical (six) Branch hours as needed for Pain (scale 4-6). benzonatate 2021-0 Yes [id number] 100mg Take 1 Univers 100 mg 9-24 capsule by ity of capsule 00:00: mouth 3 [place] 00 (three) Medical times Branch daily as needed for Cough. ondansetron 0 Yes [id number] 4mg Take 1 Univers (ZOFRAN 9-24 tablet by ity of ODT) 4 mg 00:00: mouth [place] disintegrat 00 every 8 Medic al ing tablet (eight) Branch hours as needed for Nausea and Vomiting (N/V). iopamidol 2020- No [id number] 100mL 100 mL, Univers (ISOVUE 04-02 Intravenou [...] 04/02/21 at 0830, STAT dicyclomine 2020-0 Yes [id number] 10mg Take 1 Univers 10 mg 8-18 capsule by ity of capsule 00:00: mouth [place] 00 every 8 Medical (eight) Branch hours as needed for Abdominal pain. dicyclomine 2020-0 Yes [id number] 10mg Take 1 Univers 10 mg 8-18 capsule by ity of capsule 00:00: mouth [place] 00 every 8 Medical (eight) Branch hours as needed for Abdominal pain. dicyclomine 2020-0 Yes [id number] 10mg Take 1 Univers 10 mg 8-18 capsule by ity of capsule 00:00: mouth [place] 00 every 8 Medical (eight) Branch hours as needed for Abdominal pain. dicyclomine 2020-0 Yes [id number] 10mg Take 1 Univers 10 mg 8-18 capsule by ity of capsule 00:00: mouth [place] 00 every 8 Medical (eight) Branch hours as needed for Abdominal pain. dicyclomine 2020-0 Yes [id number] 10mg Take 1 Univers 10 mg 8-18 capsule by ity of capsule 00:00: mouth [place] 00 every 8 Medical (eight) Branch hours as needed for Abdominal pain. dicyclomine 2020-0 Yes [id number] 10mg Take 1 Univers 10 mg 8-18 capsule by ity of capsule 00:00: mouth [place] 00 every 8 Medical (eight) Branch hours as needed for Abdominal pain. dicyclomine 2020-0 Yes [id number] 10mg Take 1 Univers 10 mg 8-18 capsule by ity of capsule 00:00: mouth [place] 00 every 8 Medical (eight) Branch hours as needed for Abdominal pain. dicyclomine 0 Yes [id number] 10mg Take 1 Univers 10 mg 8-18 capsule by ity of capsule 00:00: mouth [place] 00 every 8 Medical (eight) Branch hours as needed for Abdominal pain. cephALEXin 2020- No [id number] 500mg Take 1 Univers (KEFLEX) 8-18 -26 [...] Medical 12/13/20 at Branch 2300, THOMAS ketorolac 2020- No 60mg 60 mg, Unive rs (TORADOL) 12-14 Intramuscu ity of injection 04:00: 03:05 [place], ONCE, [place] 60 mg 00 :00 1 dose, Medical Fri Branch 12/13/20 at 2300, THOMAS
Fa [facility] member approving Restricted medication : CHAN JURADO methocarbam 2020-0 Yes [id number] 500mg Take 1 Univers oL 4-30 tablet by ity of (ROBAXIN) 00:00: mouth 4 [place] 500 mg 00 (four) Medical tablet times Branch daily as needed for Pain (scale 7-10). Diclofenac 2020-0 Yes [id number] Apply to Univers Sodium 4-30 area(s) 2 ity of (VOLTAREN) 00:00: (two) [place] 1 % gel 00 times Medical daily. Branch traMADoL 50 2020-0 Yes [id number] 50mg Take 1 Univ ers mg tablet 4-30 tablet by ity o f 00:00: mouth [place] 00 every 6 Medical (six) Branch hours as needed for Pain (scale 7-10). Indication s: acute pain methocarbam 2020-0 Yes [id number] 500mg Take 1 Univers oL 4-30 tablet by ity of (ROBAXIN) 00:00: mouth 4 [place] 500 mg 00 (four) Medical tablet times Branch daily as needed for Pain (scale 7-10). Diclofenac 2020-0 Yes [id number] Apply to Univers Sodium 4-30 area(s) 2 ity of (VOLTAREN) 00:00: (two) [place] 1 % gel 00 times Medical daily. Branch traMADoL 50 2020-0 Yes [id number] 50mg Take 1 Univ ers mg tablet 4-30 tablet by ity o f 00:00: mouth [place] 00 every 6 Medical (six) Branch hours as needed for Pain (scale 7-10). Indication s: acute pain methocarbam 2020-0 Yes [id number] 500mg Take 1 Univers oL 4-30 tablet by ity of (ROBAXIN) 00:00: mouth 4 [place] 500 mg 00 (four) Medical tablet times Branch daily as needed for Pain (scale 7-10). Diclofenac 2020-0 Yes [id number] Apply to Univers Sodium 4-30 area(s) 2 ity of (VOLTAREN) 00:00: (two) [place] 1 % gel 00 times Medical daily. Branch traMADoL 50 2020-0 Yes [id number] 50mg Take 1 Univ ers mg tablet 4-30 tablet by ity o f 00:00: mouth [place] 00 every 6 Medical (six) Branch hours as needed for Pain (scale 7-10). Indication s: acute pain methocarbam 2021-0 Yes [id number] 500mg Take 1 Univers oL 4-30 tablet by ity of (ROBAXIN) 00:00: mouth 4 [place] 500 mg 00 (four) Medical tablet times Branch daily as needed for Pain (scale 7-10). Diclofenac 2020-0 Yes [id number] Apply to Univers Sodium 4-30 area(s) 2 ity of (VOLTAREN) 00:00: (two) [place] 1 % gel 00 times Medical daily. Branch traMADoL 50 2020-0 Yes [id number] 50mg Take 1 Univ ers mg tablet 4-30 tablet by ity o f 00:00: mouth [place] 00 every 6 Medical (six) Branch hours as needed for Pain (scale 7-10). Indication s: acute pain methocarbam 2020-0 Yes [id number] 500mg Take 1 Univers oL 4-30 tablet by ity of (ROBAXIN) 00:00: mouth 4 [place] 500 mg 00 (four) Medical tablet times Branch daily as needed for Pain (scale 7-10). Diclofenac 2020-0 Yes [id number] Apply to Univers Sodium 4-30 area(s) 2 ity of (VOLTAREN) 00:00: (two) [place] 1 % gel 00 times Medical daily. Branch traMADoL 50 2020-0 Yes [id number] 50mg Take 1 Univ ers mg tablet 4-30 tablet by ity o f 00:00: mouth [place] 00 every 6 Medical (six) Branch hours as needed for Pain (scale 7-10). Indication s: acute pain methocarbam 2021-0 Yes [id number] 500mg Take 1 Univers oL 4-30 tablet by ity of (ROBAXIN) 00:00: mouth 4 [place] 500 mg 00 (four) Medical tablet times Branch daily as needed for Pain (scale 7-10). Diclofenac 2021-0 Yes [id number] Apply to Univers Sodium 4-30 area(s) 2 ity of (VOLTAREN) 00:00: (two) [place] 1 % gel 00 times Medical daily. Branch traMADoL 50 2020-0 Yes [id number] 50mg Take 1 Univ ers mg tablet 4-30 tablet by ity o f 00:00: mouth [place] 00 every 6 Medical (six) Branch hours as needed for Pain (scale 7-10). Indication s: acute pain methocarbam 2021-0 Yes [id number] 500mg Take 1 Univers oL 4-30 tablet by ity of (ROBAXIN) 00:00: mouth 4 [place] 500 mg 00 (four) Medical tablet times Branch daily as needed for Pain (scale 7-10). Diclofenac 1-0 Yes [id number] Apply to Univers Sodium 4-30 area(s) 2 ity of (VOLTAREN) 00:00: (two) [place] 1 % gel 00 times Medical daily. Branch traMADoL 50 2020-0 Yes [id number] 50mg Take 1 Univ ers mg tablet 4-30 tablet by ity o f 00:00: mouth [place] 00 every 6 Medical (six) Branch hours as needed for Pain (scale 7-10). Indication s: acute pain methocarbam 2020-0 Yes [id number] 500mg Take 1 Univers oL 4-30 tablet by ity of (ROBAXIN) 00:00: mouth 4 [place] 500 mg 00 (four) Medical tablet times Branch daily as needed for Pain (scale 7-10). Diclofenac 2020-0 Yes [id number] Apply to Univers Sodium 4-30 area(s) 2 ity of (VOLTAREN) 00:00: (two) [place] 1 % gel 00 times Medical daily. Branch traMADoL 50 2020-0 Yes [id number] 50mg Take 1 Univ ers mg tablet 4-30 tablet by ity o f 00:00: mouth [place] 00 every 6 Medical (six) Branch hours as needed for Pain (scale 7-10). Indication s: acute pain methocarbam 2021-0 Yes [id number] 500mg Take 1 Univers oL 4-30 tablet by ity of (ROBAXIN) 00:00: mouth 4 [place] 500 mg 00 (four) Medical tablet times Branch daily as needed for Pain (scale 7-10). Diclofenac 2021-0 Yes [id number] Apply to Univers Sodium 4-30 area(s) 2 [...] mg 00 :00 ONCE, 1 Medical dose, [facility] 12/05/20 at 1345, THOMAS
Fa culty member approving Restricted medication : Julia CLINTON nitroglycer No .5[in_u 0.5 Inch, Univers in (NITROL) 12-05 s] Transderma i ty of 2 % 16:45: 15:51 l (Apply [place] ointment 00 :00 To Skin), Medica l 0.5 Inch ONCE, 1 Branch dose, [facility] 12/05/20 at 1145, THOMAS aspirin No 324mg 324 mg, Unive rs chewable 12-05 Oral, ity of tablet 324 16:45: 15:51 ONCE, 1 [place] as mg 00 :00 dose, [facility] Medical 12/05/20 at Branch 1145, Routine multivitami 2020- No [id number] 1{tbl} Take 1 Univers n tablet 8-15 08-15 tablet by ity o f 00:00: 04:59 mouth [place] 00 :00 daily. [facility] Branch multivitami 2020- No [id number] 1{tbl} Take 1 Univers n tablet 8-15 08-15 tablet by ity o f 00:00: 04:59 mouth [place] 00 :00 daily. [facility] Branch multivitami 2020- No [id number] 1{tbl} Take 1 Univers n tablet 8-15 08-15 tablet by ity o f 00:00: 04:59 mouth [place] 00 :00 daily. [facility] Branch multivitami 2020- No [id number] 1{tbl} Take 1 Univers n tablet 8-15 08-15 tablet by ity o f 00:00: 04:59 mouth [place] 00 :00 daily. [facility] Branch multivitami 2020- No [id number] 1{tbl} Take 1 Univers n tablet 8-15 08-15 tablet by ity o f 00:00: 04:59 mouth [place] 00 :00 daily. [facility] Branch multivitami 2020- No [id number] 1{tbl} Take 1 Univers n tablet 8-15 08-15 tablet by ity o f 00:00: 04:59 mouth [place] 00 :00 daily. [facility] Branch multivitami 2020- No [id number] 1{tbl} Take 1 Univers n tablet 8-15 08-15 tablet by ity o f 00:00: 04:59 mouth [place] 00 :00 daily. [facility] Branch multivitami 2020- No [id number] 1{tbl} Take 1 Univers n tablet 8-15 08-15 tablet by ity o f 00:00: 04:59 mouth [place] 00 :00 daily. [facility] Branch ibuprofen 2019- No [id number] 600mg Take 3 Univers 200 mg 8-30 03-19 tablets by ity of tablet 00:00: 04:59 mouth [place] 00 :00 every 6 Medical (six) Branch hours as needed for Pain (scale 4-6) for up to 3 days. ibuprofen 2019- No [id number] 600mg Take 3 Univers 200 mg 8-15 08-19 tablets by ity of tablet 00:00: 04:59 mouth [place] 00 :00 every 6 Medical (six) Branch hours as needed for Pain (scale 4-6) for up to 3 days. metroNIDAZO 2019- No [id number] 2000mg Take 4 Univers LE 500 mg -08 23-02 tablets by ity of tablet 00:00: 04:59 [place] 00 :[place] now for 1 Medical dose. Branch metroNIDAZO 2019- No [id number] 2000mg Take 4 Univers LE 500 mg 8- 08-02 tablets by ity of tablet 00:00: 04:59 [place] 00 :00 now for 1 Medical dose. Branch norethindro Yes [id number] 1{tbl} Take 1 Univers ne 0.35 mg 7-26 tablet by ity of tablet 00:00: mouth [place] 00 daily. Medical Branch norethindro Yes [id number] 1{tbl} Take 1 Univers ne 0.35 mg 7-26 tablet by ity of tablet 00:00: mouth [place] 00 daily. [facility] Yes [id number] 1{tbl} Take 1 Univers ne 0.35 mg 7-26 tablet by ity of tablet 00:00: mouth [place] 00 daily. [facility] Yes [id number] 1{tbl} Take 1 Univers ne 0.35 mg 7-26 tablet by ity of tablet 00:00: mouth [place] 00 daily. [facility] Yes [id number] 1{tbl} Take 1 Univers ne 0.35 mg 7-26 tablet by ity of tablet 00:00: mouth [place] 00 daily. [facility] Yes [id number] 1{tbl} Take 1 Univers ne 0.35 mg 7-26 tablet by ity of tablet 00:00: mouth [place] 00 daily. [facility] Yes [id number] 1{tbl} Take 1 Univers ne 0.35 mg 7-26 tablet by ity of tablet 00:00: mouth [place] 00 daily. [facility] Yes [id number] 1{tbl} Take 1 Univers ne 0.35 mg 7-26 tablet by ity of tablet 00:00: mouth [place] 00 daily. [facility] Yes [id number] 1{tbl} Take 1 Univers ne 0.35 mg 7-26 tablet by ity of tablet 00:00: mouth [place] 00 daily. [facility] Yes [id number] 1{tbl} Take 1 Univers ne 0.35 mg 7-26 tablet by ity of tablet 00:00: mouth [place] 00 daily. [facility] Yes [id number] 1{tbl} Take 1 Univers ne 0.35 mg 7-26 tablet by ity of tablet 00:00: mouth [place] 00 daily. [facility] Yes [id number] 1{tbl} Take 1 Univers ne 0.35 mg 7-26 tablet by ity of tablet 00:00: mouth [place] 00 daily. [facility] Yes [id number] 1{tbl} Take 1 Univers ne 0.35 mg 7-26 tablet by ity of tablet 00:00: mouth [place] 00 daily. [facility] Yes [id number] 1{tbl} Take 1 Univers ne 0.35 mg 7-26 tablet by ity of tablet 00:00: mouth [place] 00 daily. [facility] Yes [id number] 1{tbl} Take 1 Univers ne 0.35 mg 7-26 tablet by ity of tablet 00:00: mouth [place] 00 daily. [facility] Yes [id number] 1{tbl} Take 1 Univers ne 0.35 mg 7-26 tablet by ity of tablet 00:00: mouth [place] 00 daily. [facility] Yes [id number] 1{tbl} Take 1 Univers ne 0.35 mg 7-26 tablet by ity of tablet 00:00: mouth [place] 00 daily. [facility] Yes [id number] 1{tbl} Take 1 Univers ne 0.35 mg 7-26 tablet by ity of tablet 00:00: mouth [place] 00 daily. [facility] Yes [id number] 1{tbl} Take 1 Univers ne 0.35 mg 7-26 tablet by ity of tablet 00:00: mouth [place] 00 daily. [facility] Yes [id number] 1{tbl} Take 1 Univers ne 0.35 mg 7-26 tablet by ity of tablet 00:00: mouth [place] 00 daily. [facility] Yes [id number] 1{tbl} Take 1 Univers ne 0.35 mg 7-26 tablet by ity of tablet 00:00: mouth [place] 00 daily. [facility] Yes [id number] 1{tbl} Take 1 Univers ne 0.35 mg 7-26 tablet by ity of tablet 00:00: mouth [place] 00 daily. [facility] Yes [id number] 1{tbl} Take 1 Univers ne 0.35 mg 7-26 tablet by ity of tablet 00:00: mouth [place] 00 daily. [facility] Yes [id number] 1{tbl} Take 1 Univers ne 0.35 mg 7-26 tablet by ity of tablet 00:00: mouth [place] 00 daily. [facility] Yes [id number] 1{tbl} Take 1 Univers ne 0.35 mg 7-26 tablet by ity of tablet 00:00: mouth [place] 00 daily. [facility]-0 Yes [id number] 1{tbl} Take 1 Univers ne 0.35 mg 7-26 tablet by ity of tablet 00:00: mouth [place] 00 daily. [facility] 0 Yes [id number] 1{tbl} Take 1 Univers ne 0.35 mg 7-26 tablet by ity of tablet 00:00: mouth [place] 00 daily. [facility] 0 Yes [id number] 1{tbl} Take 1 Univers ne 0.35 mg 7-26 tablet by ity of tablet 00:00: mouth [place] 00 daily. [facility] Branch [facility] Yes [id number] 1{tbl} Take 1 Univers ne 0.35 mg 7-26 tablet by ity of tablet 00:00: mouth [place] 00 daily. [facility] Branch [facility] Yes [id number] 1{tbl} Take 1 Univers ne 0.35 mg 7-26 tablet by ity of tablet 00:00: mouth [place] 00 daily. [facility] Branch levoFLOXaci 2018-0 Yes 500mg Take 1 [...] Branch hours as needed (PAIN). traMADOL [id number] Yes 50mg Take 1 Univ ers mg [...] Immunizations Ordered Filled Immunization Date Status Comments [facility] e Immunization Name Name Influenza Virus 2016-06-05 Completed Universit y of Vaccine Quad ID 00:00:00 [place] [facility] 18-64 Y[facility] Branch Influenza Virus 2016-06-05 Completed Universit y of Vaccine Quad ID 00:00:00 [place] [facility] 18-64 YRS Branch Influenza Virus 2016-06-05 Completed Universit y of Vaccine Quad ID 00:00:00 [place] [facility] ical 18-64 YRS Branch Influenza Virus [...] Universit y of Vaccine Quad ID 00:00:00 [place] [facility] 18-64 YRS Branch Influenza Virus 2016-06-05 Completed Universit y of Vaccine Quad ID 00:00:00 [place] [facility] 18-64 YRS Branch Influenza Virus 2016-06-05 Completed Universit y of Vaccine Quad ID 00:00:00 [place] [facility] 18-64 YRS Branch Influenza Virus 2016-06-05 Completed Universit y of Vaccine Quad ID 00:00:00 [facility] ical 18-64 YRS Branch Influenza Virus 2016-06-05 Completed Universit y of Vaccine Quad ID 00:00:00 [facility] ical 18-64 YRS Branch Influenza Virus 2016-06-05 Completed Universit y of Vaccine Quad ID 00:00:00 [place] [facility] 18-64 YRS Branch Influenza Virus 2016-06-05 Completed Universit y of Vaccine Quad ID 00:00:00 [facility] ical 18-64 YRS Branch Influenza Virus 2016-06-05 Completed Universit y of Vaccine Quad ID 00:00:00 [facility] ical 18-64 YRS Branch Influenza Virus 2016-06-05 Completed Universit y of Vaccine Quad ID 00:00:00 [facility] ical 18-64 YRS Branch Influenza Virus 2016-06-05 Completed Universit y of Vaccine Quad ID 00:00:00 [facility] ical 18-64 YRS Branch Influenza Virus 2016-06-05 Completed Universit y of Vaccine Quad ID 00:00:00 [facility] ical 18-64 YRS Branch Influenza Virus 2016-06-05 Completed Universit y of Vaccine Quad ID 00:00:00 [facility] ical 18-64 YRS Branch Influenza Virus 2016-06-05 Completed Universit y of Vaccine Quad ID 00:00:00 [facility] ical 18-64 YRS Branch Influenza Virus 2016-06-05 Completed Universit y of Vaccine Quad ID 00:00:00 [facility] ical 18-64 YRS Branch Influenza Virus 2016-06-05 Completed Universit y of Vaccine Quad ID 00:00:00 [place] [facility] 18-64 YRS Branch Influenza Virus 2016-06-05 Completed Universit y of Vaccine Quad ID 00:00:00 [place] [facility] ical 18-64 YRS Branch Influenza Virus 2016-06-05 Completed Universit y of Vaccine Quad ID 00:00:00 [facility] ical 18-64 YRS Branch Influenza Virus 2016-06-05 Completed Universit y of Vaccine Quad ID 00:00:00 [facility] ical 18-64 YRS Branch Influenza Virus 2016-06-05 Completed Universit y of Vaccine Quad ID 00:00:00 [facility] ical 18-64 YRS Branch Influenza Virus 2016-06-05 Completed Universit y of Vaccine Quad ID 00:00:00 [facility] ical 18-64 YRS Branch Influenza Virus 2016-06-05 Completed Universit y of Vaccine Quad ID 00:00:00 [place] [facility] 18-64 YRS Branch Vital Signs Vital Name Observation Time Observation Value Comments Source Systolic blood 2021-05-17 14:44:00 153 mm[Hg] Univer sity of pressure [facility] Diastolic blood 2021-05-17 14:44:00 106 mm[Hg] Unive rsity of pressure [facility] Heart rate 2021-05-17 14:44:00 110 /min [facility]i ty of [facility] [facility] Body temperature 2021-05-17 14:44:00 36.83 Jessica [facility] ersity of [facility] Respiratory rate 2021-05-17 14:44:00 18 /min Univ ersity of [facility] Body weight 2021-05-17 14:44:00 54.432 kg Universi ty [facility] [place] [facility] BMI 2021-05-17 14:44:00 21.95 kg/m2 Universi ty of [facility] Oxygen saturation in 2021-05-17 14:44:00 99 /min University of Arterial blood by [place] [employer] [facility] Pulse oximetry Branch Systolic blood 2021-05-13 21:05:00 132 mm[Hg] Univer sity of pressure [facility] Diastolic blood 2021-05-13 21:05:00 89 mm[Hg] Unive rsity of pressure [facility] Heart rate 2021-05-13 21:05:00 113 /min Universi ty of [facility] Body temperature 2021-05-13 21:05:00 37.28 [facility] ersity [facility] Respiratory rate 2021-05-13 21:05:00 22 /min Univ ersity [facility] Oxygen saturation in 2021-05-13 21:05:00 97 /min University of Arterial blood by [facility] Pulse oximetry Branch Body height 2021-05-13 20:16:00 157.5 cm [facility] [place] [facility] Body weight 2021-05-13 20:16:00 54.432 kg [facility] [place] [facility] BMI 2021-05-13 20:16:00 21.95 kg/m2 [facility] [place] [facility] Systolic blood 2021-05-09 23:58:00 135 mm[Hg] Univer sity of pressure [place] [facility] Diastolic blood 2021-05-09 23:58:00 91 mm[Hg] Unive rsity of pressure [place] [facility] Heart rate 2021-05-09 23:58:00 103 /min [facility] [place] [facility] Body temperature 2021-05-09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
--- NOTE | 2021-08-16 21:56 | EDPHYS ---
Physician Documentation [facility] Name: Chelsea Sapp Age: 56 yrs Sex: Female : 1965 Arrival Date: 08/16/2021 Time: 17:44 Bed Treatment Private MD: ED Physician Ino Sun HPI: 08/16 21:53 This 56 yrs old Female presents to ER via Ambulatory with complaints of Facial jr8 Swelling. 21:53 This is a 56-year-old female that presented to emergency room with sudden onset of left jr8 lower jaw swelling that started yesterday. Patient stated that it is not improved and is very painful. Denies any other symptoms at this time. Does have a history of poor dentition.. Historical: - Allergies: 18:39 No Known Allergies; iw - PMHx: 18:39 None; iw ROS: 21:53 Eyes: Negative for injury, pain, redness, and discharge, Neck: Negative for injury, jr8 pain, and swelling, Cardiovascular: Negative for chest pain, palpitations, and edema, Respiratory: Negative for shortness of breath, cough, wheezing, and pleuritic chest pain, Abdomen/GI: Negative for abdominal pain, nausea, vomiting, diarrhea, and constipation, Back: Negative for injury and pain, MS/Extremity: Negative for injury and deformity, Skin: Negative for injury, rash, and discoloration, Neuro: Negative for headache, weakness, numbness, tingling, and seizure. 21:53 ENT: Positive for dental pain, Gum pain Exam: 21:53 Neck: Trachea midline, no thyromegaly or masses palpated, and no cervical jr8 lymphadenopathy. Supple, full range of motion without nuchal rigidity, or vertebral point tenderness. No Meningismus. Cardiovascular: Regular rate and rhythm with a normal S1 and S2. No gallops, murmurs, or rubs. Normal PMI, no JVD. No pulse deficits. Respiratory: Lungs have equal breath sounds bilaterally, clear to auscultation and percussion. No rales, rhonchi or wheezes noted. No increased work of breathing, no retractions or nasal flaring. Skin: Warm, dry with normal turgor. Normal color with no rashes, no lesions, and no evidence of cellulitis. MS/ Extremity: Pulses equal, no cyanosis. Neurovascular intact. Full, normal range of motion. Neuro: Awake and alert, GCS 15, oriented to person, place, time, and situation. Cranial nerves II-XII grossly intact. Motor strength 5/5 in all extremities. Sensory grossly intact. 21:53 Head/face: Noted is swelling, that is mild, of the left jaw. 21:53 ENT: Mouth: Lips: moist, Oral mucosa: pink and intact, moist, Gums: reddened, on the lower left first molar and lower left second bicuspid, Posterior pharynx: Airway: patent, Tonsils: are normal in appearance, Uvula: midline, non-edematous, no erythema, swelling, is not appreciated, erythema, is not appreciated, Dental exam: dental caries, that is moderate, diffusely, fractured teeth are noted, specifically the lower left second bicuspid (#20), pain, that is moderate, specifically in the lower left second bicuspid (#20). Vital Signs: 18:38 BP 134 / 97; Pulse 105; Resp 16; Temp 97.8; Pulse Ox 100% on R/A; Weight 58.97 kg; iw Height 5 ft. 3 in. (160.02 cm); 21:20 BP 155 / 94; Pulse 94; Resp 16; Temp 98.0; Pulse Ox 100% ; lt3 18:38 Body Mass Index 23.03 (58.97 kg, 160.02 cm) iw MDM: 21:18 Patient medically screened. [facility] 21:55 Data reviewed: vital signs, nurses notes, and as a result, I will discharge patient. jr8 Data interpreted: Pulse oximetry: on room air is 100 %. Interpretation: normal. Counseling: I had a detailed discussion with the patient and/or guardian regarding: the historical points, exam findings, and any diagnostic results supporting the discharge/admit diagnosis, the need for outpatient follow up, a dentist, to return to the emergency department if symptoms worsen or persist or if there are any questions or concerns that arise at home. Administered Medications: 22:10 Drug: HYDROcodone-acetaminophen 5 mg-325 mg 1 tabs {Note: RASS 0.} Route: PO; bb 22:21 Follow up: Response: Medication administered at discharge. bb 22:10 Drug: Augmentin (Amoxicillin-Clavulanate) 875 mg Route: PO; bb 22:21 Follow up: Response: Medication administered at discharge. bb 22:21 Drug: Ketorolac 15 mg Route: IM; Site: right gluteus; bb 22:21 Follow up: Response: Medication administered at discharge. bb Disposition: 08/17 06:18 Co-signature as Attending Physician, Ino Sun MD. [email or web address] Disposition Summary: 08/16/21 21:56 Discharge Ordered Location: Home jr8 Problem: new jr8 Symptoms: have improved jr8 Condition: Stable jr8 Diagnosis - Periapical abscess without sinus jr8 Followup: jr8 - With: Private Physician - When: 1 week - Reason: Recheck today's complaints, Continuance of care, Re-evaluation by your physician Discharge Instructions: - Discharge Summary Sheet jr8 - Dental Abscess jr8 - Dental Pain jr8 - Root Canal jr8 Forms: - Medication Reconciliation Form jr8 - Thank You Letter jr8 - Antibiotic Education jr8 - Prescription Opioid Use jr8 Prescriptions: - Augmentin 875-125 mg Oral Tablet - take 1 tablet by ORAL route every 12 hours for 10 days; 20 tablet; Refills: 0, jr8 Product Selection Permitted - Peridex 0.12 % Mucous Membrane mouthwash - place 15 milliliter by MUCOUS MEMBRANE route 2 times per day after brushing jr8 teeth, swish in mouth for 30 seconds then spit out; 1 bottle; Refills: 0, Product Selection Permitted - Ibuprofen 800 mg Oral Tablet - take 1 tablet by ORAL route every 12 hours As needed take with food; 20 tablet; jr8 Refills: 0, Product Selection Permitted Signatures: Augusta Flores RN RN bb Williams, Irene, RN RN iw Roszak, Josh, PA PA [facility] Ino Sun MD MD mh7
--- NOTE | 2021-08-16 21:56 | ER ---
Nurse's Notes [facility] Name: Chelsea Sapp Age: 56 yrs Sex: Female : 1965 Arrival Date: 08/16/2021 Time: 17:44 Bed Treatment Private MD: Diagnosis: Periapical abscess without sinus Presentation: 08/16 18:38 Chief complaint: Patient states: left jaw swelling since yesterday , has wisdom teeth iw that came out on that side, has been on steroid since last week from an allergic reaction. Coronavirus screen: At this time, the client does not indicate any symptoms associated with coronavirus-19. Ebola Screen: Patient negative for fever greater than or equal to 101.5 degrees Fahrenheit, and additional compatible Ebola Virus Disease symptoms Patient denies exposure to infectious person. Patient denies travel to an Ebola-affected area in the 21 days before illness onset. No symptoms or risks identified at this time. Initial Sepsis Screen: Does the patient meet any 2 criteria? No. Patient's initial sepsis screen is negative. Does the patient have a suspected source of infection? No. Patient's initial sepsis screen is negative. Risk Assessment: Do you want to hurt yourself or someone else? Patient reports no desire to harm self or others. Onset of symptoms was August 15, 2021. 18:38 Method Of Arrival: Ambulatory iw 18:38 Acuity: CAMERON 4 iw Historical: - Allergies: 18:39 No Known Allergies; iw - PMHx: 18:39 None; iw Screenin:22 Abuse screen: Denies threats or abuse. Nutritional screening: No deficits noted. bb Tuberculosis screening: No symptoms or risk factors identified. Fall Risk None identified. Assessment: 22:21 Reassessment: Patient is alert, oriented x 3, equal unlabored respirations, skin bb warm/dry/pink. pt seen by this RN at discharge pt verbalized understanding of and agrees to plan of care discharge instructions given pt ambulated with steady gait to exit accompanied by family. Vital Signs: 18:38 BP 134 / 97; Pulse 105; Resp 16; Temp 97.8; Pulse Ox 100% on R/A; Weight 58.97 kg; iw Height 5 ft. 3 in. (160.02 cm); 21:20 BP 155 / 94; Pulse 94; Resp 16; Temp 98.0; Pulse Ox 100% ; lt3 18:38 Body Mass Index 23.03 (58.97 kg, 160.02 cm) ED Course: 17:44 Patient arrived in ED. mr 18:39 Triage completed. iw 21:18 Bjorn Vora PA is PHCP. jr8 21:18 Ino Sun MD is Attending Physician. jr8 22:22 Patient has correct armband on for positive identification. bb 22:22 No provider procedures requiring assistance completed. Patient did not have IV access bb during this emergency room visit. Administered Medications: 22:10 Drug: HYDROcodone-acetaminophen 5 mg-325 mg 1 tabs {Note: RASS 0.} Route: PO; bb 22:21 Follow up: Response: Medication administered at discharge. bb 22:10 Drug: Augmentin (Amoxicillin-Clavulanate) 875 mg Route: PO; bb 22:21 Follow up: Response: Medication administered at discharge. bb 22:21 Drug: Ketorolac 15 mg Route: IM; Site: right gluteus; bb 22:21 Follow up: Response: Medication administered at discharge. bb Outcome: 21:56 Discharge ordered by MD. jr8 22:22 Discharged to home ambulatory, with family. bb 22:22 Condition: stable 22:22 Discharge instructions given to patient, Instructed on discharge instructions, follow up and referral plans. medication usage, Demonstrated understanding of instructions, follow-up care, medications, Prescriptions given X 3. 22:23 Patient left the ED. bb Signatures: Leydi Bateman mr FloresAugusta RN RN bb Veronica Landaverde RN RN Bjorn Vora PA PA jr8 Dana Dempsey lt3
[2021-08-16] MEDS ORDERED: HYDROCODONE/APAP 5/325 MG TAB ONE (22:00)
[2021-08-16] MEDS ORDERED: KETOROLAC 30 MG/ML INJ ONE (22:01)
[2021-08-16] MEDS ORDERED: AMOX/K CLAV 875 MG TAB ONE (22:01)
[2021-08-16 22:28] VITALS: O2SAT 100
[2021-08-16 22:29] VITALS: BP 155/94; TEMP 98
== END 2021-08-16 22:23 | disposition home or self-care (01) ==
LOC: ER 17:41
DX: K04.7 Periapical abscess without sinus (principal)
CPT/HCPCS: 96372; 99283

== ENCOUNTER 2022-01-16 07:58 | Emergency (ER) | payer OTHER, SELFPAY ==
--- OUTSIDE RECORDS SUMMARY | 2022-01-16 08:04 | XMS REPORT | Continuity of Care Document ---
:1965 Author Organization [facility] t Address [address] [place] [address] Care Team Providers Name Role Phone Pcp, [...] Number Effective Date Expiration Date S fan [facility] [id number] 2020 HEALTH 00:00:00 Problems Condition Condition Condition Status Onset Resolution [...] nivers exam exam 03-10 ity of 00:00: [place] 00 Medical Branch Contracept Contracept Disease Active 2019-0 U nivers tino tino 03-10 [place]y of management [place] Irregular Irregular Disease Active Overview: Univers menses menses 03-10 Formattin ity of 00:00: g of this [place] note Medical might be Branch different from the original. Needs emb History of History of Disease Active 2019- U nivers tubal tubal 03-10 ity of ligation ligation 00:00: [place] 00 Medical Branch No known No known Disease Unive rs active active ity of problems problems [facility] [place] [facility] Allergies, Adverse Reactions, Alerts Allergy Allergy Status Severity Reaction(s) Onset Inactive Treating Comm ents Source Name Type Date Date Clinician NO KNOWN Drug Active Univers ALLERGIE Class ity of S [facility] [place] [facility] Social History Social Habit Start Date Stop Date Quantity Comments Source Exposure to Yes [facility] SARS-CoV-2 (event) Medica l Branch Tobacco use and 2019-04-26 2019-04-26 Never used [facility] [place] exposure 00:00:00 00:00:00 Medical Branch Alcohol intake 2019-04-26 2019-04-26 0 /d [facility] 00:00:00 00:00:00 [facility] Branch Sex [birth year] At [birth year] [facility] 00:00:00 00:00:00 Medical Branch Smoking Status Start Date Stop Date Source Never smoker [facility] Branch Medications Ordered Filled Start Stop Current Ordering Indication Dosage Frequency Signature Comments Components Source Medication Medication Date Date Medication? Clinician (SIG) Name Name ondansetron 2020-08- No 4mg 4 mg, Univ ers (ZOFRAN-ODT 005-17 Oral, ity of ) 16:00: 14:57 ONCE, 1 [place] disintegrat 00 :00 dose, On Medi dez ing tablet Sat Branch 4 mg 05/17/21 at 1100, Routine casirivimab 2020- No [id number] 1200mg 1,200 mg, Univers -imdevimab 05-13 Subcutaneo [...] Branch 05/09/21 at 1945, THOMAS ibuprofen Yes [id number] 600mg Take 1 Univers 600 mg 9-24 tablet by ity of tablet 00:00: mouth [place] 00 every 6 Medical (six) Branch hours as needed for Pain (scale 4-6). benzonatate Yes [id number] 100mg Take 1 Univers 100 mg 9-24 capsule by ity of capsule 00:00: mouth 3 [place] 00 (three) Medical times Branch daily as needed for Cough. ondansetron Yes [id number] 4mg Take 1 Univers (ZOFRAN 9-24 tablet by ity of ODT) 4 mg 00:00: mouth [place] disintegrat 00 every 8 Medic al ing tablet (eight) Branch hours as needed for Nausea and Vomiting (N/V). ibuprofen 2021-0 Yes [id number] 600mg Take 1 Univers 600 mg 9-24 tablet by ity of tablet 00:00: mouth [place] 00 every 6 Medical (six) Branch hours as needed for Pain (scale 4-6). benzonatate 2021-0 Yes [id number] 100mg Take 1 Univers 100 mg 9-24 capsule by ity of capsule 00:00: mouth 3 [place] 00 (three) Medical times Branch daily as needed for Cough. ondansetron 2021-0 Yes [id number] 4mg Take 1 Univers (ZOFRAN 9-24 tablet by ity of ODT) 4 mg 00:00: mouth [place] disintegrat 00 every 8 Medic al ing tablet (eight) Branch hours as needed for Nausea and Vomiting (N/V). ibuprofen 2020-0 Yes [id number] 600mg Take 1 Univers 600 mg 9-24 tablet by ity of tablet 00:00: mouth [place] 00 every 6 Medical (six) Branch hours as needed for Pain (scale 4-6). benzonatate 1-0 Yes [id number] 100mg Take 1 Univers 100 mg 9-24 capsule by ity of capsule 00:00: mouth 3 [place] 00 (three) Medical times Branch daily as needed for Cough. ondansetron 2021-0 Yes [id number] 4mg Take 1 Univers (ZOFRAN 9-24 tablet by ity of ODT) 4 mg 00:00: mouth [place] disintegrat 00 every 8 Medic al ing tablet (eight) Branch hours as needed for Nausea and Vomiting (N/V). ibuprofen 2021-0 Yes [id number] 600mg Take 1 Univers 600 mg 9-24 tablet by ity of tablet 00:00: mouth [place] 00 every 6 Medical (six) Branch hours as needed for Pain (scale 4-6). benzonatate 2021-0 Yes [id number] 100mg Take 1 Univers 100 mg 9-24 capsule by ity of capsule 00:00: mouth 3 [place] 00 (three) Medical times Branch daily as needed for Cough. ondansetron 2021-0 Yes [id number] 4mg Take 1 Univers (ZOFRAN 9-24 tablet by ity of ODT) 4 mg 00:00: mouth [place] disintegrat 00 every 8 Medic al ing tablet (eight) Branch hours as needed for Nausea and Vomiting (N/V). ibuprofen 2021-0 Yes [id number] 600mg Take 1 Univers 600 mg 9-24 tablet by ity of tablet 00:00: mouth [place] 00 every 6 Medical (six) Branch hours as needed for Pain (scale 4-6). benzonatate 2021-0 Yes [id number] 100mg Take 1 Univers 100 mg 9-24 capsule by ity of capsule 00:00: mouth 3 [place] 00 (three) Medical times Branch daily as needed for Cough. ondansetron 2021-0 Yes [id number] 4mg Take 1 Univers (ZOFRAN 9-24 tablet by ity of ODT) 4 mg 00:00: mouth [place] disintegrat 00 every 8 Medic al ing tablet (eight) Branch hours as needed for Nausea and Vomiting (N/V). ibuprofen 1-0 Yes [id number] 600mg Take 1 Univers 600 mg 9-24 tablet by ity of tablet 00:00: mouth [place] 00 every 6 Medical (six) Branch hours as needed for Pain (scale 4-6). benzonatate 2021-0 Yes [id number] 100mg Take 1 Univers 100 mg 9-24 capsule by ity of capsule 00:00: mouth 3 [place] 00 (three) Medical times Branch daily as needed for Cough. ondansetron 2021-0 Yes [id number] 4mg Take 1 Univers (ZOFRAN 9-24 tablet by ity of ODT) 4 mg 00:00: mouth [place] disintegrat 00 every 8 Medic al ing tablet (eight) Branch hours as needed for Nausea and Vomiting (N/V). ibuprofen 2021-0 Yes [id number] 600mg Take 1 Univers 600 mg 9-24 tablet by ity of tablet 00:00: mouth [place] 00 every 6 Medical (six) Branch hours as needed for Pain (scale 4-6). benzonatate 2021-0 Yes [id number] 100mg Take 1 Univers 100 mg 9-24 capsule by ity of capsule 00:00: mouth 3 [place] 00 (three) Medical times Branch daily as needed for Cough. ondansetron 2021-0 Yes [id number] 4mg Take 1 Univers (ZOFRAN 9-24 tablet by ity of ODT) 4 mg 00:00: mouth [place] disintegrat 00 every 8 Medic al ing tablet (eight) Branch hours as needed for Nausea and Vomiting (N/V). iopamidol 2020- No [id number] 100mL 100 mL, Univers (ISOVUE 04-02 Intravenou [...] 04/02/21 at 0830, STAT dicyclomine 2020-0 Yes [id number] 10mg Take 1 Univers 10 mg 8-18 capsule by ity of capsule 00:00: mouth [place] 00 every 8 Medical (eight) Branch hours as needed for Abdominal pain. dicyclomine 2020-0 Yes [id number] 10mg Take 1 Univers 10 mg 8-18 capsule by ity of capsule 00:00: mouth [place] 00 every 8 Medical (eight) Branch hours as needed for Abdominal pain. dicyclomine 202-0 Yes [id number] 10mg Take 1 Univers 10 mg 8-18 capsule by ity of capsule 00:00: mouth [place] 00 every 8 Medical (eight) Branch hours as needed for Abdominal pain. dicyclomine 2020-0 Yes [id number] 10mg Take 1 Univers 10 mg 8-18 capsule by ity of capsule 00:00: mouth [place] 00 every 8 Medical (eight) Branch hours as needed for Abdominal pain. dicyclomine Yes [id number] 10mg Take 1 Univers 10 mg 8-18 capsule by ity of capsule 00:00: mouth [place] 00 every 8 Medical (eight) Branch hours as needed for Abdominal pain. dicyclomine 0 Yes [id number] 10mg Take 1 Univers 10 mg 8-18 capsule by ity of capsule 00:00: mouth [place] 00 every 8 Medical (eight) Branch hours as needed for Abdominal pain. dicyclomine 0 Yes [id number] 10mg Take 1 Univers 10 mg 8-18 capsule by ity of capsule 00:00: mouth [place] 00 every 8 Medical (eight) Branch hours as needed for Abdominal pain. dicyclomine 0 Yes [id number] 10mg Take 1 Univers 10 mg 8-18 capsule by ity of capsule 00:00: mouth [place] 00 every 8 Medical (eight) Branch hours as needed for Abdominal pain. cephALEXin 2020- No [id number] 500mg Take 1 Univers (KEFLEX) 8-18 -26 [...] Fri Branch 12/13/20 at 2300, THOMAS
Fa culty member approving Restricted medication : CHAN JURADO methocarbam 2021-0 Yes [id number] 500mg Take 1 Univers oL 4-30 tablet by ity of (ROBAXIN) 00:00: mouth 4 [place] 500 mg 00 (four) Medical tablet times Branch daily as needed for Pain (scale 7-10). Diclofenac 2020-0 Yes [id number] Apply to Univers Sodium 4-30 area(s) 2 ity of (VOLTAREN) 00:00: (two) [place] 1 % gel 00 times Medical daily. Branch traMADoL 50 2020-0 Yes [id number] 50mg Take 1 Univ ers mg tablet 4-30 tablet by ity o f 00:00: mouth [place] 00 every 6 Medical (six) Branch hours as needed for Pain (scale 7-10). Indication s: acute pain methocarbam 2020-0 Yes [id number] 500mg Take 1 Univers oL 4-30 tablet by ity of (ROBAXIN) 00:00: mouth 4 [place] 500 mg 00 (four) Medical tablet times Branch daily as needed for Pain (scale 7-10). Diclofenac 2020-0 Yes [id number] Apply to Univers Sodium 4-30 area(s) 2 ity of (VOLTAREN) 00:00: (two) [place] 1 % gel 00 times Medical daily. Branch traMADoL 50 2020-0 Yes [id number] 50mg Take 1 Univ ers mg tablet 4-30 tablet by ity o f 00:00: mouth [place] 00 every 6 Medical (six) Branch hours as needed for Pain (scale 7-10). Indication s: acute pain methocarbam 2020-0 Yes [id number] 500mg Take 1 Univers oL 4-30 tablet by ity of (ROBAXIN) 00:00: mouth 4 [place] 500 mg 00 (four) Medical tablet times Branch daily as needed for Pain (scale 7-10). Diclofenac 1-0 Yes [id number] Apply to Univers Sodium 4-30 area(s) 2 ity of (VOLTAREN) 00:00: (two) [place] 1 % gel 00 times Medical daily. Branch traMADoL 50 1-0 Yes [id number] 50mg Take 1 Univ ers mg tablet 4-30 tablet by ity o f 00:00: mouth [place] 00 every 6 Medical (six) Branch hours as needed for Pain (scale 7-10). Indication s: acute pain methocarbam 2021-0 Yes [id number] 500mg Take 1 Univers oL 4-30 tablet by ity of (ROBAXIN) 00:00: mouth 4 [place] 500 mg 00 (four) Medical tablet times Branch daily as needed for Pain (scale 7-10). Diclofenac 2021-0 Yes [id number] Apply to Univers Sodium 4-30 area(s) 2 ity of (VOLTAREN) 00:00: (two) [place] 1 % gel 00 times Medical daily. Branch traMADoL 50 2020-0 Yes [id number] 50mg Take 1 Univ ers mg tablet 4-30 tablet by ity o f 00:00: mouth [place] 00 every 6 Medical (six) Branch hours as needed for Pain (scale 7-10). Indication s: acute pain methocarbam 2020-0 Yes [id number] 500mg Take 1 Univers oL 4-30 tablet by ity of (ROBAXIN) 00:00: mouth 4 [place] 500 mg 00 (four) Medical tablet times Branch daily as needed for Pain (scale 7-10). Diclofenac 2020-0 Yes [id number] Apply to Univers Sodium 4-30 area(s) 2 ity of (VOLTAREN) 00:00: (two) [place] 1 % gel 00 times Medical daily. Branch traMADoL 50 2020-0 Yes [id number] 50mg Take 1 Univ ers mg tablet 4-30 tablet by ity o f 00:00: mouth [place] 00 every 6 Medical (six) Branch hours as needed for Pain (scale 7-10). Indication s: acute pain methocarbam 2020-0 Yes [id number] 500mg Take 1 Univers oL 4-30 tablet by ity of (ROBAXIN) 00:00: mouth 4 [place] 500 mg 00 (four) Medical tablet times Branch daily as needed for Pain (scale 7-10). Diclofenac 2021-0 Yes [id number] Apply to Univers Sodium 4-30 area(s) 2 ity of (VOLTAREN) 00:00: (two) [place] 1 % gel 00 times Medical daily. Branch traMADoL 50 2021-0 Yes [id number] 50mg Take 1 Univ ers mg tablet 4-30 tablet by ity o f 00:00: mouth [place] 00 every 6 Medical (six) Branch hours as needed for Pain (scale 7-10). Indication s: acute pain methocarbam 2021-0 Yes [id number] 500mg Take 1 Univers oL 4-30 tablet by ity of (ROBAXIN) 00:00: mouth 4 [place] 500 mg 00 (four) Medical tablet times Branch daily as needed for Pain (scale 7-10). Diclofenac 2020-0 Yes [id number] Apply to Univers Sodium 4-30 area(s) 2 ity of (VOLTAREN) 00:00: (two) [place] 1 % gel 00 times Medical daily. Branch traMADoL 50 2020-0 Yes [id number] 50mg Take 1 Univ ers mg tablet 4-30 tablet by ity o f 00:00: mouth [place] 00 every 6 Medical (six) Branch hours as needed for Pain (scale 7-10). Indication s: acute pain methocarbam 2020-0 Yes [id number] 500mg Take 1 Univers oL 4-30 tablet by ity of (ROBAXIN) 00:00: mouth 4 [place] 500 mg 00 (four) Medical tablet times Branch daily as needed for Pain (scale 7-10). Diclofenac 2020-0 Yes [id number] Apply to Univers Sodium 4-30 area(s) 2 ity of (VOLTAREN) 00:00: (two) [place] 1 % gel 00 times Medical daily. Branch traMADoL 50 2020-0 Yes [id number] 50mg Take 1 Univ ers mg tablet 4-30 tablet by ity o f 00:00: mouth [place] 00 every 6 Medical (six) Branch hours as needed for Pain (scale 7-10). Indication s: acute pain methocarbam 2020-0 Yes [id number] 500mg Take 1 Univers oL 4-30 tablet by ity of (ROBAXIN) 00:00: mouth 4 [place] 500 mg 00 (four) Medical tablet times Branch daily as needed for Pain (scale 7-10). Diclofenac 2020-0 Yes [id number] Apply to Univers Sodium 4-30 area(s) 2 ity of (VOLTAREN) 00:00: (two) [place] 1 % gel 00 times Medical daily. Branch traMADoL 50 2020-0 Yes [id number] 50mg Take 1 Univ ers mg tablet 4-30 tablet by ity o f 00:00: mouth [place] 00 every 6 Medical (six) Branch hours as needed for Pain (scale 7-10). Indication s: acute pain ketorolac 2020-0 2020- No 30mg 30 mg, Unive rs (TORADOL) 12-05-22 Slow IV ity of injection 18:45: 17:44 Push, [place] 30 mg 00 :00 ONCE, 1 Medical dose, [facility] 12/05/20 at 1345, THOMAS
Fa [facility] member approving Restricted medication : Julia CLINTON nitroglycer 2020- No .5[in_u 0.5 Inch, Univers in (NITROL) 12-05 s] Transderma i ty of 2 % 16:45: 15:51 l (Apply [place] ointment 00 :00 To Skin), Medica l 0.5 Inch ONCE, 1 Branch dose, [facility] 12/05/20 at 1145, THOMAS aspirin 2020- No 324mg 324 mg, Unive rs chewable 12-05 Oral, ity of tablet 324 16:45: 15:51 ONCE, 1 [place] as mg 00 :00 dose, [facility] 12/05/20 at Branch 1145, Routine multivitami 2020- No [id number] 1{tbl} Take 1 Univers n tablet 8-15 08-15 tablet by ity o f 00:00: 04:59 mouth [place] 00 :00 daily. [facility] multivitami 2020- No [id number] 1{tbl} Take 1 Univers n tablet 8-15 08-15 tablet by ity o f 00:00: 04:59 mouth [place] 00 :00 daily. [facility] multivitami 2020- No [id number] 1{tbl} Take 1 Univers n tablet 8-15 08-15 tablet by ity o f 00:00: 04:59 mouth [place] 00 :00 daily. [facility] multivitami 2020- No [id number] 1{tbl} Take 1 Univers n tablet 8-15 08-15 tablet by ity o f 00:00: 04:59 mouth [place] 00 :00 daily. [facility] multivitami 2020- No [id number] 1{tbl} Take 1 Univers n tablet 8-15 08-15 tablet by ity o f 00:00: 04:59 mouth [place] 00 :00 daily. [facility] multivitami 2020- No [id number] 1{tbl} Take 1 Univers n tablet 8-15 08-15 tablet by ity o f 00:00: 04:59 mouth [place] 00 :00 daily. Medical Branch multivitami 2020- No [id number] 1{tbl} Take 1 Univers n tablet 8-15 08-15 tablet by ity o f 00:00: 04:59 mouth [place] 00 :00 daily. [facility] Branch multivitami 2020- No [id number] 1{tbl} Take 1 Univers n tablet 8-15 08-15 tablet by ity o f 00:00: 04:59 mouth [place] 00 :00 daily. Medical Branch ibuprofen 2019- No [id number] 600mg Take 3 Univers 200 mg 8-15 08-19 tablets by ity of tablet 00:00: 04:59 mouth [place] 00 :00 every 6 Medical (six) Branch hours as needed for Pain (scale 4-6) for up to 3 days. ibuprofen 2019- No [id number] 600mg Take 3 Univers 200 mg 8-15 08-19 tablets by ity of tablet 00:00: 04:59 mouth [place] 00 :00 every 6 Medical (six) Branch hours as needed for Pain (scale 4-6) for up to 3 days. metroNIDAZO 2018- 2019- No [id number] 2000mg Take 4 Univers LE 500 mg 8-08 23-02 tablets by ity of tablet 00:00: 04:59 mouth [place] 00 :00 now for 1 Medical dose. [place] metroNIDAZO 2019- No [id number] 2000mg Take 4 Univers LE 500 mg 8- 08-02 tablets by ity of tablet 00:00: 04:59 mouth [place] 00 :00 now for 1 Medical dose. [place] norethindro Yes [id number] 1{tbl} Take 1 Univers ne 0.35 mg 7-26 tablet by ity of tablet 00:00: mouth [place] 00 daily. Medical Branch norethindro Yes [id number] 1{tbl} Take 1 Univers ne 0.35 mg 7-26 tablet by ity of tablet 00:00: mouth [place] 00 daily. [facility] Branch norethindro Yes [id number] 1{tbl} Take 1 Univers ne 0.35 mg 7-26 tablet by ity of tablet 00:00: mouth [place] 00 daily. [facility] Branch norethindro Yes [id number] 1{tbl} Take 1 Univers ne 0.35 mg 7-26 tablet by ity of tablet 00:00: mouth [place] 00 daily. [facility] Yes [id number] 1{tbl} Take 1 Univers ne 0.35 mg 7-26 tablet by ity of tablet 00:00: mouth [place] 00 daily. [facility] Yes [id number] 1{tbl} Take 1 Univers ne 0.35 mg 7-26 tablet by ity of tablet 00:00: mouth [place] 00 daily. [facility] Yes [id number] 1{tbl} Take 1 Univers ne 0.35 mg 7-26 tablet by ity of tablet 00:00: mouth [place] 00 daily. [facility] Yes [id number] 1{tbl} Take 1 Univers ne 0.35 mg 7-26 tablet by ity of tablet 00:00: mouth [place] 00 daily. [facility] Yes [id number] 1{tbl} Take 1 Univers ne 0.35 mg 7-26 tablet by ity of tablet 00:00: mouth [place] 00 daily. [facility] Yes [id number] 1{tbl} Take 1 Univers ne 0.35 mg 7-26 tablet by ity of tablet 00:00: mouth [place] 00 daily. [facility] Yes [id number] 1{tbl} Take 1 Univers ne 0.35 mg 7-26 tablet by ity of tablet 00:00: mouth [place] 00 daily. [facility] Yes [id number] 1{tbl} Take 1 Univers ne 0.35 mg 7-26 tablet by ity of tablet 00:00: mouth [place] 00 daily. [facility] Yes [id number] 1{tbl} Take 1 Univers ne 0.35 mg 7-26 tablet by ity of tablet 00:00: mouth [place] 00 daily. [facility] Yes [id number] 1{tbl} Take 1 Univers ne 0.35 mg 7-26 tablet by ity of tablet 00:00: mouth [place] 00 daily. [facility] Yes [id number] 1{tbl} Take 1 Univers ne 0.35 mg 7-26 tablet by ity of tablet 00:00: mouth [place] 00 daily. [facility] Yes [id number] 1{tbl} Take 1 Univers ne 0.35 mg 7-26 tablet by ity of tablet 00:00: mouth [place] 00 daily. [facility] Yes [id number] 1{tbl} Take 1 Univers ne 0.35 mg 7-26 tablet by ity of tablet 00:00: mouth [place] 00 daily. [facility] Yes [id number] 1{tbl} Take 1 Univers ne 0.35 mg 7-26 tablet by ity of tablet 00:00: mouth [place] 00 daily. [facility] Yes [id number] 1{tbl} Take 1 Univers ne 0.35 mg 7-26 tablet by ity of tablet 00:00: mouth [place] 00 daily. [facility] Yes [id number] 1{tbl} Take 1 Univers ne 0.35 mg 7-26 tablet by ity of tablet 00:00: mouth [place] 00 daily. [facility] Yes [id number] 1{tbl} Take 1 Univers ne 0.35 mg 7-26 tablet by ity of tablet 00:00: mouth [place] 00 daily. [facility] Yes [id number] 1{tbl} Take 1 Univers ne 0.35 mg 7-26 tablet by ity of tablet 00:00: mouth [place] 00 daily. [facility] Yes [id number] 1{tbl} Take 1 Univers ne 0.35 mg 7-26 tablet by ity of tablet 00:00: mouth [place] 00 daily. [facility] Yes [id number] 1{tbl} Take 1 Univers ne 0.35 mg 7-26 tablet by ity of tablet 00:00: mouth [place] 00 daily. [facility] Yes [id number] 1{tbl} Take 1 Univers ne 0.35 mg 7-26 tablet by ity of tablet 00:00: mouth [place] 00 daily. [facility] Yes [id number] 1{tbl} Take 1 Univers ne 0.35 mg 7-26 tablet by ity of tablet 00:00: mouth [place] 00 [facility]. [facility] [id number] 1{tbl} Take 1 Univers ne 0.35 mg 7-26 tablet by ity of tablet 00:00: mouth [place] 00 daily. Medical Branch [facility] 2019-0 Yes [id number] 1{tbl} Take 1 Univers ne 0.35 mg 7-26 tablet by ity of tablet 00:00: mouth [place] 00 daily. [facility] Yes [id number] 1{tbl} Take 1 Univers ne 0.35 mg 7-26 tablet by ity of tablet 00:00: mouth [place] 00 daily. Medical Branch [facility]orekent hospitalndro 2019-0 Yes [id number] 1{tbl} Take 1 Univers ne 0.35 mg 7-26 tablet by ity of tablet 00:00: mouth [place] 00 daily. [facility] Branch levoFLOXaci 2018-0 Yes 500mg [...] Branch hours as needed (PAIN). traMADOL 50 2020- No 50mg Take 1 Uni vers mg tablet - 04-30 tablet by ity of 00:00: 00:00 mouth [place] 00 :00 every 6 Medical (six) Branch hours as needed (PAIN). Immunizations Ordered Filled Immunization Date Status Comments [facility] Immunization Name Name Influenza Virus 2016-06-05 Completed Universit y of Vaccine Quad ID 00:00:00 [place] Med ical 18-64 YRS Branch Influenza Virus 2016-06-05 Completed Universit y of Vaccine Quad ID 00:00:00 [place] Med ical 18-64 YRS Branch Influenza Virus 2016-06-05 Completed Universit y of Vaccine Quad ID 00:00:00 [place] Med ical 18-64 YRS Branch Influenza Virus [...] Universit y of Vaccine Quad ID 00:00:00 [facility] ical 18-64 YRS Branch Influenza Virus 2016-06-05 Completed Universit y of Vaccine Quad ID 00:00:00 [facility] ical 18-64 YRS Branch Influenza Virus 2016-06-05 Completed Universit y of Vaccine Quad ID 00:00:00 [facility] ical 18-64 YRS Branch Influenza Virus 2016-06-05 Completed Universit y of Vaccine Quad ID 00:00:00 [place] Med ical 18-64 YRS Branch Influenza Virus 2016-06-05 Completed Universit y of Vaccine Quad ID 00:00:00 [facility] ical 18-64 YRS Branch Influenza Virus 2016-06-05 Completed Universit y of Vaccine Quad ID 00:00:00 [facility] ical 18-64 YRS Branch Influenza Virus 2016-06-05 Completed Universit y of Vaccine Quad ID 00:00:00 [facility] ical 18-64 YRS Branch Influenza Virus 2016-06-05 Completed Universit y of Vaccine Quad ID 00:00:00 [facility] ical 18-64 YRS Branch Influenza Virus 2016-06-05 Completed Universit y of Vaccine Quad ID 00:00:00 [facility] ical 18-64 YRS Branch Influenza Virus 2016-06-05 Completed Universit y of Vaccine Quad ID 00:00:00 [facility] ical 18-64 YRS Branch Influenza Virus 2016-06-05 Completed Universit y of Vaccine Quad ID 00:00:00 [facility] ical 18-64 YRS Branch Influenza Virus 2016-06-05 Completed Universit y of Vaccine Quad ID 00:00:00 [facility] ical 18-64 YRS Branch Influenza Virus 2016-06-05 Completed Universit y of Vaccine Quad ID 00:00:00 [place] Med ical 18-64 YRS Branch Influenza Virus 2016-06-05 Completed Universit y of Vaccine Quad ID 00:00:00 [facility] ical 18-64 YRS Branch Influenza Virus 2016-06-05 Completed Universit y of Vaccine Quad ID 00:00:00 [facility] ical 18-64 YRS Branch Influenza Virus 2016-06-05 Completed Universit y of Vaccine Quad ID 00:00:00 [facility] ical 18-64 YRS Branch Vital Signs Vital Name Observation Time Observation Value Comments Source Systolic blood 2021-05-17 14:44:00 153 mm[Hg] Univer sity of pressure [place] [facility] Diastolic blood 2021-05-17 14:44:00 106 mm[Hg] Unive rsity of pressure [place] [facility] Heart rate 2021-05-17 14:44:00 110 /min Universi ty of [facility] [place] [facility] Body temperature 2021-05-17 14:44:00 36.83 Jessica Univ ersity of [facility] Branch Respiratory rate 2021-05-17 14:44:00 18 /min Univ ersity of [place] [facility] Body weight 2021-05-17 14:44:00 54.432 kg Universi ty of [place] [facility] BMI 2021-05-17 14:44:00 21.95 kg/m2 Universi ty of [facility] [place] [facility] Oxygen saturation in 2021-05-17 14:44:00 99 /min University of Arterial blood by [place] [employer] Pulse oximetry Branch Systolic blood 2021-05-13 21:05:00 132 mm[Hg] Univer sity of pressure [place] [facility] Diastolic blood 2021-05-13 21:05:00 89 mm[Hg] Unive rsity of pressure [place] [facility] Heart rate 2021-05-13 21:05:00 113 /min Universi ty of [facility] Branch Body temperature 2021-05-13 21:05:00 37.28 Jessica Univ ersity of [facility] Branch Respiratory rate 2021-05-13 21:05:00 22 /min Univ ersity [facility] Oxygen saturation in 2021-05-13 21:05:00 97 /min University of Arterial blood by [place] [facility] P[facility] oximetry Branch Body height 2021-05-13 20:16:00 157.5 cm [facility] [place] [facility] Body weight 2021-05-13 20:16:00 54.432 kg [facility] [place] [facility] BMI 2021-05-13 20:16:00 21.95 kg/m2 [facility] [place] [facility] Systolic blood 2021-05-09 23:58:00 135 mm[Hg] Univer sity of pressure [place] [facility] Diastolic blood 2021-05-09 23:58:00 91 mm[Hg] Unive rsity of pressure [place] [facility] Heart rate 2021-05-09 23:58:00 103 /min [facility] [place] [facility] Body temperature 2021-05-09 23:58:00 37.5 Jessica [facility] [place] [facility] Respiratory rate 2021-05-09 23:58:00 19 /min [facility] [place] [facility] Oxygen saturation in 2021-05-09 23:58:00 99 /min [facility] of Arterial blood by [place] [facility] P[facility] oxim[facility] Branch Body weight 2021-05-09 22:45:00 56.7 kg [facility] [place] [facility] BMI 2021-05-09 22:45:00 22.86 kg/m2 [facility] [place] [facility] Systolic blood 2021-04-02 13:22:00 137 mm[Hg] [facility]iver [facility]ity [facility] [place] [facility] Diastolic blood 2021-04-02 13:22:00 91 [...] 100 /min University of Arterial blood by [place] [facility] Systolic blood 2020-12-14 04:14:00 125 mm[Hg] [facility]iver [facility] [place] [facility] Diastolic blood 2020-12-14 04:14:00 95 mm[Hg] Unive rsity of [facility] [place] [facility] Heart rate 2020-12-14 04:14:00 93 /min [facility] [place]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
[2022-01-16 08:29] LABS: Urine Blood Negative (Negative); Urine Glucose Negative (Negative); Urine Protein Negative (Negative); Urine Specific Gravity >=1.030 (1.005-1.030); Urine pH 5.5 (5.0-7.0)
[2022-01-16] MEDS ORDERED: NA CHLORIDE 0.9% 1,000 ML ONE (08:48)
[2022-01-16] MEDS ORDERED: ONDANSETRON 4 MG/2 ML VIAL ONE (08:48)
[2022-01-16 09:15] LABS: Absolute Lymphocytes (CBC) 1.9 K/uL (0.7-4.9); Hematocrit 40.1 % (36.0-45.0); Lymphocytes % 26.9 % (15.3-44.8); MPV 9.6 fL (7.6-11.3); RBC Red Blood Cell Count 4.64 M/uL (3.86-4.86)
[2022-01-16 09:33] LABS: Albumin 3.4 g/dL (3.4-5.0); Bilirubin Total 0.3 mg/dL (0.2-1.0); Potassium 3.8 mmol/L (3.5-5.1); Protein, Total 7.3 g/dL (6.4-8.2); Troponin High Sensitivity 3.5 pg/mL (<58.9)
--- NOTE | 2022-01-16 09:42 | ER ---
Nurse's Notes [facility] Name: Chelsea Sapp Age: 56 yrs Sex: Female : 1965 Arrival Date: 01/16/2022 Time: 08:02 Bed 13 Private MD: Diagnosis: Vomiting;Abdominal tenderness Presentation: 01/16 08:14 Chief complaint: Patient states: patient states she vomited X's 1 time this morning. no vg1 other complaints are had by the patient at this time. Coronavirus screen: At this time, the client does not indicate any symptoms associated with coronavirus-19. Ebola Screen: No symptoms or risks identified at this time. Initial Sepsis Screen: Does the patient meet any 2 criteria? No. Patient's initial sepsis screen is negative. Does the patient have a suspected source of infection? No. Patient's initial sepsis screen is negative. Risk Assessment: Do you want to hurt yourself or someone else? Patient reports no desire to harm self or others. Onset of symptoms was January 16, 2022. 08:14 Method Of Arrival: Ambulatory [facility] 08:14 Acuity: CAMERON 4 vg1 Triage Assessment: 08:16 General: Appears in no apparent distress. Behavior is calm, cooperative. Pain: Denies vg1 pain. Neuro: Level of Consciousness is awake, alert, obeys commands, Oriented to person, place, time, situation, Moves all extremities. Gait is steady, Speech is normal. Cardiovascular: Patient's skin is warm and dry. Respiratory: Airway is patent Respiratory effort is even, unlabored, Respiratory pattern is regular, symmetrical. GI: Reports vomiting, since one time this morning. 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 - Social history:: Smoking status: Patient denies any tobacco usage or history of. Screenin:17 Abuse screen: Denies threats or abuse. Nutritional screening: No deficits noted. vg1 Tuberculosis screening: No symptoms or risk factors identified. Fall Risk None identified. Assessment: 08:21 Reassessment: patient provided with urine specimen cup and education on proper urine ap3 collection. patient verbalized understanding. 09:07 Reassessment: Patient and/or family updated on plan of care and expected duration. Pain ap3 level reassessed. Patient is alert, oriented x 3, equal unlabored respirations, skin warm/dry/pink. GI: Reports nausea, vomiting. Vital Signs: 08:14 BP 138 / 95; Pulse 96; Resp 16; Temp 97.7; Pulse Ox 100% ; Weight 61.23 kg; Height 5 vg1 ft. 1 in. (154.94 cm); 09:07 BP 150 / 35; Pulse 90; Pulse Ox 100% ; ap3 08:14 Body Mass Index 25.51 (61.23 kg, 154.94 cm) vg1 ED Course: 08:02 Patient arrived in ED. rg4 08:03 Simón Pederson MD is Attending Physician. aylin 08:14 Morenita Peterson, RN is Primary Nurse. vg1 08:16 Triage completed. vg1 08:17 Patient has correct armband on for positive identification. Bed in low position. Call vg1 light in reach. Side rails up X 1. Pulse ox on. NIBP on. Door closed. Noise minimized. 08:18 Arm band placed on right wrist. vg1 08:54 Inserted saline lock: 20 gauge in right antecubital area, using aseptic technique. ap3 Blood collected. 09:46 Abdomen 1 View (KUB) XRAY In Process Unspecified. EDMS 09:50 No provider procedures requiring assistance completed. IV discontinued, intact, abad Pressure dressing applied. Administered Medications: 08:55 Drug: NS 0.9% 1000 ml Route: IV; Rate: 1 bolus; Site: right antecubital; ap3 09:07 Drug: Zofran (Ondansetron) 4 mg Route: IVP; Site: right antecubital; ap3 Medication: 08:18 VIS not applicable for this client. vg1 Outcome: 09:42 Discharge ordered by . aylin 09:50 Discharged to home ambulatory. abad 09:50 Condition: good 09:50 Discharge instructions given to Prescriptions given X 3. 09:51 Patient left the ED. abad Signatures: Dispatcher [employer] EDMA Simón Pederson MD MD cha Garcia, Rubi rg4 Gaviota Johnston RN RN ap3 Morenita Peterson RN RN vg1 Maritzar, Sharee, RN RN abad
--- NOTE | 2022-01-16 09:42 | EDPHYS ---
Physician Documentation [facility] Name: Chelsea Sapp Age: 56 yrs Sex: Female : 1965 Arrival Date: 01/16/2022 Time: 08:02 Bed 13 Private MD: ERIN Physician Simón Pederson HPI: 01/16 08:34 This 56 yrs old Female presents to ER via Ambulatory with complaints of aylin Vomiting. 08:34 The patient presents to the emergency department with nausea, vomiting, abdominal pain, aylin of the umbilical area. Onset: The symptoms/episode began/occurred 1 day(s) ago. Possible causes: unknown. The symptoms are aggravated by nothing. The symptoms are alleviated by nothing. Associated signs and symptoms: The patient has no apparent associated signs or symptoms. Severity of symptoms: At their worst the symptoms were mild in the emergency department the symptoms are unchanged. The patient has not experienced similar symptoms in the past. 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 - Social history:: Smoking status: Patient denies any tobacco usage or history of. ROS: 08:35 Constitutional: Negative for fever, chills, and weight loss, Eyes: Negative for injury, aylin pain, redness, and discharge, ENT: Negative for injury, pain, and discharge, Neck: Negative for injury, pain, and swelling, Cardiovascular: Negative for chest pain, palpitations, and edema, Respiratory: Negative for shortness of breath, cough, wheezing, and pleuritic chest pain, Back: Negative for injury and pain, : Negative for injury, bleeding, discharge, and swelling, MS/Extremity: Negative for injury and deformity, Skin: Negative for injury, rash, and discoloration, Neuro: Negative for headache, weakness, numbness, tingling, and seizure, Psych: Negative for depression, anxiety, suicide ideation, homicidal ideation, and hallucinations, Allergy/Immunology: Negative for hives, rash, and allergies, Endocrine: Negative for neck swelling, polydipsia, polyuria, polyphagia, and marked weight changes, Hematologic/Lymphatic: Negative for swollen nodes, abnormal bleeding, and unusual bruising. 08:35 Abdomen/GI: Positive for abdominal pain, nausea, vomiting, abdominal cramps, of the right upper quadrant, left upper quadrant, right lower quadrant and left lower quadrant. Exam: 08:35 Constitutional: This is a well developed, well nourished patient who is awake, alert, aylin and in no acute distress. Head/Face: Normocephalic, atraumatic. Eyes: Pupils equal round and reactive to light, extra-ocular motions intact. Lids and lashes normal. Conjunctiva and sclera are non-icteric and not injected. Cornea within normal limits. Periorbital areas with no swelling, redness, or edema. ENT: Nares patent. No nasal discharge, no septal abnormalities noted. Tympanic membranes are normal and external auditory canals are clear. Oropharynx with no redness, swelling, or masses, exudates, or evidence of obstruction, uvula midline. Mucous membranes moist. Neck: Trachea midline, no thyromegaly or masses palpated, and no cervical lymphadenopathy. Supple, full range of motion without nuchal rigidity, or vertebral point tenderness. No Meningismus. Chest/axilla: Normal chest wall appearance and motion. Nontender with no deformity. No lesions are appreciated. Cardiovascular: Regular rate and rhythm with a normal S1 and S2. No gallops, murmurs, or rubs. Normal PMI, no JVD. No pulse deficits. Respiratory: Lungs have equal breath sounds bilaterally, clear to auscultation and percussion. No rales, rhonchi or wheezes noted. No increased work of breathing, no retractions or nasal flaring. Back: No spinal tenderness. No costovertebral tenderness. Full range of motion. Skin: Warm, dry with normal turgor. Normal color with no rashes, no lesions, and no evidence of cellulitis. MS/ Extremity: Pulses equal, no cyanosis. Neurovascular intact. Full, normal range of motion. Neuro: Awake and alert, GCS 15, oriented to person, place, time, and situation. Cranial nerves II-XII grossly intact. Motor strength 5/5 in all extremities. Sensory grossly intact. Cerebellar exam normal. Normal gait. Psych: Awake, alert, with orientation to person, place and time. Behavior, mood, and affect are within normal limits. 08:35 Abdomen/GI: Inspection: distension, Bowel sounds: normal, Palpation: mild abdominal tenderness, in all quadrants, Liver: no appreciated palpable abnormalities, Hernia: not appreciated. 09:14 ECG was reviewed by the Attending Physician. aylin Vital Signs: 08:14 BP 138 / 95; Pulse 96; Resp 16; Temp 97.7; Pulse Ox 100% ; Weight 61.23 kg; Height 5 vg1 ft. 1 in. (154.94 cm); 09:07 BP 150 / 35; Pulse 90; Pulse Ox 100% ; ap3 08:14 Body Mass Index 25.51 (61.23 kg, 154.94 cm) vg1 MDM: 08:03 Patient medically screened. aylin 08:18 Patient medically screened. aylin 08:37 Differential diagnosis: gastritis, pancreatitis, diverticulitis, viral gastroenteritis, aylin gastroenteritis. Data reviewed: vital signs, nurses notes, lab test result(s), EKG, radiologic studies, plain films. Data interpreted: sharepoint engineer: not applicable for this patient encounter. rate is 96 beats/min, Pulse oximetry: on room air is 100 %. Test interpretation: by ED physician or midlevel provider: ECG, plain radiologic studies. Counseling: I had a detailed discussion with the patient and/or guardian regarding: the historical points, exam findings, and any diagnostic results supporting the discharge/admit diagnosis, lab results, radiology results, the need for outpatient follow up, for definitive care, a family practitioner. 01/16 08:29 Order name: Urine Dipstick-Ancillary; Complete Time: 08:32 EDIA 01/16 08:34 Order name: CBC with Diff; Complete Time: 09:41 [facility] 01/16 08:34 Order name: CMP; Complete Time: 09:41 [facility] 01/16 08:34 Order name: Lipase; Complete Time: 09:41 [facility] 01/16 08:34 Order name: Troponin High Sensitivity; Complete Time: 09:41 [facility] 01/16 08:45 Order name: Urine --Ancillary (enter results); Complete Time: 09:41 01/16 08:34 Order name: IV Saline Lock; Complete Time: 08:56 aylin 01/16 08:34 Order name: Labs collected and sent; Complete Time: 08:56 [facility] 01/16 08:34 Order name: EKG; Complete Time: 08:35 [facility] 01/16 08:34 Order name: EKG - Nurse/Tech; Complete Time: 09:06 [facility] 01/16 08:34 Order name: Abdomen 1 View (KUB) XRAY [facility] 01/16 08:34 Order name: Urine Test (obtain specimen); Complete Time: 08:46 [facility] EC:14 Rate is 80 beats/min. Rhythm is regular. QRS [place] is Normal. SC interval is normal. QRS aylin interval is normal. QT interval is normal. No Q waves. T waves are Normal. No ST changes noted. Clinical impression: Normal ECG, NSR w/ Non-specific ST/T Changes, and No evidence of ischemia. Interpreted by me. Reviewed by me. Administered Medications: 08:55 Drug: NS 0.9% 1000 ml Route: IV; Rate: 1 bolus; Site: right antecubital; ap3 09:07 Drug: Zofran (Ondansetron) 4 mg Route: IVP; Site: right antecubital; ap3 Disposition Summary: 01/16/22 09:42 Discharge Ordered Location: Home aylin Problem: new aylin Symptoms: have improved aylin Condition: Stable aylin Diagnosis - Vomiting aylin - Abdominal tenderness aylin Followup: aylin - With: Private Physician - When: 2 - 3 days - Reason: Recheck today's complaints, Continuance of care, Re-evaluation by your physician Discharge Instructions: - Discharge Summary Sheet aylin - Abdominal Pain, Adult aylin - Abdominal Pain, Adult, [id number] aylin - Vomiting, Adult aylin Forms: - Medication Reconciliation Form aylin - Thank You Letter aylin - Antibiotic Education aylin - Prescription Opioid Use aylin - Work release form jd3 Prescriptions: - Pepcid 20 mg Oral Tablet - take 1 tablet by ORAL route every 12 hours for 10 days; 20 tablet; Refills: 0, [facility] Product Selection Permitted - Zofran 4 mg Oral Tablet - take 1 tablet by ORAL route every 12 hours As needed; 20 tablet; Refills: 0, aylin Product Selection Permitted - dicyclomine 20 mg Oral Tablet - take 1 tablet by ORAL route 4 times per day; 28 tablet; Refills: 0, Product aylin Selection Permitted Signatures: Dispatcher [employer] Simón Vega MD MD cha Prokisch, Amanda RN RN ap3 Morenita Peterson RN RN vg1
--- NOTE | 2022-01-16 09:56 | RAD REPORT ---
EXAM DESCRIPTION: RAD - Abdomen 1 View (KUB) - 01/16/2022 9:44 am CLINICAL HISTORY: ABD PAIN COMPARISON: No comparisonsNo comparisons FINDINGS: Bowel gas pattern is non-specific. Moderate stool volume is present filling but not dilati ng the colon from cecum to splenic flexure. Stomach is not distended abnormally. Cholecystectomy clip s are seen. No obstruction, free air or pneumatosis. No suspicious calcifications. No significant bony findings IMPRESSION: Negative KUB examination for acute or emergent finding.
[2022-01-16 10:08] VITALS: TEMP 97.7; O2SAT 100
[2022-01-16 10:22] VITALS: BP 150/35
--- NOTE | 2022-01-18 12:54 | EKG ---
Test Date: 2022-01-16 Test Time: 08:59:26 Medical Leader: ALP MEASUREMENT RESULTS: Intervals: Rate: 80 TN: 158 QRSD: 78 QT: 372 QTc: 429 [place]: P: 74 TN: 158 QRS: 67 T: 69 INTERPRETIVE STATEMENTS: Normal sinus rhythm Normal ECG Compared to ECG 06/22/2020 15:38:17 Myocardial infarct finding no longer present Electronically Signed On 01-18-22 12:52:53 CDT by Jake Holden
== END 2022-01-16 09:51 | disposition home or self-care (01) ==
LOC: ER 07:58
DX: R11.2 Nausea with vomiting, unspecified (principal); R10.819 Abdominal tenderness, unspecified site
CPT/HCPCS: 36415; 74018; 80053; 81003; 81025; 83690; 84484; 85025; 93005; 96374; 99284; J2405; J7030